=== PATIENT | female | born 1970 | race Caucasian/White ===

== ENCOUNTER 2018-10-04 10:26 | Inpatient (IN) | payer MEDICARE, OTHER ==
[2018-10-04] MEDS ORDERED: IPRATROPIUM-ALBUTEROL 3 ML NEB INHALATION STA (10:41)
[2018-10-04] MEDS ORDERED: LORazepam 2 MG/ML INJ IV STA ×2 (10:46→11:48)
[2018-10-04] MEDS ORDERED: SODIUM CHLORIDE 0.9% 500 ML 500 ML IV STA (10:46)
--- NOTE | 2018-10-04 11:26 | ED ---
SOB HPI <Joe Contreras - Last Filed: 10/04/18 12:33> - General Source: patient, RN notes reviewed Mode of arrival: wheelchair Limitations: no limitations <Timo Bray - Last Filed: 10/04/18 12:36> - General Chief Complaint: Shortness of Breath Stated Complaint: john Time Seen by Provider: 10/04/18 10:36 - History of Present Illness Initial Comments: 48-year-old female presents emergency Department chief complaint of shortness of breath. Patient has known COPD. She's had increased cough, congestion shortness with the last 3 days. She is out of her updraft medications. Patient denies any known fever or chills. She denies any chest pain. She states she just cannot get a full breath in. Patient denies any nausea vomiting diarrhea constipation. Patient has no nasal congestion. (Timo Bray) - Related Data Home Medications Medication Instructions Recorded Confirmed Albuterol Sulfate [Proair Hfa] 2 puff INHALATION RT-Q4H PRN 14 10/04/18 Albuterol Nebulized [Ventolin 2.5 mg INHALATION RT-BID PRN 10/04/18 10/04/18 Nebulized] Budesonide/Formoterol Fumarate 2 puff INHALATION RT-BID PRN 10/04/18 10/04/18 [Symbicort 160-4.5 Mcg Inhaler] Allergies Allergy/AdvReac Type Severity Reaction Status Date / Time Penicillins Allergy Unknown Verified 10/04/18 11:57 Childhood Review of Systems ROS Other: All systems not noted in ROS Statement are negative. <Joe Contreras - Last Filed: 10/04/18 12:33> ROS Other: All systems not noted in ROS Statement are negative. <Timo Bray - Last Filed: 10/04/18 12:36> ROS Statement: Those systems with pertinent positive or pertinent negative responses have been documented in the HPI. Past Medical History Past Medical History: Asthma, COPD, Deep Vein Thrombosis (DVT), Osteoarthritis ( OA) Additional Past Medical History / Comment(s): KIDNEY STONES History of Any Multi-Drug Resistant Organisms: None Reported Past Surgical History: Orthopedic Surgery Additional Past Surgical History / Comment(s): right knee arthroscopic , RIGHT OVARY REMOVED, Past Anesthesia/Blood Transfusion Reactions: No Reported Reaction Past Psychological History: Anxiety, Depression Smoking Status: Former smoker - Past Family History Mother Family Medical History: No Reported History Additional Family Medical History / Comment(s): Diverticulitis Father Family Medical History: Cancer, Congestive Heart Failure (CHF), Diabetes Mellitus, Eye Disorder, Hypertension, Skin Disorder Additional Family Medical History / Comment(s): Cancer from Agent [place], Glaucoma <Timo Bray - Last Filed: 10/04/18 12:36> General Exam Limitations: no limitations General appearance: alert, in no apparent distress Head exam: Present: atraumatic, normocephalic, normal inspection Eye exam: Present: normal appearance, PERRL, EOMI. Absent: scleral icterus, conjunctival injection, periorbital swelling ENT exam: Present: normal oropharynx, mucous membranes moist, TM's normal bilaterally, normal external ear exam Neck exam: Present: normal inspection, full ROM. Absent: tenderness, meningismus, lymphadenopathy Respiratory exam: Present: respiratory distress (Moderate), wheezes. Absent: normal lung sounds bilaterally, rales, rhonchi, stridor Cardiovascular Exam: Present: normal rhythm, tachycardia, normal heart sounds. Absent: systolic murmur, diastolic murmur, rubs, gallop, clicks GI/Abdominal exam: Present: soft, normal bowel sounds. Absent: distended, tenderness, guarding, rebound, rigid <Timo Bray - Last Filed: 10/04/18 12:36> Course <Joe Contreras - Last Filed: 10/04/18 12:33> <Timo Bray - Last Filed: 10/04/18 12:36> Vital Signs 10/04/18 10/04/18 10/04/18 10:29 10:54 11:00 Temperature 98.6 F Pulse Rate 125 H 120 H 118 H Respiratory 25 H Rate Blood Pressure 168/104 O2 Sat by Pulse 95 Oximetry 10/04/18 10/04/18 10/04/18 11:09 12:24 12:34 Temperature Pulse Rate 120 H 112 H 116 H Respiratory Rate Blood Pressure O2 Sat by Pulse Oximetry - Reevaluation(s) Reevaluation #1: 10/04/18 12:33 PA supervision: I proceeded [id number] evaluation the patient she presents with complaints of shortness of breath for last several days she does have a history of COPD she did apparently run out of her medication she also does still smoke cigarettes. She is receiving a total of 3 nebulizer treatments thus far with very minimal improvement. She is dyspneic just with conversation and minimal movements. She will be admitted for inpatient treatment of COPD exacerbation. 10/04/18 12:34 Patient does demonstrate concern is for wheezing with markedly diminished breath sounds bilaterally. She does demonstrate some respiratory distress. She also stated she had some discomfort to her midline of her lower abdomen above her umbilicus after coughing she does have some evidence of rectus strain a hernia that ruled out. (Joe Contreras) Medical Decision Making - Lab Data Result diagrams: 10/04/18 11:10 10/04/18 11:10 <Joe Contreras - Last Filed: 10/04/18 12:33> - Lab Data Result diagrams: 10/04/18 11:10 10/04/18 11:10 <Timo Bray - Last Filed: 10/04/18 12:36> - Medical Decision Making 48-year-old female presented for dyspnea. Patient's found to have COPD exacerbation. Patient had lab work, EKG, chest x-ray. Patient had mild improvement after 2 DuoNeb treatments. Patient given additional albuterol treatment. Patient was given steroids was started on 60 every 6. Patient was counseled in detail greater than 3 minutes for smoking cessation. (Timo Bray ) - Lab Data Lab Results 10/04/18 10/04/18 10/04/18 Range/Units 11:10 11:10 11:10 WBC 8.9 (3.8-10.6) k/uL RBC 5.06 (3.80-5.40) m/uL Hgb 13.1 (11.4-16.0) gm/dL Hct 41.4 (34.0-46.0) % MCV 81.9 (80.0-100.0) fL MCH 25.8 (25.0-35.0) pg MCHC 31.5 (31.0-37.0) g/dL RDW 18.0 H (11.5-15.5) % Plt Count 325 (150-450) k/uL Neutrophils % 74 % Lymphocytes % 18 % Monocytes % 5 % Eosinophils % 1 % Basophils % 0 % Neutrophils # 6.6 (1.3-7.7) k/uL Lymphocytes # 1.6 (1.0-4.8) k/uL Monocytes # 0.4 (0-1.0) k/uL Eosinophils # 0.1 (0-0.7) k/uL Basophils # 0.0 (0-0.2) k/uL Hypochromasia Slight Anisocytosis Slight Microcytosis Slight PT (9.0-12.0) sec INR (<1.2) APTT (22.0-30.0) sec Sodium 140 (137-145) mmol/L Potassium 4.4 (3.5-5.1) mmol/L Chloride 106 (98-107) mmol/L Carbon Dioxide 25 (22-30) mmol/L Anion Gap 9 mmol/L BUN 11 (7-17) mg/dL Creatinine 0.77 (0.52-1.04) mg/dL Est GFR (CKD-EPI)AfAm >90 (>60 ml/min/1.73 sqM) Est GFR (CKD-EPI)NonAf >90 (>60 ml/min/1.73 sqM) Glucose 104 H (74-99) mg/dL Calcium 9.4 (8.4-10.2) mg/dL Magnesium 2.1 (1.6-2.3) mg/dL Total Bilirubin 0.4 (0.2-1.3) mg/dL AST 19 (14-36) U/L ALT 25 (9-52) U/L Alkaline Phosphatase 101 (38-126) U/L Total Creatine Kinase 49 (30-135) U/L CK-MB (CK-2) 0.2 (0.0-2.4) ng/mL CK-MB (CK-2) Rel Index 0.4 Troponin I <0.012 (0.000-0.034) ng/mL NT-Pro-B Natriuret Pep pg/mL Total Protein 7.7 (6.3-8.2) g/dL Albumin 4.5 (3.5-5.0) g/dL 10/04/18 10/04/18 Range/Units 11:10 11:10 WBC (3.8-10.6) k/uL RBC (3.80-5.40) m/uL Hgb (11.4-16.0) gm/dL Hct (34.0-46.0) % MCV (80.0-100.0) fL MCH (25.0-35.0) pg MCHC (31.0-37.0) g/dL RDW (11.5-15.5) % Plt Count (150-450) k/uL Neutrophils % % Lymphocytes % % Monocytes % % Eosinophils % % Basophils % % Neutrophils # (1.3-7.7) k/uL Lymphocytes # (1.0-4.8) k/uL Monocytes # (0-1.0) k/uL Eosinophils # (0-0.7) k/uL Basophils # (0-0.2) k/uL Hypochromasia Anisocytosis Microcytosis PT 10.0 (9.0-12.0) sec INR 0.9 (<1.2) APTT 23.2 (22.0-30.0) sec Sodium (137-145) mmol/L Potassium (3.5-5.1) mmol/L Chloride (98-107) mmol/L Carbon Dioxide (22-30) mmol/L Anion Gap mmol/L BUN (7-17) mg/dL Creatinine (0.52-1.04) mg/dL Est GFR (CKD-EPI)AfAm (>60 ml/min/1.73 sqM) Est GFR (CKD-EPI)NonAf (>60 ml/min/1.73 sqM) Glucose (74-99) mg/dL Calcium (8.4-10.2) mg/dL Magnesium (1.6-2.3) mg/dL Total Bilirubin (0.2-1.3) mg/dL AST (14-36) U/L ALT (9-52) U/L Alkaline Phosphatase (38-126) U/L Total Creatine Kinase (30-135) U/L CK-MB (CK-2) (0.0-2.4) ng/mL CK-MB (CK-2) Rel Index Troponin I (0.000-0.034) ng/mL NT-Pro-B Natriuret Pep 38 pg/mL Total Protein (6.3-8.2) g/dL Albumin (3.5-5.0) g/dL Disposition <Joe Contreras - Last Filed: 10/04/18 12:33> <Timo Bray - Last Filed: 10/04/18 12:36> Clinical Impression: Acute exacerbation of chronic obstructive pulmonary disease (COPD) Disposition: ADMITTED IP TO THIS HOSP Condition: Fair Referrals: Jerman Darnell MD [Primary Care Provider] - 1-2 days
[2018-10-04 11:28] LABS: Anisocytosis Slight; Basophils % (A) 0 %; Eosinophils # (A) 0.1 k/uL (0-0.7); Eosinophils % (A) 1 %; HCT 41.4 % (34.0-46.0); HGB 13.1 gm/dL (11.4-16.0); Hypochromasia Slight; Lymphocytes # (A) 1.6 k/uL (1.0-4.8); Lymphocytes % (A) 18 %; MCH 25.8 pg (25.0-35.0); MCHC 31.5 g/dL (31.0-37.0); MCV 81.9 fL (80.0-100.0); Mean Platelet Volume 6.6; Microcytosis Slight; Monocytes # (A) 0.4 k/uL (0-1.0); Monocytes % (A) 5 %; Neutrophils # (A) 6.6 k/uL (1.3-7.7); Neutrophils % (A) 74 %; Platelet Count 325 k/uL (150-450); RBC 5.06 m/uL (3.80-5.40); WBC 8.9 k/uL (3.8-10.6)
[2018-10-04 11:43] LABS: ALT 25 U/L (9-52); AST 19 U/L (14-36); Albumin 4.5 g/dL (3.5-5.0); Alkaline Phosphatase 101 U/L (38-126); Anion Gap 9 mmol/L; Blood Urea Nitrogen 11 mg/dL (7-17); Calcium 9.4 mg/dL (8.4-10.2); Carbon Dioxide 25 mmol/L (22-30); Chloride 106 mmol/L (98-107); Glucose 104 mg/dL (74-99); Magnesium 2.1 mg/dL (1.6-2.3); Potassium 4.4 mmol/L (3.5-5.1); Sodium 140 mmol/L (137-145); Total Bilirubin 0.4 mg/dL (0.2-1.3); Total Protein 7.7 g/dL (6.3-8.2)
--- NOTE | 2018-10-04 11:47 | XR ---
EXAMINATION TYPE: XR chest 2V DATE OF EXAM: 10/04/2018 COMPARISON: 03/27/2014 HISTORY: Difficulty breathing TECHNIQUE: Frontal and lateral views of the chest are obtained. FINDINGS: There is no focal air space opacity, pleural effusion, or pneumothorax seen. The cardiac silhouette size is within normal limits. The osseous structures are intact. IMPRESSION: No acute cardiopulmonary process.
[2018-10-04 11:52] LABS: Creatine Kinase 49 U/L (30-135)
[2018-10-04 12:05] LABS: Creatine Kinase MB 0.2 ng/mL (0.0-2.4); Troponin I <0.012 ng/mL (0.000-0.034)
[2018-10-04 12:06] LABS: INR 0.9 (<1.2); Partial Thromboplastin Time 23.2 sec (22.0-30.0)
[2018-10-04] MEDS ORDERED: methylPREDNISolone SOD SUCCI 125 MG/2 ML VIAL IV STA (12:15)
[2018-10-04] MEDS ORDERED: ALBUTEROL NEBULIZED 2.5 MG/3 ML INHALATION STA (12:15)
[2018-10-04] MEDS ORDERED: KETOROLAC 30 MG/ML 1 ML VIAL IVP STA (12:32)
[2018-10-04] MEDS ORDERED: ALBUTEROL NEBULIZED 2.5 MG/3 ML INHALATION PRN ×2 (12:33→19:31)
[2018-10-04] MEDS: BUTALB/APAP/CAFF 50-325-40MG TAB PO PRN (14:07)
[2018-10-04] MEDS: IPRATROPIUM-ALBUTEROL 3 ML NEB INHALATION SCH ×2 (15:54→19:22)
[2018-10-04] MEDS: methylPREDNISolone SOD SUCCI 125 MG/2 ML VIAL IV SCH ×2 (17:23→23:44)
[2018-10-04] MEDS: SYMBICORT 160-4.5 MCG INHALER INHALATION PRN (19:22)
[2018-10-04] MEDS ORDERED: ALBUTEROL INHALER 60 PUFF/8 GM INHALER INHALATION PRN (19:31)
--- NOTE | 2018-10-04 19:54 | P.HPIM ---
History of Present Illness H&P Date: 10/04/18 Chief Complaint: Acute respiratory failure, COPD exacerbation, severe bronchitis , tachycardi 48-year-old female one of Dr. capone's patient with past medical history of COPD, asthma, DVT thrombosis osteoarthritis and chronic depression is on to have history of kidney stone and chronic smoking who developed to have worsening dyspnea and shortness of breath for the last 3 days become much worse lately and up having inspiratory expiratory wheezes with worsening symptoms in the last 24 hours ended up coming to the emergency department at [facility] where was seen and evaluated was very hypoxic the tip neck tachycardic chest x-ray did not reveal any consultation at the time she was diagnosed with severe bronchitis tachycardia and COPD excessive patient started on Solu-Medrol IV azithromycin along with updraft treatment consult pulmonary and admit patient to the hospital for the above problem. Review of Systems CONSTITUTIONAL: Well-developed no acute respiratory distress. EYES: No icterus sclerae, no conjunctivitis. EARS, NOSE, MOUTH, THROAT, and FACE: No sore throat, lymphadenopathy, carotid bruits or deformity. RESPIRATORY: Severe dyspnea and shortness of breath and wheezes CARDIOVASCULAR: Palpitation and shortness of breath. GASTROINTESTINAL: No Abd pain, Nausea or vomiting, no Diarrhea or constipation, No GI Bleed, no distention or masses. GENITOURINARY: Negative for Hematuria or UTI, no kidney stones. INTEGUMENT/BREAST: Negative for any muscular injury with mild osteoarthritis.. HEMATOLOGIC/LYMPHATIC: Negative for bleed or purpura. MUSCULOSKELTAL: Negative for Myalgia or arthralgia. NEURLOGICAL: No LOC, Sz or syncope, blurred vision dizziness or abnormality.. BEHAVIORAL/PSYCH: Negative. ENDOCRINE: Negative. Past Medical History Past Medical History: Asthma, COPD, Deep Vein Thrombosis (DVT), Osteoarthritis ( OA) Additional Past Medical History / Comment(s): Bronchitis, chronic pain-back and cervical, migraines, DJD, DVT L leg in 2013, kidney stones. History of Any Multi-Drug Resistant Organisms: None Reported Past Surgical History: Orthopedic Surgery Additional Past Surgical History / Comment(s): right knee arthroscopic, R oophorectomy d/t cyst, bilateral cervical facet blocks. Past Anesthesia/Blood Transfusion Reactions: No Reported Reaction Smoking Status: Current every day smoker - Past Family History Mother Family Medical History: No Reported History Additional Family Medical History / Comment(s): Diverticulitis Father Family Medical History: Cancer, Congestive Heart Failure (CHF), Diabetes Mellitus, Eye Disorder, Hypertension Additional Family Medical History / Comment(s): Father was exposed to agent orange. He at the age of 46 from diabetic complications. Medications and Allergies Home Medications Medication Instructions Recorded Confirmed Type Albuterol Sulfate [Proair Hfa] 2 puff INHALATION RT-Q4H PRN 03/11/10/04/18 History Albuterol Nebulized [Ventolin 2.5 mg INHALATION RT-BID PRN 10/04/18 10/04/18 History Nebulized] Budesonide/Formoterol Fumarate 2 puff INHALATION RT-BID PRN 10/04/18 10/04/18 History [Symbicort 160-4.5 Mcg Inhaler] Allergies Allergy/AdvReac Type Severity Reaction Status Date / Time Penicillins Allergy Unknown Verified 10/04/18 11:57 Childhood Physical Exam Vitals: Vital Signs Temp Pulse Pulse Resp BP BP Pulse Ox 10/04/18 19:34 98 10/04/18 19:23 98 10/04/18 16:02 100 10/04/18 15:55 100 10/04/18 13:57 97.5 F L 116 H 16 149/80 95 10/04/18 13:10 18 142/90 95 10/04/18 12:34 116 H 10/04/18 12:24 112 H 10/04/18 11:09 120 H 10/04/18 11:00 118 H 10/04/18 10:54 120 H 10/04/18 10:29 98.6 F 125 H 25 H 168/104 95 Intake and Output 10/04/18 10/04/18 10/04/18 06:59 14:59 22:59 Intake Total 240 480 Balance 240 480 Intake: Oral 240 480 Other: # Voids 1 Weight 81.647 kg General Appearance: Alert, cooperative, in mild respiratory distress, appears stated age. Neck HEENT: Supple, no lymphadenopathy, no thyroid enlargement, no carotid bruits. Lungs: Decreased breath sound bilaterally with fine rhonchi positive mild lower lobe crackles and inspiratory expiratory wheezes. Chest Wall: Decrease expansion with deep inspiration no tenderness and no deformity was found on exam, no costochondral pain or discomfort. Heart: Regular rate and rhythm, S1, S2 normal, no murmur, rub or gallop positive tachycardia. Back: Symmetric, no curvature, ROM normal, no CVA tenderness. Abdomen: Soft, non-tender, bowel sounds active all four quadrants, no masses, no organomegaly. Extremities: Extremities normal, atraumatic, no cyanosis or edema. Pulses: 2+ and symmetric. Skin: Skin color, texture, tugor normal, no rashes or lesions. Neurologic: Alert oriented x3 cranial nerves II through XII intact, no motor deficit, no abnormal balance or gait. Results CBC & Chem 7: 10/04/18 11:10 10/04/18 11:10 Labs: Abnormal Lab Results - Last 24 Hours (Table) 10/04/18 10/04/18 Range/Units 11:10 11:10 RDW 18.0 H (11.5-15.5) % Glucose 104 H (74-99) mg/dL Thrombosis Risk Factor Assmnt - DVT/VTE Prophylaxis DVT/VTE Prophylaxis: Pharmacologic Prophylaxis ordered, Mechanical Prophylaxis ordered - Choose All That Apply Any of the Below Risk Factors Present?: Yes Each Factor Represents 1 point: Abnormal pulmonary function (COPD), Age 41-60 years, Obesity (BMI >25) Other Risk Factors: No Other congenital or acquired thrombophilia - If yes, enter type in comment: No Thrombosis Risk Factor Assessment Total Risk Factor Score: 3 Thrombosis Risk Factor Assessment Level: Moderate Risk Assessment and Plan Assessment: 1 acute respiratory failure: Secondary to COPD excessive patient along with severe bronchitis, will continue patient on O2, updraft treatment, Pulmicort and Solu-Medrol will consult pulmonary continue to watch patient hemodynamic status carefully. 2 COPD excessive patient: Consult pulmonary continue patient on Solu-Medrol Pulmicort and mixup with graft. 3 severe bronchitis: No sign of consolidation might be early pneumonitis in the right lower lobe will continue patient on Zithromax patient is ALLERGIC to Rocephin if needed can use Vanco her doxycycline in addition to it. 4 chronic history of smoking: Patient be on nicotine patch 14 mg daily. 5 tachycardia: Mostly secondary to but agonist with her updraft treatment continue to watch patient on heart monitor if continued to be symptomatic might use smaller dose of calcium channel jo ann. 6 GI prophylaxis: Patient will be on Pepcid 20 mg daily. 7 DVT prophylaxis: Patient will be on heparin 5000 units subcutaneous twice a day. CODE STATUS: Full code. Admit patient to inpatient status for more than 2 nights.[id number]
[2018-10-04 20:19] LABS: Glucose,Whole Blood 233 mg/dL (75-99)
[2018-10-04] MEDS ORDERED: DILTIAZEM ORAL 60 MG TAB PO STA (22:56)
[2018-10-05 04:57] LABS: Hemoglobin A1C 5.5 % (4.0-6.0)
[2018-10-05] MEDS: methylPREDNISolone SOD SUCCI 125 MG/2 ML VIAL IV SCH (06:20)
[2018-10-05 07:14] LABS: Glucose,Whole Blood 135 mg/dL (75-99)
[2018-10-05] MEDS: INSULIN ASPART 100 UNIT/ML 1 ML 10 ML VIAL SQ SCH ×4 (07:48→22:10)
[2018-10-05] MEDS: NICOTINE 14MG/24HR PATCH TRANSDERM SCH (07:48)
[2018-10-05] MEDS: IPRATROPIUM-ALBUTEROL 3 ML NEB INHALATION SCH ×4 (07:48→20:02)
[2018-10-05] MEDS: SYMBICORT 160-4.5 MCG INHALER INHALATION PRN ×2 (07:48→20:05)
[2018-10-05] MEDS ORDERED: DILTIAZEM ORAL 30 MG TAB PO SCH ×2 (09:00→13:45)
[2018-10-05] MEDS: AZITHROMYCIN 500 MG TAB PO SCH (09:13)
[2018-10-05] MEDS: BUTALB/APAP/CAFF 50-325-40MG TAB PO PRN ×2 (09:20→22:15)
[2018-10-05 11:24] LABS: Glucose,Whole Blood 191 mg/dL (75-99)
[2018-10-05] MEDS: ALPRAZolam 0.25 MG TAB PO PRN ×2 (12:36→22:17)
[2018-10-05] MEDS: DILTIAZEM ORAL 60 MG TAB PO SCH ×3 (13:53→22:10)
--- NOTE | 2018-10-05 15:47 | P.PN ---
Subjective Progress Note Date: 10/05/18 48-year-old female one of Dr. capone's patient with past medical history of COPD, asthma, DVT thrombosis osteoarthritis and chronic depression is on to have history of kidney stone and chronic smoking who developed to have worsening dyspnea and shortness of breath for the last 3 days become much worse lately and up having inspiratory expiratory wheezes with worsening symptoms in the last 24 hours ended up coming to the emergency department at [facility] where was seen and evaluated was very hypoxic the tip neck tachycardic chest x-ray did not reveal any consultation at the time she was diagnosed with severe bronchitis tachycardia and COPD excessive patient started on Solu-Medrol IV azithromycin along with updraft treatment consult pulmonary and admit patient to the hospital for the above problem. 10/05; patient continues to have shortness of breath. She states she is having some problems with anxiety and increased stress. 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 The water has been turned off to force her son out of the apartment. Social work consult has been requested. Patient is also noticed to be tachycardic and was started on Cardizem last evening. She is on a nicotine patch. Plan to increase Cardizem. Solu-Medrol will be decreased to 40 mg every 8 hours. Patient is followed by Dr. Wetzel. Review of Systems CONSTITUTIONAL: Well-developed no acute respiratory distress. EYES: No icterus sclerae, no conjunctivitis. EARS, NOSE, MOUTH, THROAT, and FACE: No sore throat, lymphadenopathy, carotid bruits or deformity. RESPIRATORY: Severe dyspnea and shortness of breath and wheezes CARDIOVASCULAR: Palpitation and shortness of breath. GASTROINTESTINAL: No Abd pain, Nausea or vomiting, no Diarrhea or constipation, No GI Bleed, no distention or masses. GENITOURINARY: Negative for Hematuria or UTI, no kidney stones. INTEGUMENT/BREAST: Negative for any muscular injury with mild osteoarthritis.. HEMATOLOGIC/LYMPHATIC: Negative for bleed or purpura. MUSCULOSKELTAL: Negative for Myalgia or arthralgia. NEURLOGICAL: No LOC, Sz or syncope, blurred vision dizziness or abnormality.. BEHAVIORAL/PSYCH: complains of anxiety. ENDOCRINE: Negative. Objective - Vital Signs Vital signs: Vital Signs Temp 96.5 F L 10/05/18 05:00 Pulse 100 10/05/18 08:01 Resp 16 10/05/18 05:00 BP 175/80 10/05/18 05:00 Pulse Ox 94 L 10/05/18 05:00 Intake & Output 10/04/18 10/05/18 10/05/18 18:59 06:59 18:59 Intake Total 720 1080 Balance 720 1080 Weight 81.647 kg Intake: IV 10 0.9 10 Oral 720 1070 Other: Voiding Method Toilet Toilet # Voids 1 2 - Exam General Appearance: Alert, cooperative, in no respiratory distress, appears stated age. Neck HEENT: Supple, no lymphadenopathy, no thyroid enlargement, no carotid bruits. Lungs: Decreased breath sound bilaterally with fine rhonchi positive mild lower lobe crackles and inspiratory expiratory wheezes. Chest Wall: Decrease expansion with deep inspiration no tenderness and no deformity was found on exam, no costochondral pain or discomfort. Heart: Regular rate and rhythm, S1, S2 normal, no murmur, rub or gallop positive tachycardia. Back: Symmetric, no curvature, ROM normal, no CVA tenderness. Abdomen: Soft, non-tender, bowel sounds active all four quadrants, no masses, no organomegaly. Extremities: Extremities normal, atraumatic, no cyanosis or edema. Pulses: 2+ and symmetric. Skin: Skin color, texture, tugor normal, no rashes or lesions. Neurologic: Alert oriented x3 cranial nerves II through XII intact, no motor deficit, no abnormal balance or gait. - Labs CBC & Chem 7: 10/04/18 11:10 10/04/18 11:10 Labs: Abnormal Lab Results - Last 24 Hours (Table) 10/04/18 10/04/18 10/04/18 Range/Units 11:10 11:10 20:17 RDW 18.0 H (11.5-15.5) % Glucose 104 H (74-99) mg/dL POC Glucose (mg/dL) 233 H (75-99) mg/dL 10/05/18 Range/Units 07:13 RDW (11.5-15.5) % Glucose (74-99) mg/dL POC Glucose (mg/dL) 135 H (75-99) mg/dL Assessment and Plan Plan: 1 acute respiratory failure: Secondary to COPD excessive patient along with severe bronchitis, will continue patient on O2, updraft treatment, Pulmicort and Solu-Medrol decreased to 40 mg every [address] Damari smith. 2 COPD excessive patient: Consult pulmonary continue patient on Solu-Medrol Pulmicort and mixup with graft. 3 severe bronchitis: No sign of consolidation might be early pneumonitis in the right lower lobe will continue patient on Zithromax patient is ALLERGIC to Rocephin if needed can use Vanco her doxycycline in addition to it. 4 chronic history of smoking: Patient be on nicotine patch 14 mg daily. 5 tachycardia: Mostly secondary to but agonist with her updraft treatment continue to watch patient on heart monitor if continued to be symptomatic might use smaller dose of calcium channel jo ann. 6 GI prophylaxis: Patient will be on Pepcid 20 mg daily. 7 DVT prophylaxis: Patient will be on heparin 5000 units subcutaneous twice a day. CODE STATUS: Full code. discharge plan: Return home. Consult with social work regarding home situation. Impression and plan of care have been directed as dictated by the signing physician. Kathryn Guevara nurse practitioner acting as scribe for signing physician.
--- NOTE | 2018-10-05 16:33 | P.CNPUL ---
History of Present Illness Consult date: 10/05/18 Reason for consult: dyspnea, COPD History of present illness: A pleasant 48-year-old female patient with known history of COPD coming in for increased dyspnea cough chest that is so wheezing. The patient has long history of smoking and she was smoking up to 2 pack of sedative sitting current she is down to 1 pack of cigarettes a day. She is not taking or using any form of weight and suspected medications regarding her COPD which is mainly relying on albuterol nebulizer on an as-needed basis. She has been smoking and she's been exposed to cold weather and she thinks these were the main triggers for acute COPD exacerbation and the patient came in for increased dyspnea cough and wheeze. Chest x-ray shows no acute abnormalities. The patient was slightly tachycardic and she was in sinus tachycardia that was attributed to the above- mentioned exacerbation. No fever. No chills. No hemoptysis. No pleurisy. No swelling in lower extremities. She has had a previous DVT in the left lower extremity and this was many years back that was treated and currently she is off anticoagulation. No exposure to sick contacts. No chills history. No aspiration. No history of coronary artery disease or congestion heart failure. She is currently on a combination of DuoNeb nebulized she was on the clock and IV Solu Medrol and she states that she is already feeling better. She has oxygen at home that she is on the when necessary basis. She has seen Dr. Harmon many years back, and her last hospital physician for COPD exacerbation was in 2012. Review of Systems Constitutional: Denies chills, Denies fever Eyes: denies as per HPI, denies blurred vision, denies bulging eye, denies decreased vision, denies diplopia, denies discharge, denies dry eye, denies irritation, denies itching, denies pain, denies photophobia, denies loss of peripheral vision, denies loss of vision, denies tunnel vision/blind spots Ears: deny: decreased hearing, ear discharge, earache, tinnitus Ears, nose, mouth and throat: Denies headache, Denies sore throat Breasts: absent: as per HPI, change in shape, gynecomastia, masses, nipple discharge, pain, skin changes, swelling Cardiovascular: Reports decreased exercise tolerance, Reports dyspnea on exertion Respiratory: Reports cough, Reports cough with sputum, Reports dyspnea, Reports wheezing Gastrointestinal: Denies abdominal pain, Denies diarrhea, Denies nausea, Denies vomiting Genitourinary: Denies dysuria, Denies hematuria Musculoskeletal: Reports as per HPI Musculoskeletal: absent: ankle pain, ankle stiffness, ankle swelling, as per HPI , elbow pain, elbow stiffness, elbow swelling, foot pain, foot stiffness, foot swelling, hand pain, hand stiffness, hand swelling, hip pain, hip stiffness, hip swelling, knee pain, knee stiffness, knee swelling, shoulder pain, shoulder stiffness, shoulder swelling, wrist pain, wrist stiffness, wrist swelling Integumentary: Denies pruritus, Denies rash Neurological: Reports as per HPI Psychiatric: Reports as per HPI Endocrine: Reports as per HPI Hematologic/Lymphatic: Reports as per HPI Allergic/Immunologic: Reports as per HPI Past Medical History Past Medical History: Asthma, COPD, Deep Vein Thrombosis (DVT), Osteoarthritis ( OA) Additional Past Medical History / Comment(s): Bronchitis, chronic pain-back and cervical, migraines, DJD, DVT L leg in 2012, kidney stones. History of Any Multi-Drug Resistant Organisms: None Reported Past Surgical History: Orthopedic Surgery Additional Past Surgical History / Comment(s): right knee arthroscopic, R oophorectomy d/t cyst, bilateral cervical facet blocks. Past Anesthesia/Blood Transfusion Reactions: No Reported Reaction Smoking Status: Current every day smoker - Past Family History Mother Family Medical History: No Reported History Additional Family Medical History / Comment(s): Diverticulitis Father Family Medical History: Cancer, Congestive Heart Failure (CHF), Diabetes Mellitus, Eye Disorder, Hypertension Additional Family Medical History / Comment(s): Father was exposed to agent orange. He at the age of 46 from diabetic complications. Medications and Allergies Home Medications Medication Instructions Recorded Confirmed Type Albuterol Sulfate [Proair Hfa] 2 puff INHALATION RT-Q4H PRN 03/11/10/04/18 History Albuterol Nebulized [Ventolin 2.5 mg INHALATION RT-BID PRN 10/04/18 10/04/18 History Nebulized] Budesonide/Formoterol Fumarate 2 puff INHALATION RT-BID PRN 10/04/18 10/04/18 History [Symbicort 160-4.5 Mcg Inhaler] Allergies Allergy/AdvReac Type Severity Reaction Status Date / Time Penicillins Allergy Unknown Verified 12/06/18 11:57 Childhood Physical Exam Vitals: Vital Signs Temp Pulse Pulse Resp BP Pulse Ox 10/05/18 16:22 90 10/05/18 16:07 92 96 10/05/18 12:29 97.9 F 117 H 16 125/64 96 10/05/18 12:05 96 10/05/18 11:55 96 10/05/18 08:01 100 10/05/18 07:48 104 H 10/05/18 05:00 96.5 F L 100 16 175/80 94 L 10/05/18 00:00 111 H 20 10/04/18 21:20 98.7 F 127 H 20 151/67 94 L 10/04/18 19:34 98 10/04/18 19:23 98 Intake and Output 10/05/18 10/05/18 10/05/18 06:59 14:59 22:59 Intake Total 590 Balance 590 Intake: Oral 590 Other: Voiding Method Toilet Toilet # Voids 2 # Bowel Movements 0 Gen. appearance, comfortable likely distress. Head exam was generally normal. There was no scleral icterus or corneal arcus. Mucous membranes were moist. Neck was supple and without jugular venous distension, thyromegaly, or carotid bruits. Carotids were easily palpable bilaterally. There was no adenopathy. Lungs sounds are diminished bilaterally along with prolongation of expiratory phase of breathing and scattered external wheezes without the lung belcher bilaterally. Cardiac exam revealed the PMI to be normally situated and sized. The rhythm was regular and no extrasystoles were noted during several minutes of auscultation. The first and second heart sounds were normal and physiologic splitting of the second heart sound was noted. There were no murmurs, rubs, clicks, or gallops. Abdominal exam revealed normal bowel sounds. The abdomen was soft, non-tender, and without masses, organomegaly, or appreciable enlargement of the abdominal aorta. Examination of the extremities revealed easily palpable radial, femoral and pedal pulses. There was no cyanosis, clubbing or edema. Examination of the skin revealed no evidence of significant rashes, suspicious appearing nevi or other concerning lesions. Neurologically awake and alert and there is no focal neurological deficits. Results - Laboratory Findings CBC and BMP: 10/04/18 11:10 10/04/18 11:10 PT/INR, D-dimer PT 10.0 sec (9.0-12.0) 10/04/18 11:10 INR 0.9 (<1.2) 10/04/18 11:10 Abnormal lab findings: Abnormal Labs 10/04/18 10/04/18 10/04/18 11:10 11:10 20:17 RDW 18.0 H Glucose 104 H POC Glucose (mg/dL) 233 H 10/05/18 10/05/18 07:13 11:23 RDW Glucose POC Glucose (mg/dL) 135 H 191 H - Diagnostic Findings Chest x-ray: image reviewed Assessment and Plan Assessment: assessment 1 acute COPD exacerbation, chest x-ray free of any acute pulmonary infiltrates. Exacerbating factor could've been cold exposure/second exposures 2 chronic hypoxic respiratory failure related to COPD and the patient is O2 dependent on outpatient basis 3 chronic nicotine addiction 4 remote history of a DVT of the left lower extremity back in 2012 5 sinus tachycardia 6chronic osteoarthritis 7 chronic pain involving the back and the neck along with history of degenerative arthritis 8 history of kidney stones Plan smoking cessation counseling was done. Continue DuoNeb nebulized treatments around the clock. Continue obesity Medrol. Ideally would like to put this patient on a maintenance inhaler, a combination of long-acting cholinergic and beta agonists. She tells that she does not have any medication coverage for the step of COPD medications and the cost of the medications quite high.would like to investigate this further and see if there is any affordable maintenance inhaler that she continues on outpatient basis. Outpatient PFT. Meanwhile during her inpatient stay, continue current treatment and emphasized and smoking cessation keep her on oxygen at 2 L per minute nasal cannula which she can also use on outpatient basis. Offer nicotine patch. Chest x-ray was reviewed.monitor the cardiac rhythm. Continue with oral Cardizem. We'll continue to follow.
[2018-10-05 16:35] LABS: Glucose,Whole Blood 159 mg/dL (75-99)
[2018-10-05] MEDS: methylPREDNISolone SOD SUCCI 40 MG/ML 1 ML VIAL IV SCH (17:27)
[2018-10-05 20:48] LABS: Glucose,Whole Blood 211 mg/dL (75-99)
[2018-10-06] MEDS: methylPREDNISolone SOD SUCCI 40 MG/ML 1 ML VIAL IV SCH ×2 (01:12→09:31)
[2018-10-06 07:16] LABS: Glucose,Whole Blood 123 mg/dL (75-99)
[2018-10-06] MEDS: INSULIN ASPART 100 UNIT/ML 1 ML 10 ML VIAL SQ SCH ×2 (07:55→12:52)
[2018-10-06] MEDS: SYMBICORT 160-4.5 MCG INHALER INHALATION PRN (08:46)
[2018-10-06] MEDS: IPRATROPIUM-ALBUTEROL 3 ML NEB INHALATION SCH ×2 (08:46→12:07)
[2018-10-06] MEDS: ALPRAZolam 0.25 MG TAB PO PRN (09:31)
[2018-10-06] MEDS: NICOTINE 14MG/24HR PATCH TRANSDERM SCH (09:31)
[2018-10-06] MEDS: DILTIAZEM ORAL 60 MG TAB PO SCH (09:32)
[2018-10-06] MEDS: AZITHROMYCIN 500 MG TAB PO SCH (09:32)
--- NOTE | 2018-10-06 10:33 | ECHOF ---
Referral Reason:lvfunction MEASUREMENTS -------- HEIGHT: 162.6 cm WEIGHT: 81.6 kg BP: RVIDd: 2.2 cm (< 3.3) IVSd: 1.3 cm (0.6 - 1.1) LVIDd: 3.9 cm (3.9 - 5.3) LVPWd: 1.2 cm (0.6 - 1.1) IVSs: 1.4 cm LVIDs: 2.8 cm LVPWs: 0.9 cm Ao Diam: 2.9 cm (2.0 - 3.7) AV Cusp: 1.8 cm (1.5 - 2.6) LA Diam: 3.2 cm (2.7 - 3.8) MV EXCURSION: 19.783 mm (> 18.000) MV EF SLOPE: 86 mm/s (70 - 150) EPSS: 0.7 cm MV E Nathan: 0.55 m/s MV DecT: 183 ms MV A Nathan: 1.01 m/s MV E/A Ratio: 0.54 RAP: 5.00 mmHg RVSP: 15.01 mmHg FINDINGS -------- Sinus rhythm. This was a technically adequate study. The left ventricular size is normal. There is mild concentric left ventricular hypertrophy. Overa ll left ventricular systolic function is normal with, an EF between 55 - 60 %. The right ventricle is normal in size. The left atrial size is normal. The right atrial size is normal. The aortic valve is trileaflet, and appears structurally normal. No aortic stenosis or regurgitation. Mild mitral annular calcification present. Mild mitral regurgitation is present. Mild tricuspid regurgitation present. There is no evidence of pulmonary hypertension. The right v entricular systolic pressure, as measured by Doppler, is 15.01mmHg. The aortic root size is normal. There is no pericardial effusion. CONCLUSIONS -------- 1. The left ventricular size is normal. 2. There is mild concentric left ventricular hypertrophy. 3. Overall left ventricular systolic function is normal with, an EF between 55 - 60 %. 4. The right ventricle is normal in size. 5. The left atrial size is normal. 6. The right atrial size is normal. 7. The aortic valve is trileaflet, and appears structurally normal. No aortic stenosis or regurgitati on. 8. Mild mitral annular calcification present. 9. Mild mitral regurgitation is present. 10. Mild tricuspid regurgitation present. 11. There is no evidence of pulmonary hypertension. 12. The right ventricular systolic pressure, as measured by Doppler, is 15.01mmHg. 13. The aortic root size is normal. 14. There is no pericardial effusion. [employer] HOME MANAGER: Sania Mcconnell RDCS
[2018-10-06 11:19] LABS: Glucose,Whole Blood 139 mg/dL (75-99)
--- NOTE | 2018-10-06 12:15 | P.PN ---
Subjective Progress Note Date: 10/06/18 48-year-old female one of Dr. capone's patient with past medical history of COPD, asthma, DVT thrombosis osteoarthritis and chronic depression is on to have history of kidney stone and chronic smoking who developed to have worsening dyspnea and shortness of breath for the last 3 days become much worse lately and up having inspiratory expiratory wheezes with worsening symptoms in the last 24 hours ended up coming to the emergency department at [facility] where was seen and evaluated was very hypoxic the tip neck tachycardic chest x-ray did not reveal any consultation at the time she was diagnosed with severe bronchitis tachycardia and COPD excessive patient started on Solu-Medrol IV azithromycin along with updraft treatment consult pulmonary and admit patient to the hospital for the above problem. 10/05; patient continues to have shortness of breath. She states she is having some problems with anxiety and increased stress. 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 The water has been turned off to force her son out of the apartment. Social work consult has been requested. Patient is also noticed to be tachycardic and was started on Cardizem last evening. She is on a nicotine patch. Plan to increase Cardizem. Solu-Medrol will be decreased to 40 mg every 8 hours. Patient is followed by Dr. Wetzel. 10/06: Patient is doing a lot better today and she wants to be discharged home today in follow-up with pulmonary as an outpatient. Less short of breath she has no coughing or hemoptysis, she has no abdominal pain, nausea, vomiting or diarrhea she is Valium for few days. Review of Systems CONSTITUTIONAL: Well-developed no acute respiratory distress. EYES: No icterus sclerae, no conjunctivitis. EARS, NOSE, MOUTH, THROAT, and FACE: No sore throat, lymphadenopathy, carotid bruits or deformity. RESPIRATORY: Severe dyspnea and shortness of breath and wheezes CARDIOVASCULAR: Palpitation and shortness of breath. GASTROINTESTINAL: No Abd pain, Nausea or vomiting, no Diarrhea or constipation, No GI Bleed, no distention or masses. GENITOURINARY: Negative for Hematuria or UTI, no kidney stones. INTEGUMENT/BREAST: Negative for any muscular injury with mild osteoarthritis.. HEMATOLOGIC/LYMPHATIC: Negative for bleed or purpura. MUSCULOSKELTAL: Negative for Myalgia or arthralgia. NEURLOGICAL: No LOC, Sz or syncope, blurred vision dizziness or abnormality.. BEHAVIORAL/PSYCH: complains of anxiety. ENDOCRINE: Negative. Objective - Vital Signs Vital signs: Vital Signs Temp 97.7 F 10/06/18 05:00 Pulse 107 H 10/06/18 05:00 Resp 18 10/06/18 05:00 BP 122/56 10/06/18 05:00 Pulse Ox 95 10/06/18 05:00 Intake & Output 10/05/18 10/06/18 10/06/18 18:59 06:59 18:59 Weight 81.647 kg Other: Voiding Method Toilet Toilet # Voids 1 # Bowel Movements 0 0 - Exam - Exam General Appearance: Alert, cooperative, in no respiratory distress, appears stated age. Neck HEENT: Supple, no lymphadenopathy, no thyroid enlargement, no carotid bruits. Lungs: Decreased breath sound bilaterally with fine rhonchi positive mild lower lobe crackles and inspiratory expiratory wheezes. Chest Wall: Decrease expansion with deep inspiration no tenderness and no deformity was found on exam, no costochondral pain or discomfort. Heart: Regular rate and rhythm, S1, S2 normal, no murmur, rub or gallop positive tachycardia. Back: Symmetric, no curvature, ROM normal, no CVA tenderness. Abdomen: Soft, non-tender, bowel sounds active all four quadrants, no masses, no organomegaly. Extremities: Extremities normal, atraumatic, no cyanosis or edema. Pulses: 2+ and symmetric. Skin: Skin color, texture, tugor normal, no rashes or lesions. Neurologic: Alert oriented x3 cranial nerves II through XII intact, no motor deficit, no abnormal balance or gait. - Labs CBC & Chem 7: 10/04/18 11:10 10/04/18 11:10 Labs: Abnormal Lab Results - Last 24 Hours (Table) 10/05/18 10/05/18 10/05/18 Range/Units 11:23 16:34 20:45 POC Glucose (mg/dL) 191 H 159 H 211 H (75-99) mg/dL 10/06/18 Range/Units 07:15 POC Glucose (mg/dL) 123 H (75-99) mg/dL Microbiology - Last 24 Hours (Table) 10/04/18 11:10 Blood Culture - Preliminary Blood No Growth after 24 hours Assessment and Plan Assessment: Assessment and Plan Plan: 1 acute respiratory failure: Secondary to COPD exacerbation along with severe bronchitis, will continue patient on O2, updraft treatment, Pulmicort and Solu- Medrol decreased to 40 mg every [address] Damari smith. 2 COPD exacerbation Consult pulmonary continue patient on Solu-Medrol Pulmicort and mixup with graft. 3 severe bronchitis: No sign of consolidation might be early pneumonitis in the right lower lobe will continue patient on Zithromax patient is ALLERGIC to Rocephin if needed can use Vanco her doxycycline in addition to it. 4 chronic history of smoking: Patient be on nicotine patch 14 mg daily. 5 tachycardia: Mostly secondary to but agonist with her updraft treatment continue to watch patient on heart monitor if continued to be symptomatic might use smaller dose of calcium channel jo ann. 6 GI prophylaxis: Patient will be on Pepcid 20 mg daily. 7 DVT prophylaxis: Patient will be on heparin 5000 units subcutaneous twice a day. 8. She is stable to be discharged home today.
--- NOTE | 2018-10-06 12:17 | P.DS ---
Providers Date of admission: 10/04/18 12:33 Attending physician: Pili Ramos Consults: 10/04/18 19:39 Consult Physician Routine Consulting Provider: Francisco Wetzel Consult Reason/Comments: COPD Excarbation Do you want consulting provider notified?: Yes [facility]: 48-year-old female one of Dr. capone's patient with past medical history of COPD, asthma, DVT thrombosis osteoarthritis and chronic depression is on to have history of kidney stone and chronic smoking who developed to have worsening dyspnea and shortness of breath for the last 3 days become much worse lately and up having inspiratory expiratory wheezes with worsening symptoms in the last 24 hours ended up coming to the emergency department at [facility] where was seen and evaluated was very hypoxic the tip neck tachycardic chest x-ray did not reveal any consultation at the time she was diagnosed with severe bronchitis tachycardia and COPD excessive patient started on Solu-Medrol IV azithromycin along with updraft treatment consult pulmonary and admit patient to the hospital for the above problem. 10/05; patient continues to have shortness of breath. She states she is having some problems with anxiety and increased stress. 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 The water has been turned off to force her son out of the apartment. Social work consult has been requested. Patient is also noticed to be tachycardic and was started on Cardizem last evening. She is on a nicotine patch. Plan to increase Cardizem. Solu-Medrol will be decreased to 40 mg every 8 hours. Patient is followed by Dr. Wetzel. 10/06: Patient is doing a lot better today and she wants to be discharged home today in follow-up with pulmonary as an outpatient. Less short of breath she has no coughing or hemoptysis, she has no abdominal pain, nausea, vomiting or diarrhea she is Valium for few days. Discharge diagnoses: 1.acute respiratory failure: Secondary to COPD exacerbation along with severe bronchitis. 2 COPD exacerbation. 3 severe bronchitis. 4 chronic history of smoking. 5 sinus tachycardia secondary to COPD exacerbation. Patient Condition at Discharge: Fair Plan - Discharge Summary Discharge Rx Participant: No New Discharge Prescriptions: No Action Albuterol Sulfate [Proair Hfa] 2 puff INHALATION RT-Q4H PRN PRN Reason: Dyspnea Budesonide/Formoterol Fumarate [Symbicort 160-4.5 Mcg Inhaler] 2 puff INHALATION RT-BID PRN PRN Reason: Shortness Of Breath Albuterol Nebulized [Ventolin Nebulized] 2.5 mg INHALATION RT-BID PRN PRN Reason: Shortness Of Breath Discharge Medication List Albuterol Sulfate [Proair Hfa] 2 puff INHALATION RT-Q4H PRN 03/11/14 [History] Albuterol Nebulized [Ventolin Nebulized] 2.5 mg INHALATION RT-BID PRN 10/04/18 [ History] Budesonide/Formoterol Fumarate [Symbicort 160-4.5 Mcg Inhaler] 2 puff INHALATION RT-BID PRN 10/04/18 [History] Follow up Appointment(s)/Referral(s): Jerman Darnell MD [Primary Care Provider] - 1-2 days
[2018-10-06 12:19] VITALS: BP 121/67; RESP 20; TEMP 97.1
[2018-10-06 12:22] VITALS: PULSE 98
--- NOTE | 2018-10-06 13:33 | P.PN ---
Subjective Progress Note Date: 10/06/18 Principal diagnosis: Exacerbation of chronic obstructive pulmonary disease A pleasant 48-year-old female patient with known history of COPD coming in for increased dyspnea cough chest that is so wheezing. The patient has long history of smoking and she was smoking up to 2 pack of sedative sitting current she is down to 1 pack of cigarettes a day. She is not taking or using any form of weight and suspected medications regarding her COPD which is mainly relying on albuterol nebulizer on an as-needed basis. She has been smoking and she's been exposed to cold weather and she thinks these were the main triggers for acute COPD exacerbation and the patient came in for increased dyspnea cough and wheeze. Chest x-ray shows no acute abnormalities. The patient was slightly tachycardic and she was in sinus tachycardia that was attributed to the above- mentioned exacerbation. No fever. No chills. No hemoptysis. No pleurisy. No swelling in lower extremities. She has had a previous DVT in the left lower extremity and this was many years back that was treated and currently she is off anticoagulation. No exposure to sick contacts. No chills history. No aspiration. No history of coronary artery disease or congestion heart failure. She is currently on a combination of DuoNeb nebulized she was on the clock and IV Solu Medrol and she states that she is already feeling better. She has oxygen at home that she is on the when necessary basis. She has seen Dr. Harmon many years back, and her last hospital physician for COPD exacerbation was in 2012. The patient is seen today 10/06/2018 in follow-up on the regular medical floor. She is awake and alert in no acute distress. She is sitting up in bed. She is breathing better today as compared to yesterday. No worsening shortness of breath, cough or congestion. She is maintaining good O2 saturations in the 90s on 2 L/m per nasal cannula. She's afebrile. Hemodynamically stable. Blood culture reveals no growth. Because 139. Objective - Vital Signs Vital signs: Vital Signs Temp 97.1 F L 10/06/18 12:18 Pulse 98 10/06/18 12:21 Resp 20 10/06/18 12:18 BP 121/67 10/06/18 12:18 Pulse Ox 94 L 10/06/18 12:18 Intake & Output 1210/06/18 10/06/18 18:59 06:59 18:59 Weight 81.647 kg Other: Voiding Method Toilet Toilet # Voids 1 # Bowel Movements 0 0 - Exam GENERAL EXAM: Alert, active, comfortable in no apparent distress. HEAD: Normocephalic. EYES: Normal reaction of pupils, equal size. NOSE: Clear with pink turbinates. THROAT: No erythema or exudates. NECK: No masses, no JVD. CHEST: No chest wall deformity. LUNGS: Equal air entry with no crackles, wheeze, rhonchi or dullness. Diminished. CVS: S1 and S2 normal with no audible murmur, regular rhythm. ABDOMEN: No hepatosplenomegaly, normal bowel sounds, no guarding or rigidity. SPINE: No scoliosis or deformity SKIN: No rashes CENTRAL NERVOUS SYSTEM: No focal deficits, tone is normal in all 4 extremities. EXTREMITIES: There is no peripheral edema. No clubbing, no cyanosis. Peripheral pulses are intact. - Labs CBC & Chem 7: 10/04/18 11:10 10/04/18 11:10 Labs: Abnormal Lab Results - Last 24 Hours (Table) 10/05/18 10/05/18 10/06/18 Range/Units 16:34 20:45 07:15 POC Glucose (mg/dL) 159 H 211 H 123 H (75-99) mg/dL 10/06/18 Range/Units 11:07 POC Glucose (mg/dL) 139 H (75-99) mg/dL Microbiology - Last 24 Hours (Table) 10/04/18 11:10 Blood Culture - Preliminary Blood No Growth after 48 hours Assessment and Plan Assessment: Impression: 1 acute COPD exacerbation, chest x-ray free of any acute pulmonary infiltrates. Exacerbating factor could've been cold exposure/second exposures 2 chronic hypoxic respiratory failure related to COPD and the patient is O2 dependent on outpatient basis 3 chronic nicotine addiction 4 remote history of a DVT of the left lower extremity back in 2012 5 sinus tachycardia 6chronic osteoarthritis 7 chronic pain involving the back and the neck along with history of degenerative arthritis 8 history of kidney stones Plan 1 The patient was seen and evaluated by Dr. Wetzel. She is stable from the pulmonary standpoint. She could be discharged home on prednisone burst and taper, maintenance inhaler and rescue inhaler. She will follow up with Dr. Harmon in our office and undergo repeat pulmonary function testing to evaluate the severity of his COPD. She is encouraged to call sooner with any recurrence of symptoms or other questions or concerns. She is again educated regarding the importance of complete smoking cessation. NicoDerm patch is in place. I, the cosigning physician, performed a history & physical examination of the patient. Lungs sounds are clear but diminished. Maintaining good O2 saturations in the 90s on 2 L/m per nasal cannula. I discussed the assessment and plan of care with my nurse practitioner, Ольга Barron. I attest to the above note as dictated by her.
[2018-10-07] MEDS ORDERED: predniSONE 20 MG TAB PO SCH (09:00)
--- NOTE | 2018-10-09 09:06 | CDI ---
Documentation Clarification Form Date: 10/09/18 From: Kiersten Escobar Phone: If you have a question regarding this query, please contact Jennifre Garay at [phone] between 8am and 5pm. Admit Date: 10/04/2018 12:33:00 PM Patient Name: Annabella Abel Visit Number: [id number] Discharge Date: 10/06/2018 2:40:00 PM ATTENTION: The Clinical Documentation Specialists (CDI) and [facility] Coding Staff appreciate your assistance in clarifying documentation. Please respond to the clarification below the line at the bottom and electronically sign. The CDI & [facility] Coding staff will review the response and follow-up if needed. Please note: Queries are made part of the Legal Health Record. If you have any questions, please contact the author of this message via ITS. Dr. Marge Ramirez M.D. Severe bronchitis is documented in the H&P, 10/05 progress note and in the discharge summary. History/Risk Factors: Patient was admitted with COPD exacerbation and acute on chronic hypoxic respiratory failure. Patient is also a cigarette smoker. Clinical Indicators: Short of breath and cough. Radiology findings: No acute cardiopulmonary process. Vital Signs: T. 98.6, P. 125, R. 25, BP 168/104 Treatment: PO Zithromax Breathing Treatment: Ventolin, Duoneb inhalation, Symbicort inhaler O2: 3 lpm on admit then down to 2 lpm per nasal cannula. O2 dependent at home. In your professional opinion, can you please clarify the acuity of the severe bronchitis? Acute Chronic Acute on chronic Other, please specify Unable to determine Acute on chronic bronchitis. MTDD
== END 2018-10-06 14:40 | disposition home or self-care (01) | DRG 190 ==
LOC: EC 10:26 → 3NMEDONC 12:33
PROVIDERS: ADMIT Family Medicine; ATTEND Family Medicine
DX: J44.1 Chronic obstructive pulmonary disease with (acute) exacerbation (principal); J96.21 Acute and chronic respiratory failure with hypoxia; F17.210 Nicotine dependence, cigarettes, uncomplicated; F41.9 Anxiety disorder, unspecified; G89.29 Other chronic pain; F32.9 Major depressive disorder, single episode, unspecified; G43.909 Migraine, unspecified, not intractable, without status migrainosus; M47.9 Spondylosis, unspecified; R00.0 Tachycardia, unspecified; Z79.51 Long term (current) use of inhaled steroids; Z88.0 Allergy status to penicillin; Z99.81 Dependence on supplemental oxygen; Z90.721 Acquired absence of ovaries, unilateral; Z87.442 Personal history of urinary calculi; Z86.718 Personal history of other venous thrombosis and embolism; Z71.6 Tobacco abuse counseling; Z82.49 Family history of ischemic heart disease and other diseases of the circulatory system; Z83.3 Family history of diabetes mellitus; J20.9 Acute bronchitis, unspecified; J44.0 Chronic obstructive pulmonary disease with (acute) lower respiratory infection; Z80.9 Family history of malignant neoplasm, unspecified; Z83.511 Family history of glaucoma; Z83.79 Family history of other diseases of the digestive system
CPT/HCPCS: 36415; 71046; 80053; 82550; 82553; 83036; 83735; 83880; 84443; 84484; 85025; 85610; 85730; 87040; 93005; 93306; 94640; 96361; 96374; 96375; 96376; 99285; 99406

== ENCOUNTER 2018-10-07 02:56 | Inpatient (IN) | payer MEDICARE, OTHER ==
[2018-10-07] MEDS ORDERED: SODIUM CHLORIDE 0.9% 500 ML 500 ML IV STA (03:29)
[2018-10-07] MEDS ORDERED: methylPREDNISolone SOD SUCCI 125 MG/2 ML VIAL IV STA (03:29)
[2018-10-07] MEDS ORDERED: ALBUTEROL NEBULIZED 2.5 MG/3 ML INHALATION STA ×2 (03:29→04:48)
[2018-10-07] MEDS ORDERED: IPRATROPIUM 0.5 MG/2.5 ML NEBU INHALATION STA (03:29)
[2018-10-07 03:41] LABS: Anisocytosis Slight; Basophils % (A) 0 %; Eosinophils % (A) 0 %; HCT 37.4 % (34.0-46.0); HGB 11.9 gm/dL (11.4-16.0); Hypochromasia Slight; Lymphocytes # (A) 1.7 k/uL (1.0-4.8); Lymphocytes % (A) 11 %; MCH 26.2 pg (25.0-35.0); MCHC 31.8 g/dL (31.0-37.0); MCV 82.4 fL (80.0-100.0); Mean Platelet Volume 6.5; Microcytosis Slight; Monocytes # (A) 0.9 k/uL (0-1.0); Monocytes % (A) 5 %; Neutrophils # (A) 13.4 k/uL (1.3-7.7); Neutrophils % (A) 83 %; Platelet Count 364 k/uL (150-450); RBC 4.54 m/uL (3.80-5.40); RDW 18.3 % (11.5-15.5); WBC 16.2 k/uL (3.8-10.6)
[2018-10-07 03:50] LABS: ALT 23 U/L (9-52); AST 17 U/L (14-36); Albumin 3.8 g/dL (3.5-5.0); Alkaline Phosphatase 73 U/L (38-126); Anion Gap 8 mmol/L; Blood Urea Nitrogen 16 mg/dL (7-17); Calcium 9.6 mg/dL (8.4-10.2); Carbon Dioxide 28 mmol/L (22-30); Chloride 107 mmol/L (98-107); Glucose 111 mg/dL (74-99); Magnesium 2.2 mg/dL (1.6-2.3); Potassium 4.3 mmol/L (3.5-5.1); Sodium 143 mmol/L (137-145); Total Bilirubin 0.2 mg/dL (0.2-1.3); Total Protein 6.8 g/dL (6.3-8.2)
[2018-10-07 03:53] LABS: Creatine Kinase 67 U/L (30-135)
[2018-10-07 03:55] LABS: INR 0.9 (<1.2); Prothrombin Time 10.1 sec (9.0-12.0)
[2018-10-07 04:06] LABS: Creatine Kinase MB 1.2 ng/mL (0.0-2.4); Troponin I <0.012 ng/mL (0.000-0.034)
--- NOTE | 2018-10-07 04:12 | XR ---
EXAMINATION TYPE: XR chest 2V DATE OF EXAM: 10/07/2018 COMPARISON: 10/04/2018 HISTORY: COPD TECHNIQUE: Frontal and lateral views of the chest are obtained. FINDINGS: Heart and mediastinum are normal. Lungs are clear. Diaphragm is normal. Bony thorax appear s normal. IMPRESSION: Normal chest.
--- NOTE | 2018-10-07 04:30 | ED ---
General Adult HPI - General Chief complaint: Shortness of Breath Stated complaint: SOB Time Seen by Provider: 10/07/18 03:28 Source: patient, RN notes reviewed, old records reviewed Mode of arrival: wheelchair Limitations: no limitations - History of Present Illness Initial comments: 48-year-old female with history of COPD on home oxygen presents with cough and dyspnea. Patient was admitted to the hospital COPD exacerbation over the past 3 days. She was discharged today. Patient states her symptoms have not improved. Cough is productive of white yellow sputum. No central radiating chest pain. She does have some mild pain with cough. No abdominal pain nausea vomiting. No fever. No lower extremity pain or swelling. Patient states she has not smoked in the past 4 days. - Related Data Previous Rx's Medication Instructions Recorded ALPRAZolam [Xanax] 0.25 mg PO TID PRN #9 tab 10/06/18 Albuterol Sulfate [Proair Hfa] 2 puff INHALATION RT-Q4H PRN #1 10/06/18 hfa.aer.ad Azithromycin [Zithromax] 500 mg PO DAILY #7 tab 10/06/18 Budesonide/Formoterol Fumarate 2 puff INHALATION RT-BID PRN #1 10/06/18 [Symbicort 160-4.5 Mcg Inhaler] hfa.aer.ad Diltiazem Oral [Cardizem*] 60 mg PO TID #90 tab 10/06/18 Ipratropium-Albuterol Nebulize 3 ml INHALATION RT-QID #120 10/06/18 [Duoneb 0.5 mg-3 mg/3 ml Soln] ampul.neb Nicotine 14Mg/24Hr Patch [Habitrol] 1 patch TRANSDERM DAILY #30 patch 10/06/18 predniSONE 40 mg PO DAILY #14 tab 10/06/18 Allergies Allergy/AdvReac Type Severity Reaction Status Date / Time Penicillins Allergy Unknown Verified 10/07/18 03:02 Childhood Review of Systems ROS Statement: Those systems with pertinent positive or pertinent negative responses have been documented in the HPI. ROS Other: All systems not noted in ROS Statement are negative. Past Medical History Past Medical History: Asthma, COPD, Deep Vein Thrombosis (DVT), Osteoarthritis ( OA) Additional Past Medical History / Comment(s): Bronchitis, chronic pain-back and cervical, migraines, DJD, DVT L leg in 2013, kidney stones. History of Any Multi-Drug Resistant Organisms: None Reported Past Surgical History: Orthopedic Surgery Additional Past Surgical History / Comment(s): right knee arthroscopic, R oophorectomy d/t cyst, bilateral cervical facet blocks. Past Anesthesia/Blood Transfusion Reactions: No Reported Reaction Past Psychological History: Anxiety, Depression Smoking Status: Current every day smoker - Past Family History Mother Family Medical History: No Reported History Additional Family Medical History / Comment(s): Diverticulitis Father Family Medical History: Cancer, Congestive Heart Failure (CHF), Diabetes Mellitus, Eye Disorder, Hypertension Additional Family Medical History / Comment(s): Father was exposed to agent orange. He at the age of 46 from diabetic complications. General Exam Limitations: no limitations General appearance: alert, in no apparent distress Head exam: Present: atraumatic, normocephalic Eye exam: Present: normal appearance, PERRL ENT exam: Present: normal exam Neck exam: Present: normal inspection. Absent: tenderness, meningismus Respiratory exam: Present: respiratory distress (mild), wheezes, decreased breath sounds Cardiovascular Exam: Present: regular rate, normal rhythm GI/Abdominal exam: Present: soft. Absent: distended, tenderness Extremities exam: Present: normal inspection, normal capillary refill. Absent: pedal edema Back exam: Present: normal inspection, full ROM. Absent: tenderness Neurological exam: Present: alert, oriented X3, CN II-XII intact. Absent: motor sensory deficit Psychiatric exam: Present: normal affect, normal mood Skin exam: Present: warm, dry, intact. Absent: cyanosis, diaphoretic Course Vital Signs 10/07/18 10/07/18 10/07/18 02:58 03:27 03:32 Temperature 98.2 F Pulse Rate 117 H 95 Respiratory 24 18 Rate Blood Pressure 176/98 O2 Sat by Pulse 91 L Oximetry 10/07/18 10/07/18 10/07/18 03:50 04:24 05:00 Temperature Pulse Rate 104 H 95 100 Respiratory 16 Rate Blood Pressure 144/77 O2 Sat by Pulse 93 L Oximetry 10/07/18 05:18 Temperature Pulse Rate 108 H Respiratory Rate Blood Pressure O2 Sat by Pulse Oximetry Medical Decision Making - Medical Decision Making 48-year-old female with COPD presenting with cough and dyspnea. Patient's in no respiratory distress with decreased air entry and wheezing on pulmonary auscultation. Patient is given a total 10 of albuterol and one of Atrovent and Solu-Medrol in the emergency department with only minimal improvement. She will be admitted for continued treatment for COPD exacerbation. - Lab Data Result diagrams: 10/07/18 03:15 10/07/18 03:15 Lab Results 10/07/18 10/07/18 10/07/18 Range/Units 03:15 03:15 03:15 WBC 16.2 H (3.8-10.6) k/uL RBC 4.54 (3.80-5.40) m/uL Hgb 11.9 (11.4-16.0) gm/dL Hct 37.4 (34.0-46.0) % MCV 82.4 (80.0-100.0) fL MCH 26.2 (25.0-35.0) pg MCHC 31.8 (31.0-37.0) g/dL RDW 18.3 H (11.5-15.5) % Plt Count 364 (150-450) k/uL Neutrophils % 83 % Lymphocytes % 11 % Monocytes % 5 % Eosinophils % 0 % Basophils % 0 % Neutrophils # 13.4 H (1.3-7.7) k/uL Lymphocytes # 1.7 (1.0-4.8) k/uL Monocytes # 0.9 (0-1.0) k/uL Eosinophils # 0.0 (0-0.7) k/uL Basophils # 0.0 (0-0.2) k/uL Hypochromasia Slight Anisocytosis Slight Microcytosis Slight PT (9.0-12.0) sec INR (<1.2) APTT (22.0-30.0) sec Sodium 143 (137-145) mmol/L Potassium 4.3 (3.5-5.1) mmol/L Chloride 107 (98-107) mmol/L Carbon Dioxide 28 (22-30) mmol/L Anion Gap 8 mmol/L BUN 16 (7-17) mg/dL Creatinine 0.79 (0.52-1.04) mg/dL Est GFR (CKD-EPI)AfAm >90 (>60 ml/min/1.73 sqM) Est GFR (CKD-EPI)NonAf 88 (>60 ml/min/1.73 sqM) Glucose 111 H (74-99) mg/dL Calcium 9.6 (8.4-10.2) mg/dL Magnesium 2.2 (1.6-2.3) mg/dL Total Bilirubin 0.2 (0.2-1.3) mg/dL AST 17 (14-36) U/L ALT 23 (9-52) U/L Alkaline Phosphatase 73 (38-126) U/L Total Creatine Kinase 67 (30-135) U/L CK-MB (CK-2) 1.2 (0.0-2.4) ng/mL CK-MB (CK-2) Rel Index 1.8 Troponin I <0.012 (0.000-0.034) ng/mL Total Protein 6.8 (6.3-8.2) g/dL Albumin 3.8 (3.5-5.0) g/dL 10/07/18 Range/Units 03:15 WBC (3.8-10.6) k/uL RBC (3.80-5.40) m/uL Hgb (11.4-16.0) gm/dL Hct (34.0-46.0) % MCV (80.0-100.0) fL MCH (25.0-35.0) pg MCHC (31.0-37.0) g/dL RDW (11.5-15.5) % Plt Count (150-450) k/uL Neutrophils % % Lymphocytes % % Monocytes % % Eosinophils % % Basophils % % Neutrophils # (1.3-7.7) k/uL Lymphocytes # (1.0-4.8) k/uL Monocytes # (0-1.0) k/uL Eosinophils # (0-0.7) k/uL Basophils # (0-0.2) k/uL Hypochromasia Anisocytosis Microcytosis PT 10.1 (9.0-12.0) sec INR 0.9 (<1.2) APTT 21.0 L (22.0-30.0) sec Sodium (137-145) mmol/L Potassium (3.5-5.1) mmol/L Chloride (98-107) mmol/L Carbon Dioxide (22-30) mmol/L Anion Gap mmol/L BUN (7-17) mg/dL Creatinine (0.52-1.04) mg/dL Est GFR (CKD-EPI)AfAm (>60 ml/min/1.73 sqM) Est GFR (CKD-EPI)NonAf (>60 ml/min/1.73 sqM) Glucose (74-99) mg/dL Calcium (8.4-10.2) mg/dL Magnesium (1.6-2.3) mg/dL Total Bilirubin (0.2-1.3) mg/dL AST (14-36) U/L ALT (9-52) U/L Alkaline Phosphatase (38-126) U/L Total Creatine Kinase (30-135) U/L CK-MB (CK-2) (0.0-2.4) ng/mL CK-MB (CK-2) Rel Index Troponin I (0.000-0.034) ng/mL Total Protein (6.3-8.2) g/dL Albumin (3.5-5.0) g/dL Critical Care Time Critical Care Time: Yes Total Critical Care Time: 35 Disposition Clinical Impression: Acute exacerbation of chronic obstructive pulmonary disease (COPD) Disposition: ADMITTED IP TO THIS [facility] Condition: Stable Is patient prescribed a controlled substance at d/c from ED?: No Referrals: Jerman Darnell MD [Primary Care Provider] - 1-2 days Decision to Admit Reason: Admit from EC Decision Date: 10/07/18 Decision Time: 05:39
[2018-10-07] MEDS ORDERED: IPRATROPIUM-ALBUTEROL 3 ML NEB INHALATION PRN (05:35)
[2018-10-07] MEDS ORDERED: ALBUTEROL NEBULIZED 2.5 MG/3 ML INHALATION PRN (05:35)
[2018-10-07] MEDS: MAGNESIUM SULFATE-D5W PMX 1 GM in DEXTROSE/WATER 1 100ML.BAG IVPB SCH ×2 (06:03→07:24)
[2018-10-07 06:25] VITALS: BMI 32.9
[2018-10-07 07:20] LABS: Glucose,Whole Blood 139 mg/dL (75-99)
[2018-10-07] MEDS: AZITHROMYCIN 500 MG TAB PO SCH (07:24)
[2018-10-07] MEDS: NICOTINE 14MG/24HR PATCH TRANSDERM SCH (10:30)
[2018-10-07] MEDS: ALPRAZolam 0.25 MG TAB PO PRN ×2 (10:30→20:07)
[2018-10-07] MEDS: PANTOPRAZOLE 40 MG TABLET PO SCH (10:30)
[2018-10-07] MEDS: HEPARIN SODIUM,PORCINE 5,000 UNIT/ML 1 ML VIAL SQ SCH ×2 (10:31→14:59)
[2018-10-07 11:17] LABS: Glucose,Whole Blood 125 mg/dL (75-99)
[2018-10-07] MEDS: IPRATROPIUM-ALBUTEROL 3 ML NEB INHALATION SCH ×4 (11:56→20:40)
[2018-10-07] MEDS: BUDESONIDE 1 MG/2 ML NEBU INHALATION SCH ×2 (11:56→20:40)
[2018-10-07] MEDS: methylPREDNISolone SOD SUCCI 125 MG/2 ML VIAL IV SCH ×2 (13:21→16:53)
[2018-10-07 16:30] LABS: Glucose,Whole Blood 182 mg/dL (75-99)
[2018-10-07] MEDS: ACETAMINOPHEN TAB 325 MG TAB PO PRN (16:50)
[2018-10-07 20:26] LABS: Glucose,Whole Blood 252 mg/dL (75-99)
[2018-10-07] MEDS: traMADol 50 MG TAB PO PRN (21:18)
--- NOTE | 2018-10-07 23:12 | P.HPIM ---
History of Present Illness H&P Date: 10/07/18 Chief Complaint: COPD exacerbation. 48-year-old female one of Dr. capone's patient with past medical history of COPD, asthma, DVT thrombosis osteoarthritis and chronic depression is on to have history of kidney stone and chronic smoking who developed to have worsening dyspnea and shortness of breath and was admitted to the hospital on for acute exacerbation of COPD with acute bronchitis she was seen in consultation by pulmonary medicine, I came to see the patient yesterday and she was feeling better she stated that she wanted to be discharged home and follow- up as an outpatient with her manager knowledge, patient was on Solu-Medrol 40 mg IV push every 8 hours, she was getting nebulized treatment [id number], I sent a prescription to her pharmacy and the patient ended up going home in the afternoon however she ended up coming back to the ER in the morning with significant shortness breath associated with increased coughing with expiratory wheezes, she did not respond to [id number] nipple last treatment so she was admitted to the hospital with recurrent COPD exacerbation and the pulmonary consultation was obtained from Dr. Wetzel. Review of Systems Constitutional: Denies anorexia, Denies chronic headaches, Denies lethargy, Denies weight gain Eyes: denies blurred vision, denies bulging eye, denies decreased vision Ears: deny: decreased hearing Ears, nose, mouth and throat: Denies dysphagia, Denies neck lump, Denies sore throat Cardiovascular: Reports decreased exercise tolerance, Reports dyspnea on exertion, Reports rapid heart beat, Reports shortness of breath, Denies chest pain, Denies syncope Respiratory: Reports congestion, Reports cough, Reports cough with sputum, Reports home oxygen, Reports wheezing, Denies snoring Gastrointestinal: Denies abdominal pain, Denies bloating, Denies BRBPR, Denies heartburn, Denies loss of appetite, Denies melena, Denies nausea, Denies vomiting Genitourinary: Denies dysuria Musculoskeletal: Denies myalgias Musculoskeletal: absent: ankle pain, ankle stiffness, ankle swelling, elbow pain , elbow stiffness, elbow swelling, foot pain, foot stiffness, foot swelling, hand pain, hand stiffness, hand swelling, hip pain, hip stiffness, hip swelling , knee pain, knee stiffness, knee swelling, shoulder pain, shoulder stiffness, shoulder swelling, wrist pain, wrist stiffness, wrist swelling Integumentary: Denies pruritus, Denies rash Neurological: Denies numbness, Denies weakness Psychiatric: Reports anxiety, Reports depression, Denies suicidal ideation Endocrine: Denies fatigue, Denies weight change Past Medical History Past Medical History: Asthma, COPD, Deep Vein Thrombosis (DVT), Osteoarthritis ( OA) Additional Past Medical History / Comment(s): Bronchitis, chronic pain-back and cervical, migraines, DJD, DVT L leg in 2013, kidney stones. History of Any Multi-Drug Resistant Organisms: None Reported Past Surgical History: Orthopedic Surgery Additional Past Surgical History / Comment(s): right knee arthroscopic, R oophorectomy d/t cyst, bilateral cervical facet blocks. Past Anesthesia/Blood Transfusion Reactions: No Reported Reaction Past Psychological History: Anxiety, Depression Additional Psychological History / Comment(s): Pt resides alone. She has a nebulizer and oxygen that she uses prn. She does not own a car. She gets to [facility] by her mother or sister driving her. Smoking Status: Current every day smoker Past Alcohol Use History: Rare Additional Past Alcohol Use History / Comment(s): STARTED SMOKING AT AGE 15- SMOKES 1/2PPD Past Drug Use History: None Reported - Past Family History Mother Family Medical History: No Reported History Additional Family Medical History / Comment(s): Diverticulitis Father Family Medical History: Cancer, Congestive Heart Failure (CHF), Diabetes Mellitus, Eye Disorder, Hypertension Additional Family Medical History / Comment(s): Father was exposed to agent orange. He at the age of 46 from diabetic complications. Medications and Allergies Home Medications Medication Instructions Recorded Confirmed Type ALPRAZolam [Xanax] 0.25 mg PO TID PRN #9 tab 10/06/18 Rx Albuterol Sulfate [Proair Hfa] 2 puff INHALATION RT-Q4H PRN #1 10/06/18 Rx hfa.aer.ad Azithromycin [Zithromax] 500 mg PO DAILY #7 tab 10/06/18 Rx Budesonide/Formoterol Fumarate 2 puff INHALATION RT-BID PRN #1 10/06/18 Rx [Symbicort 160-4.5 Mcg Inhaler] hfa.aer.ad Diltiazem Oral [Cardizem*] 60 mg PO TID #90 tab 10/06/18 Rx Ipratropium-Albuterol Nebulize 3 ml INHALATION RT-QID #120 10/06/18 Rx [Duoneb 0.5 mg-3 mg/3 ml Soln] ampul.neb Nicotine 14Mg/24Hr Patch [Habitrol] 1 patch TRANSDERM DAILY #30 patch 10/06/18 Rx predniSONE 40 mg PO DAILY #14 tab 10/06/18 Rx Allergies Allergy/AdvReac Type Severity Reaction Status Date / Time Penicillins Allergy Unknown Verified 10/07/18 03:02 Childhood Physical Exam Vitals: Vital Signs Temp Pulse Pulse Resp BP BP Pulse Ox 10/07/18 06:33 97.7 F 91 22 162/95 94 L 10/07/18 05:52 98.2 F 110 H 16 153/98 94 L 10/07/18 05:18 108 H 10/07/18 05:00 100 10/07/18 04:24 95 16 144/77 93 L 10/07/18 03:50 104 H 10/07/18 03:32 95 10/07/18 03:27 18 10/07/18 02:58 98.2 F 117 H 24 176/98 91 L Intake and Output 10/06/18 10/07/18 10/07/18 22:59 06:59 14:59 Other: Weight 81.647 kg - Constitutional General appearance: average body habitus, mild distress - EENT Eyes: anicteric sclerae, EOMI, PERRLA, no ptosis ENT: hearing grossly normal, NA/AT, normal oropharynx, no thrush Ears: bilateral: normal - Neck Neck: no lymphadenopathy, normal ROM, no rigidity, no stridor, no thyromegaly Carotids: bilateral: upstroke normal - Respiratory Respiratory: bilateral: diminished, rhonchi, wheezing, prolonged expiration, negative: dullness, rales - Cardiovascular Rhythm: regular Heart sounds: normal: S1, S2 Abnormal Heart Sounds: systolic murmur - Gastrointestinal General gastrointestinal: normal bowel sounds, soft, no splenomegaly, no tenderness, no umbilical hernia, no ventral hernia - Integumentary Integumentary: normal, normal turgor - Neurologic Neurologic: CNII-XII intact - Musculoskeletal Musculoskeletal: strength equal bilaterally - Psychiatric Psychiatric: A&O x's 3, appropriate affect, intact judgment & insight Results CBC & Chem 7: 10/07/18 03:15 10/07/18 03:15 Labs: Abnormal Lab Results - Last 24 Hours (Table) 10/07/18 10/07/18 10/07/18 Range/Units 03:15 03:15 03:15 WBC 16.2 H (3.8-10.6) k/uL RDW 18.3 H (11.5-15.5) % Neutrophils # 13.4 H (1.3-7.7) k/uL APTT 21.0 L (22.0-30.0) sec Glucose 111 H (74-99) mg/dL POC Glucose (mg/dL) (75-99) mg/dL 10/07/18 Range/Units 07:18 WBC (3.8-10.6) k/uL RDW (11.5-15.5) % Neutrophils # (1.3-7.7) k/uL APTT (22.0-30.0) sec Glucose (74-99) mg/dL POC Glucose (mg/dL) 139 H (75-99) mg/dL Thrombosis Risk Factor Assmnt - DVT/VTE Prophylaxis DVT/VTE Prophylaxis: Pharmacologic Prophylaxis ordered, Mechanical Prophylaxis ordered - Choose All That Apply Any of the Below Risk Factors Present?: Yes Each Factor Represents 1 point: Abnormal pulmonary function (COPD), Age 41-60 years, Obesity (BMI >25) Other Risk Factors: No Other congenital or acquired thrombophilia - If yes, enter type in comment: No Thrombosis Risk Factor Assessment Total Risk Factor Score: 3 Thrombosis Risk Factor Assessment Level: Moderate Risk Assessment and Plan Assessment: Assessment and plan: 1. Acute respiratory failure secondary to acute exacerbation of COPD with acute bronchitis. Continue patient on Solu-Medrol 60 mg IV push every 6 hours around the clock, continue nebulized treatment in the form of DuoNeb 3 mg position 4 times every day, Pulmicort 1 mg position twice every day, continue Zithromax 500 mg orally once every day, pulmonary consultation, oxygen at 2 L nasal cannula. 2. Sinus tachycardia. Likely related to acute exacerbation of COPD. Continue Cardizem 60 mg orally 3 times every day. 3. Chronic tobacco use and dependence. Patient will be placed on nicotine patch 14 mg once every day. Smoking cessation and counseling an increased risk of CAD, CVA, and malignancy. 4. History of DVT. Continue with DVT prophylaxis. 5. Anxiety disorder. Continue Xanax as needed. 6. DVT prophylaxis. Continue patient on heparin 5000 units subcutaneously every 8 hours. 7. GI prophylaxis. Continue Protonix 40 mg orally once every day. 8. Admit to inpatient. Estimate a length of stay 2 midnights but 9. Patient is full code.
[2018-10-08] MEDS: methylPREDNISolone SOD SUCCI 125 MG/2 ML VIAL IV SCH ×5 (00:02→23:23)
[2018-10-08] MEDS: ACETAMINOPHEN TAB 325 MG TAB PO PRN ×2 (00:03→20:56)
[2018-10-08] MEDS: ALPRAZolam 0.25 MG TAB PO PRN ×2 (05:43→20:56)
[2018-10-08] MEDS: BUDESONIDE 1 MG/2 ML NEBU INHALATION SCH ×2 (07:25→20:54)
[2018-10-08] MEDS: IPRATROPIUM-ALBUTEROL 3 ML NEB INHALATION SCH ×4 (07:26→20:54)
[2018-10-08 07:41] LABS: Anisocytosis Slight; Basophils % (A) 0 %; Eosinophils % (A) 0 %; HCT 35.3 % (34.0-46.0); HGB 10.8 gm/dL (11.4-16.0); Hypochromasia Moderate; Lymphocytes % (A) 11 %; MCH 25.5 pg (25.0-35.0); MCHC 30.5 g/dL (31.0-37.0); MCV 83.8 fL (80.0-100.0); Mean Platelet Volume 6.6; Monocytes # (A) 0.3 k/uL (0-1.0); Monocytes % (A) 3 %; Neutrophils # (A) 7.5 k/uL (1.3-7.7); Neutrophils % (A) 85 %; Platelet Count 303 k/uL (150-450); RBC 4.21 m/uL (3.80-5.40); RDW 17.9 % (11.5-15.5); WBC 8.8 k/uL (3.8-10.6)
[2018-10-08 07:48] LABS: ALT 26 U/L (9-52); AST 17 U/L (14-36); Albumin 3.7 g/dL (3.5-5.0); Alkaline Phosphatase 64 U/L (38-126); Anion Gap 6 mmol/L; Blood Urea Nitrogen 15 mg/dL (7-17); Calcium 9.1 mg/dL (8.4-10.2); Carbon Dioxide 29 mmol/L (22-30); Chloride 102 mmol/L (98-107); Glucose 115 mg/dL (74-99); Magnesium 2.4 mg/dL (1.6-2.3); Potassium 5.3 mmol/L (3.5-5.1); Sodium 137 mmol/L (137-145); Total Bilirubin 0.2 mg/dL (0.2-1.3); Total Protein 6.2 g/dL (6.3-8.2)
[2018-10-08] MEDS: NICOTINE 14MG/24HR PATCH TRANSDERM SCH (08:27)
[2018-10-08] MEDS: PANTOPRAZOLE 40 MG TABLET PO SCH (08:27)
[2018-10-08] MEDS: HEPARIN SODIUM,PORCINE 5,000 UNIT/ML 1 ML VIAL SQ SCH ×4 (08:27→23:23)
[2018-10-08] MEDS: AZITHROMYCIN 500 MG TAB PO SCH (08:27)
[2018-10-08] MEDS ORDERED: guaiFENesin 600 MG TABLET.ER PO SCH (09:00)
[2018-10-08] MEDS: traMADol 50 MG TAB PO PRN (12:56)
--- NOTE | 2018-10-08 13:40 | P.PN ---
Subjective Progress Note Date: 10/08/18 48-year-old female one of Dr. capone's patient with past medical history of COPD, asthma, DVT thrombosis osteoarthritis and chronic depression is on to have history of kidney stone and chronic smoking who developed to have worsening dyspnea and shortness of breath and was admitted to the hospital on for acute exacerbation of COPD with acute bronchitis she was seen in consultation by pulmonary medicine, I came to see the patient yesterday and she was feeling better she stated that she wanted to be discharged home and follow- up as an outpatient with her petrophysical engineer, patient was on Solu-Medrol 40 mg IV push every 8 hours, she was getting nebulized treatment [id number], I sent a prescription to her pharmacy and the patient ended up going home in the afternoon however she ended up coming back to the ER in the morning with significant shortness breath associated with increased coughing with expiratory wheezes, she did not respond to [id number] nipple last treatment so she was admitted to the hospital with recurrent COPD exacerbation and the pulmonary consultation was obtained from Dr. Wetzel. 10/08: Patient continues to have wheezing and tightness is only slightly improved from yesterday. We will continue Solu-Medrol at 60 mg every 6 hours without change. She is on Pulmicort 1 mg twice daily and DuoNeb treatments. Antibiotics are Zithromax. She remains afebrile, pulse ox is 92% on 2 L. Pulmonary medicine is following. Review of Systems Constitutional: Denies anorexia, Denies chronic headaches, Denies weight gain Eyes: denies blurred vision, denies bulging eye, denies decreased vision Ears: deny: decreased hearing Ears, nose, mouth and throat: Denies dysphagia, Denies neck lump, Denies sore throat Cardiovascular: Reports decreased exercise tolerance, Reports dyspnea on exertion, Reports rapid heart beat, Reports shortness of breath, Denies chest pain, Denies syncope Respiratory: Reports congestion, Reports cough, Reports cough with sputum, Reports home oxygen, Reports wheezing, Denies snoring Gastrointestinal: Denies abdominal pain, Denies bloating, Denies BRBPR, Denies heartburn, Denies loss of appetite, Denies melena, Denies nausea, Denies vomiting Genitourinary: Denies dysuria Musculoskeletal: Denies myalgias Musculoskeletal: absent: ankle pain, ankle stiffness, ankle swelling, elbow pain , elbow stiffness, elbow swelling, foot pain, foot stiffness, foot swelling, hand pain, hand stiffness, hand swelling, hip pain, hip stiffness, hip swelling , knee pain, knee stiffness, knee swelling, shoulder pain, shoulder stiffness, shoulder swelling, wrist pain, wrist stiffness, wrist swelling Integumentary: Denies pruritus, Denies rash Neurological: Denies numbness, Denies weakness Psychiatric: Reports anxiety, Reports depression, Denies suicidal ideation Endocrine: Denies fatigue, Denies weight change Objective - Vital Signs Vital signs: Vital Signs Temp 97.6 F 10/08/18 05:00 Pulse 92 10/08/18 11:17 Resp 19 10/08/18 05:00 BP 147/71 10/08/18 05:00 Pulse Ox 95 10/08/18 05:00 Intake & Output 10/07/18 10/08/18 10/08/18 18:59 06:59 18:59 Intake Total 500 1860 Balance 500 1860 Weight 81.647 kg Intake: Intake, IV Titration 100 80 Amount Magnesium Sulfate-D5w Pmx 100 1 gm In Dextrose/Water 1 100ml.bag @ 100 mls/hr IVPB Q1H JOSE Rx#: [id number] Sodium Chloride 0.9% 500 80 ml 500 ml @ 999 mls/hr IV .Q31M STA Rx#:[id number] Oral 400 1780 Other: # Voids 2 2 - Exam General appearance: average body habitus, no distress while at rest - EENT Eyes: anicteric sclerae, EOMI, PERRLA, no ptosis ENT: hearing grossly normal, NA/AT, normal oropharynx, no thrush Ears: bilateral: normal - Neck Neck: no lymphadenopathy, normal ROM, no rigidity, no stridor, no thyromegaly Carotids: bilateral: upstroke normal - Respiratory Respiratory: bilateral: diminished, rhonchi, wheezing, prolonged expiration, negative: dullness, rales - Cardiovascular Rhythm: regular Heart sounds: normal: S1, S2 Abnormal Heart Sounds: systolic murmur - Gastrointestinal General gastrointestinal: normal bowel sounds, soft, no splenomegaly, no tenderness, no umbilical hernia, no ventral hernia - Integumentary Integumentary: normal, normal turgor - Neurologic Neurologic: CNII-XII intact - Musculoskeletal Musculoskeletal: strength equal bilaterally - Psychiatric Psychiatric: A&O x's 3, appropriate affect, intact judgment & insight - Labs CBC & Chem 7: 10/08/18 07:12 10/08/18 07:12 Labs: Abnormal Lab Results - Last 24 Hours (Table) 10/07/18 10/07/18 10/08/18 Range/Units 16:28 20:18 07:12 Hgb 10.8 L (11.4-16.0) gm/dL MCHC 30.5 L (31.0-37.0) g/dL RDW 17.9 H (11.5-15.5) % Potassium (3.5-5.1) mmol/L Glucose (74-99) mg/dL POC Glucose (mg/dL) 182 H 252 H (75-99) mg/dL Magnesium (1.6-2.3) mg/dL Total Protein (6.3-8.2) g/dL 10/08/18 Range/Units 07:12 Hgb (11.4-16.0) gm/dL MCHC (31.0-37.0) g/dL RDW (11.5-15.5) % Potassium 5.3 H (3.5-5.1) mmol/L Glucose 115 H (74-99) mg/dL POC Glucose (mg/dL) (75-99) mg/dL Magnesium 2.4 H (1.6-2.3) mg/dL Total Protein 6.2 L (6.3-8.2) g/dL Microbiology - Last 24 Hours (Table) 10/07/18 04:25 Blood Culture - Preliminary Blood No Growth after 24 hours Assessment and Plan Plan: 1. Acute hypoxic respiratory failure secondary to acute exacerbation of COPD with acute bronchitis. Continue patient on Solu-Medrol 60 mg IV push every 6 hours around the clock, continue nebulized treatment in the form of DuoNeb 3 mg position 4 times every day, Pulmicort 1 mg position twice every day, continue Zithromax 500 mg orally once every day, pulmonary consultation, oxygen at 2 L nasal cannula. Consult with Dr. Chew. 2. Sinus tachycardia. Likely related to acute exacerbation of COPD. Continue Cardizem 60 mg orally 3 times every day. 3. Chronic tobacco use and dependence. Patient will be placed on nicotine patch 14 mg once every day. Smoking cessation and counseling an increased risk of CAD, CVA, and malignancy. 4. History of DVT. Continue with DVT prophylaxis. 5. Anxiety disorder. Continue Xanax as needed. 6. DVT prophylaxis. Continue patient on heparin 5000 units subcutaneously every 8 hours. 7. GI prophylaxis. Continue Protonix 40 mg orally once every day. 8. Patient is full code. Discharge plan: Return home Impression and plan of care have been directed as dictated by the signing physician. Kathryn Guevara nurse practitioner acting as scribe for signing physician.
--- NOTE | 2018-10-08 14:15 | P.CNPUL ---
History of Present Illness Consult date: 10/08/18 Reason for consult: dyspnea, cough, COPD Chief complaint: Acute exacerbation of COPD History of present illness: This is a 48-year-old female patient of Dr. Conti, who was discharged home on 10/06/2018 after being hospitalized for acute exacerbation of COPD. Patient states she had recently moved and her nebulizer machine along with her medications were lost in the move, and she was unable to make it to pharmacy before the closed for her medications. In the evening she became increasingly more short of breath, she is a current smoker, and patient resumed smoking when she returned home. Patient states she was going outside to smoke and she thinks that the cold weather along with smoking may have exacerbated her symptoms. Chest x-ray did not show any acute cardiopulmonary disease. Patient denied any fever or chills, initial lab work showed WBC of 16.2, hemoglobin of 11.9, electrolytes and renal profile were unremarkable. LFTs were normal, troponin was negative. Follow blood work today showed WBC within normal limits at 8.8, hemoglobin is 10.8, potassium is 5.3, the rest of the BMP was normal. Patient was started on IV steroids, nebulized bronchodilators, Zithromax, and on today's exam she is breathing easier, although still mildly bronchospastic. Review of Systems All systems: negative Constitutional: Denies chills, Denies fever Eyes: denies blurred vision, denies pain Ears, nose, mouth and throat: Denies headache, Denies sore throat Cardiovascular: Denies chest pain, Denies shortness of breath Respiratory: Reports dyspnea, Reports home oxygen, Denies cough Gastrointestinal: Denies abdominal pain, Denies diarrhea, Denies nausea, Denies vomiting Genitourinary: Denies dysuria, Denies hematuria Musculoskeletal: Denies myalgias Integumentary: Denies pruritus, Denies rash Neurological: Denies numbness, Denies weakness Psychiatric: Denies anxiety, Denies depression Endocrine: Denies fatigue, Denies weight change Past Medical History Past Medical History: Asthma, COPD, Deep Vein Thrombosis (DVT), Osteoarthritis ( OA) Additional Past Medical History / Comment(s): Bronchitis, chronic pain-back and cervical, migraines, DJD, DVT L leg in 2012, kidney stones. History of Any Multi-Drug Resistant Organisms: None Reported Past Surgical History: Orthopedic Surgery Additional Past Surgical History / Comment(s): right knee arthroscopic, R oophorectomy d/t cyst, bilateral cervical facet blocks. Past Anesthesia/Blood Transfusion Reactions: No Reported Reaction Past Psychological History: Anxiety, Depression Additional Psychological History / Comment(s): Pt resides alone. She has a nebulizer and oxygen that she uses prn. She does not own a car. She gets to [facility] by her mother or sister driving her. Smoking Status: Current every day smoker Past Alcohol Use History: Rare Additional Past Alcohol Use History / Comment(s): STARTED SMOKING AT AGE 15- SMOKES 1/2PPD Past Drug Use History: None Reported - Past Family History Mother Family Medical History: No Reported History Additional Family Medical History / Comment(s): Diverticulitis Father Family Medical History: Cancer, Congestive Heart Failure (CHF), Diabetes Mellitus, Eye Disorder, Hypertension Additional Family Medical History / Comment(s): Father was exposed to agent orange. He at the age of 46 from diabetic complications. Medications and Allergies Home Medications Medication Instructions Recorded Confirmed Type ALPRAZolam [Xanax] 0.25 mg PO TID PRN #9 tab 10/06/18 10/07/18 Rx Albuterol Sulfate [Proair Hfa] 2 puff INHALATION RT-Q4H PRN #1 10/06/18 Rx [email or web address].[email or web address] Azithromycin [Zithromax] 500 mg PO DAILY #7 tab 10/06/18 10/07/18 Rx Budesonide/Formoterol Fumarate 2 puff INHALATION RT-BID PRN #1 10/06/18 Rx [Symbicort 160-4.5 Mcg Inhaler] hfa.aer.ad Diltiazem Oral [Cardizem*] 60 mg PO TID #90 tab 10/06/18 10/07/18 Rx Ipratropium-Albuterol Nebulize 3 ml INHALATION RT-QID #120 10/06/18 10/07/18 Rx [Duoneb 0.5 mg-3 mg/3 ml Soln] ampul.neb predniSONE See Taper PO DAILY 10/07/18 10/07/18 History Allergies Allergy/AdvReac Type Severity Reaction Status Date / Time Penicillins Allergy Unknown Verified 10/07/18 08:55 Childhood Physical Exam Vitals: Vital Signs Temp Pulse Pulse Resp BP BP Pulse Ox 10/08/18 12:26 98 F 94 18 166/97 92 L 10/08/18 11:17 92 10/08/18 11:07 88 10/08/18 07:41 100 10/08/18 07:26 100 10/08/18 05:00 97.6 F 88 19 147/71 95 10/08/18 00:00 93 10/07/18 21:16 98 F 116 H 19 181/92 92 L 10/07/18 20:55 108 H 10/07/18 20:41 103 H 10/07/18 16:29 104 H 10/07/18 16:20 103 H Intake and Output 10/07/18 10/08/18 10/08/18 22:59 06:59 14:59 Intake Total 1080 780 Balance 1080 780 Intake: Intake, IV Titration 80 Amount Sodium Chloride 0.9% 500 80 ml 500 ml @ 999 mls/hr IV .Q31M STA Rx#:[id number] Oral 1000 780 Other: # Voids 2 2 3 Weight 81.647 kg - Constitutional General appearance: no acute distress - EENT Eyes: EOMI Ears: bilateral: normal - Neck Neck: no lymphadenopathy Thyroid: bilateral: normal size - Respiratory Respiratory: bilateral: diminished, wheezing, prolonged expiration - Cardiovascular Rhythm: regular Heart sounds: normal: S1, S2 - Gastrointestinal General gastrointestinal: no organomegaly, soft, no tenderness - Neurologic Neurologic: CNII-XII intact - Musculoskeletal Musculoskeletal: gait normal, strength equal bilaterally - Psychiatric Psychiatric: A&O x's 3, appropriate affect, intact judgment & insight Results - Laboratory Findings CBC and BMP: 10/08/18 07:12 10/08/18 07:12 PT/INR, D-dimer PT 10.1 sec (9.0-12.0) 10/07/18 03:15 INR 0.9 (<1.2) 10/07/18 03:15 Abnormal lab findings: Abnormal Labs 10/07/18 10/07/18 10/07/18 03:15 03:15 03:15 WBC 16.2 H Hgb MCHC RDW 18.3 H Neutrophils # 13.4 H APTT 21.0 L Potassium Glucose 111 H POC Glucose (mg/dL) Magnesium Total Protein 10/07/18 10/07/18 10/07/18 07:18 11:16 16:28 WBC Hgb MCHC RDW Neutrophils # APTT Potassium Glucose POC Glucose (mg/dL) 139 H 125 H 182 H Magnesium Total Protein 10/07/18 10/08/18 10/08/18 20:18 07:12 07:12 WBC Hgb 10.8 L MCHC 30.5 L RDW 17.9 H Neutrophils # APTT Potassium 5.3 H Glucose 115 H POC Glucose (mg/dL) 252 H Magnesium 2.4 H Total Protein 6.2 L - Diagnostic Findings Chest x-ray: report reviewed, image reviewed Additional studies: EKG reviewed Assessment and Plan Plan: Assessment: 1 acute COPD exacerbation, chest x-ray was negative for any acute cardiopulmonary disease. 2 recent hospitalization for acute COPD exacerbation, patient was home for 1 day , resumed smoking and was exposed to cold air while going outside. 3 chronic hypoxic respiratory failure related to COPD and the patient is O2 dependent on outpatient basis 4 chronic nicotine addiction 5 remote history of a DVT of the left lower extremity back in 2012 6 sinus tachycardia 7chronic osteoarthritis 8 chronic pain involving the back and the neck along with history of degenerative arthritis 9 history of kidney stones 10 anxiety Plan: Continue current medical treatment, IV steroids, Zithromax, nebulized bronchodilators. Smoking cessation counseling was done. This x-ray was reviewed by Dr. Ceron, did not show any evidence of pneumonia. We'll continue to follow. I performed a history & physical examination of the patient and discussed their management with my nurse practitioner, Mi Stout. I reviewed the nurse practitioner's note and agree with the documented findings and plan of care. Lung sounds are positive for diminished breath sounds with wheezing on forced exhale maneuver. The findings and the impression was discussed with the patient. I attest to the documentation by the nurse practitioner. Time with Patient: Greater than 30
[2018-10-08] MEDS: guaiFENesin 600 MG TABLET.ER PO SCH (20:56)
[2018-10-09] MEDS: diphenhydrAMINE 25 MG CAP PO PRN ×2 (03:56→21:53)
[2018-10-09] MEDS: methylPREDNISolone SOD SUCCI 125 MG/2 ML VIAL IV SCH (05:57)
[2018-10-09 07:42] LABS: Anisocytosis Slight; Basophils % (A) 0 %; Eosinophils % (A) 0 %; HGB 11.2 gm/dL (11.4-16.0); Hypochromasia Moderate; Lymphocytes # (A) 1.8 k/uL (1.0-4.8); Lymphocytes % (A) 16 %; MCH 25.1 pg (25.0-35.0); MCHC 30.4 g/dL (31.0-37.0); MCV 82.8 fL (80.0-100.0); Mean Platelet Volume 6.5; Monocytes # (A) 0.7 k/uL (0-1.0); Monocytes % (A) 6 %; Neutrophils # (A) 8.7 k/uL (1.3-7.7); Neutrophils % (A) 76 %; Platelet Count 346 k/uL (150-450); RBC 4.47 m/uL (3.80-5.40); RDW 17.2 % (11.5-15.5); WBC 11.4 k/uL (3.8-10.6)
[2018-10-09] MEDS: PANTOPRAZOLE 40 MG TABLET PO SCH (07:53)
[2018-10-09] MEDS: NICOTINE 14MG/24HR PATCH TRANSDERM SCH (07:53)
[2018-10-09] MEDS: AZITHROMYCIN 500 MG TAB PO SCH (07:54)
[2018-10-09] MEDS: HEPARIN SODIUM,PORCINE 5,000 UNIT/ML 1 ML VIAL SQ SCH ×2 (07:54→16:01)
[2018-10-09] MEDS: guaiFENesin 600 MG TABLET.ER PO SCH ×2 (07:54→21:53)
[2018-10-09 07:55] LABS: Anion Gap 6 mmol/L; Blood Urea Nitrogen 21 mg/dL (7-17); Calcium 8.7 mg/dL (8.4-10.2); Carbon Dioxide 30 mmol/L (22-30); Chloride 102 mmol/L (98-107); Glucose 92 mg/dL (74-99); Potassium 4.7 mmol/L (3.5-5.1); Sodium 138 mmol/L (137-145)
[2018-10-09] MEDS: IPRATROPIUM-ALBUTEROL 3 ML NEB INHALATION SCH ×4 (07:55→20:04)
[2018-10-09] MEDS: BUDESONIDE 1 MG/2 ML NEBU INHALATION SCH ×2 (07:56→20:04)
--- NOTE | 2018-10-09 12:03 | P.PN ---
Subjective Progress Note Date: 10/09/18 Principal diagnosis: Acute exacerbation of chronic obstructive pulmonary disease This is a 48-year-old female patient of Dr. Conti, who was discharged home on 10/06/2018 after being hospitalized for acute exacerbation of COPD. Patient states she had recently moved and her nebulizer machine along with her medications were lost in the move, and she was unable to make it to pharmacy before the closed for her medications. In the evening she became increasingly more short of breath, she is a current smoker, and patient resumed smoking when she returned home. Patient states she was going outside to smoke and she thinks that the cold weather along with smoking may have exacerbated her symptoms. Chest x-ray did not show any acute cardiopulmonary disease. Patient denied any fever or chills, initial lab work showed WBC of 16.2, hemoglobin of 11.9, electrolytes and renal profile were unremarkable. LFTs were normal, troponin was negative. Follow blood work today showed WBC within normal limits at 8.8, hemoglobin is 10.8, potassium is 5.3, the rest of the BMP was normal. Patient was started on IV steroids, nebulized bronchodilators, Zithromax, and on today's exam she is breathing easier, although still mildly bronchospastic. Patient seen again today 10/09/2018 in follow-up on the regular medical floor. She is awake and alert in no acute distress. She is breathing better today as compared to yesterday. No worsening shortness of breath, cough or congestion. Still not quite back to her baseline. She is maintaining good O2 saturations in the 90s on 2 L/m per nasal cannula. She been afebrile. Hemodynamically stable. Blood culture reveals no growth. White count 11.4. Hemoglobin 11.2. Creatinine 0.72. She remains on DuoNeb inhalations, Pulmicort inhalations, IV Solu-Medrol. Empiric antibiotics in the form of azithromycin. Objective - Vital Signs Vital signs: Vital Signs Temp 97.8 F 10/09/18 04:51 Pulse 89 10/09/18 11:38 Resp 16 10/09/18 04:51 BP 138/79 10/09/18 04:51 Pulse Ox 93 L 10/08/18 21:24 Intake & Output 10/08/18 10/09/18 10/09/18 18:59 06:59 18:59 Intake Total 1910 Balance 1910 Weight 81.647 kg Intake: Oral 1909 Other: # Voids 3 3 - Exam GENERAL EXAM: Alert, active, comfortable in no apparent distress. On 2 L/NC HEAD: Normocephalic. EYES: Normal reaction of pupils, equal size. NOSE: Clear with pink turbinates. THROAT: No erythema or exudates. NECK: No masses, no JVD. CHEST: No chest wall deformity. LUNGS: Equal air entry with faint end expiratory wheeze, diminished. CVS: S1 and S2 normal with no audible murmur, regular rhythm. ABDOMEN: No hepatosplenomegaly, normal bowel sounds, no guarding or rigidity. SPINE: No scoliosis or deformity SKIN: No rashes CENTRAL NERVOUS SYSTEM: No focal deficits, tone is normal in all 4 extremities. EXTREMITIES: There is no peripheral edema. No clubbing, no cyanosis. Peripheral pulses are intact. - Labs CBC & Chem 7: 10/09/18 06:38 10/09/18 06:38 Labs: Abnormal Lab Results - Last 24 Hours (Table) 10/09/18 10/09/18 Range/Units 06:38 06:38 WBC 11.4 H (3.8-10.6) k/uL Hgb 11.2 L (11.4-16.0) gm/dL MCHC 30.4 L (31.0-37.0) g/dL RDW 17.2 H (11.5-15.5) % Neutrophils # 8.7 H (1.3-7.7) k/uL BUN 21 H (7-17) mg/dL Microbiology - Last 24 Hours (Table) 10/07/18 04:25 Blood Culture - Preliminary Blood No Growth after 48 hours Assessment and Plan Assessment: Assessment: 1 acute COPD exacerbation, chest x-ray was negative for any acute cardiopulmonary disease. 2 recent hospitalization for acute COPD exacerbation, patient was home for 1 day , resumed smoking and was exposed to cold air while going outside. 3 chronic hypoxic respiratory failure related to COPD and the patient is O2 dependent on outpatient basis 4 chronic nicotine addiction 5 remote history of a DVT of the left lower extremity back in 2012 6 sinus tachycardia 7 chronic osteoarthritis 8 chronic pain involving the back and the neck along with history of degenerative arthritis 9 history of kidney stones 10 anxiety Plan: The patient was seen and evaluated by Dr. Naina. We'll continue with her current treatment plan including DuoNeb inhalations, Pulmicort and Perforomist inhalations, IV Solu-Medrol, empiric antibiotics in the form of azithromycin. She is again educated regarding the importance of complete smoking cessation. 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 We will continue to follow. I, the cosigning physician, performed a history & physical examination of the patient. Lungs sounds with faint end expiratory wheeze, diminished. Maintaining good O2 saturations in the 90s on 2 L/m per nasal cannula. I discussed the assessment and plan of care with my nurse practitioner, Ольга Barron. I attest to the above note as dictated by her.
--- NOTE | 2018-10-09 14:17 | P.PN ---
Subjective Progress Note Date: 10/09/18 48-year-old female one of Dr. 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 Wetzel. 10/08: Patient continues to have wheezing and tightness is only slightly improved from yesterday. We will continue Solu-Medrol at 60 mg every 6 hours without change. She is on Pulmicort 1 mg twice daily and DuoNeb treatments. Antibiotics are Zithromax. She remains afebrile, pulse ox is 92% on 2 L. Pulmonary medicine is following. 10/09: Patient has been seen by Dr. Chew with plan to continue the same treatment. No evidence of pneumonia. Patient has been afebrile, vital signs are stable, pulse ox is 93% on 2 L nasal cannula. Blood cultures no growth after 48 hours. Solu-Medrol is at 60 mg IV every 6 hours and will be decreased to 40 mg every 8 hours. Patient states her shortness of breath is improving. During the night she did have itching all over which is resolved now. Review of Systems Constitutional: Denies anorexia, Denies chronic headaches, Denies weight gain Eyes: denies blurred vision, denies bulging eye, denies decreased vision Ears: deny: decreased hearing Ears, nose, mouth and throat: Denies dysphagia, Denies neck lump, Denies sore throat Cardiovascular: Reports decreased exercise tolerance, Reports dyspnea on exertion, Reports rapid heart beat, Reports shortness of breath, Denies chest pain, Denies syncope Respiratory: Reports congestion, Reports cough, Reports cough with sputum, Reports home oxygen, Reports wheezing, Denies snoring Gastrointestinal: Denies abdominal pain, Denies bloating, Denies BRBPR, Denies heartburn, Denies loss of appetite, Denies melena, Denies nausea, Denies vomiting Genitourinary: Denies dysuria Musculoskeletal: Denies myalgias Musculoskeletal: absent: ankle pain, ankle stiffness, ankle swelling, elbow pain , elbow stiffness, elbow swelling, foot pain, foot stiffness, foot swelling, hand pain, hand stiffness, hand swelling, hip pain, hip stiffness, hip swelling , knee pain, knee stiffness, knee swelling, shoulder pain, shoulder stiffness, shoulder swelling, wrist pain, wrist stiffness, wrist swelling Integumentary: Complains of pruritus, Denies rash Neurological: Denies numbness, Denies weakness Psychiatric: Reports anxiety, Reports depression, Denies suicidal ideation Endocrine: Denies fatigue, Denies weight change Objective - Vital Signs Vital signs: Vital Signs Temp 97.8 F 10/09/18 04:51 Pulse 94 10/09/18 08:13 Resp 16 10/09/18 04:51 BP 138/79 10/09/18 04:51 Pulse Ox 93 L 10/08/18 21:24 Intake & Output 10/08/18 10/09/18 10/09/18 18:59 06:59 18:59 Intake Total 1909 Balance 1909 Weight 81.647 kg Intake: Oral 1909 Other: # Voids 3 3 - Exam General appearance: average body habitus, no distress - EENT Eyes: anicteric sclerae, EOMI, PERRLA, no ptosis ENT: hearing grossly normal, NA/AT, normal oropharynx, no thrush Ears: bilateral: normal - Neck Neck: no lymphadenopathy, normal ROM, no rigidity, no stridor, no thyromegaly Carotids: bilateral: upstroke normal - Respiratory Respiratory: bilateral: diminished, rhonchi, wheezing, prolonged expiration, negative: dullness, rales - Cardiovascular Rhythm: regular Heart sounds: normal: S1, S2 Abnormal Heart Sounds: systolic murmur - Gastrointestinal General gastrointestinal: normal bowel sounds, soft, no splenomegaly, no tenderness, no umbilical hernia, no ventral hernia - Integumentary Integumentary: normal, normal turgor - Neurologic Neurologic: CNII-XII intact - Musculoskeletal Musculoskeletal: strength equal bilaterally - Psychiatric Psychiatric: A&O x's 3, appropriate affect, intact judgment & insight - Labs CBC & Chem 7: 10/09/18 06:38 10/09/18 06:38 Labs: Abnormal Lab Results - Last 24 Hours (Table) 10/09/18 10/09/18 Range/Units 06:38 06:38 WBC 11.4 H (3.8-10.6) k/uL Hgb 11.2 L (11.4-16.0) gm/dL MCHC 30.4 L (31.0-37.0) g/dL RDW 17.2 H (11.5-15.5) % Neutrophils # 8.7 H (1.3-7.7) k/uL BUN 21 H (7-17) mg/dL Microbiology - Last 24 Hours (Table) 10/07/18 04:25 Blood Culture - Preliminary Blood No Growth after 48 hours Assessment and Plan Plan: 1. Acute hypoxic respiratory failure secondary to acute exacerbation of COPD with acute bronchitis. Continue patient on Solu-Medrol 60 mg IV push every 6 hours around the clock, continue nebulized treatment in the form of DuoNeb 3 mg position 4 times every day, Pulmicort 1 mg twice every day, continue Zithromax 500 mg orally once every day, pulmonary consultation appreciated, oxygen at 2 L nasal cannula. Consult with Dr. Chew. 2. Sinus tachycardia. Likely related to acute exacerbation of COPD. Continue Cardizem 60 mg orally 3 times every day. 3. Chronic tobacco use and dependence. Patient will be placed on nicotine patch 14 mg once every day. Smoking cessation and counseling an increased risk of CAD, CVA, and malignancy. 4. History of DVT. Continue with DVT prophylaxis. 5. Anxiety disorder. Continue Xanax as needed. 6. DVT prophylaxis. Continue patient on heparin 5000 units subcutaneously every 8 hours. 7. GI prophylaxis. Continue Protonix 40 mg orally once every day. 8. Patient is full code. Discharge plan: Return home Impression and plan of care have been directed as dictated by the signing physician. Kathryn Guevara nurse practitioner acting as scribe for signing physician.
[2018-10-09] MEDS: methylPREDNISolone SOD SUCCI 40 MG/ML 1 ML VIAL IV SCH (16:04)
[2018-10-09] MEDS: traMADol 50 MG TAB PO PRN (16:08)
[2018-10-09] MEDS: ALPRAZolam 0.25 MG TAB PO PRN (21:52)
[2018-10-10] MEDS: methylPREDNISolone SOD SUCCI 40 MG/ML 1 ML VIAL IV SCH ×2 (01:03→08:54)
[2018-10-10] MEDS: HEPARIN SODIUM,PORCINE 5,000 UNIT/ML 1 ML VIAL SQ SCH ×3 (01:06→12:36)
[2018-10-10] MEDS: IPRATROPIUM-ALBUTEROL 3 ML NEB INHALATION SCH ×3 (08:06→20:08)
[2018-10-10] MEDS: BUDESONIDE 1 MG/2 ML NEBU INHALATION SCH ×2 (08:06→20:08)
[2018-10-10] MEDS: traMADol 50 MG TAB PO PRN ×2 (08:51→17:52)
[2018-10-10] MEDS: AZITHROMYCIN 500 MG TAB PO SCH (08:51)
[2018-10-10] MEDS: PANTOPRAZOLE 40 MG TABLET PO SCH (08:54)
[2018-10-10] MEDS: NICOTINE 14MG/24HR PATCH TRANSDERM SCH (08:54)
[2018-10-10] MEDS: guaiFENesin 600 MG TABLET.ER PO SCH ×2 (08:54→20:46)
--- NOTE | 2018-10-10 11:09 | P.PN ---
Subjective Progress Note Date: 10/10/18 Principal diagnosis: Acute exacerbation of chronic obstructive pulmonary disease This is a 48-year-old female patient of Dr. Conti, who was discharged home on 10/06/2018 after being hospitalized for acute exacerbation of COPD. Patient states she had recently moved and her nebulizer machine along with her medications were lost in the move, and she was unable to make it to pharmacy before the closed for her medications. In the evening she became increasingly more short of breath, she is a current smoker, and patient resumed smoking when she returned home. Patient states she was going outside to smoke and she thinks that the cold weather along with smoking may have exacerbated her symptoms. Chest x-ray did not show any acute cardiopulmonary disease. Patient denied any fever or chills, initial lab work showed WBC of 16.2, hemoglobin of 11.9, electrolytes and renal profile were unremarkable. LFTs were normal, troponin was negative. Follow blood work today showed WBC within normal limits at 8.8, hemoglobin is 10.8, potassium is 5.3, the rest of the BMP was normal. Patient was started on IV steroids, nebulized bronchodilators, Zithromax, and on today's exam she is breathing easier, although still mildly bronchospastic. Patient seen again today 10/09/2018 in follow-up on the regular medical floor. She is awake and alert in no acute distress. She is breathing better today as compared to yesterday. No worsening shortness of breath, cough or congestion. Still not quite back to her baseline. She is maintaining good O2 saturations in the 90s on 2 L/m per nasal cannula. She been afebrile. Hemodynamically stable. Blood culture reveals no growth. White count 11.4. Hemoglobin 11.2. Creatinine 0.72. She remains on DuoNeb inhalations, Pulmicort inhalations, IV Solu-Medrol. Empiric antibiotics in the form of azithromycin. The patient is seen again today 10/10/2018 in follow-up on the regular medical floor. She is currently sitting up in bed. She is awake and alert in no acute distress. She states she didn't bring up some thick yellow sputum last night and is breathing easier today. She is maintaining good O2 saturations in the 90s on room air. She's been afebrile. Hemodynamically stable. She is still somewhat bronchospastic and wheezy. Still somewhat dyspneic on exertion. Blood culture reveals no growth. Objective - Vital Signs Vital signs: Vital Signs Temp 98.2 F 10/10/18 05:00 Pulse 104 H 10/10/18 08:24 Resp 16 10/10/18 05:00 BP 109/68 10/10/18 05:00 Pulse Ox 94 L 10/10/18 05:00 Intake & Output 10/09/18 10/10/18 10/10/18 18:59 06:59 18:59 Other: # Voids 3 2 - Exam GENERAL EXAM: Alert, active, comfortable in no apparent distress. On room air today. HEAD: Normocephalic. EYES: Normal reaction of pupils, equal size. NOSE: Clear with pink turbinates. THROAT: No erythema or exudates. NECK: No masses, no JVD. CHEST: No chest wall deformity. LUNGS: Equal air entry with faint end expiratory wheeze, diminished. CVS: S1 and S2 normal with no audible murmur, regular rhythm. ABDOMEN: No hepatosplenomegaly, normal bowel sounds, no guarding or rigidity. SPINE: No scoliosis or deformity SKIN: No rashes CENTRAL NERVOUS SYSTEM: No focal deficits, tone is normal in all 4 extremities. EXTREMITIES: There is no peripheral edema. No clubbing, no cyanosis. Peripheral pulses are intact. - Labs CBC & Chem 7: 10/09/18 06:38 10/09/18 06:38 Labs: Microbiology - Last 24 Hours (Table) 10/07/18 04:25 Blood Culture - Preliminary Blood No Growth after 72 hours Assessment and Plan Assessment: Assessment: 1 acute COPD exacerbation, chest x-ray was negative for any acute cardiopulmonary disease. 2 recent hospitalization for acute COPD exacerbation, patient was home for 1 day , resumed smoking and was exposed to cold air while going outside. 3 chronic hypoxic respiratory failure related to COPD and the patient is O2 dependent on outpatient basis 4 chronic nicotine addiction 5 remote history of a DVT of the left lower extremity back in 2012 6 sinus tachycardia 7 chronic osteoarthritis 8 chronic pain involving the back and the neck along with history of degenerative arthritis 9 history of kidney stones 10 anxiety Plan: The patient was seen and evaluated by Dr. Chew. She has been slow to progress. We'll continue with her current treatment plan. She is again educated regarding the importance of complete smoking cessation. 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 Probably home in the a.m. We will continue to follow. I, the cosigning physician, performed a history & physical examination of the patient. Lungs sounds with faint end expiratory wheeze, diminished. Maintaining good O2 saturations in the 90s on room air. I discussed the assessment and plan of care with my nurse practitioner, Ольга Barron. I attest to the above note as dictated by her.
--- NOTE | 2018-10-10 12:43 | P.PN ---
Subjective Progress Note Date: 10/10/18 48-year-old female one of Dr. 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 Wetzel. 10/08: Patient continues to have wheezing and tightness is only slightly improved from yesterday. We will continue Solu-Medrol at 60 mg every 6 hours without change. She is on Pulmicort 1 mg twice daily and DuoNeb treatments. Antibiotics are Zithromax. She remains afebrile, pulse ox is 92% on 2 L. Pulmonary medicine is following. 10/09: Patient has been seen by Dr. Chew with plan to continue the same treatment. No evidence of pneumonia. Patient has been afebrile, vital signs are stable, pulse ox is 93% on 2 L nasal cannula. Blood cultures no growth after 48 hours. Solu-Medrol is at 60 mg IV every 6 hours and will be decreased to 40 mg every 8 hours. Patient states her shortness of breath is improving. During the night she did have itching all over which is resolved now. 10/10: Patient states that her cough became much better after Mucinex was added yesterday. Her breathing is improved today. Solu-Medrol will be decreased to 40 mg every 12 hours and plan to start prednisone tomorrow. Anticipate discharge home tomorrow. Review of Systems Constitutional: Denies anorexia, Denies chronic headaches, Denies weight gain Eyes: denies blurred vision, denies bulging eye, denies decreased vision Ears: deny: decreased hearing Ears, nose, mouth and throat: Denies dysphagia, Denies neck lump, Denies sore throat Cardiovascular: Reports decreased exercise tolerance, Reports dyspnea on exertion, denies rapid heart beat, Reports shortness of breath, Denies chest pain, Denies syncope Respiratory: Reports congestion, Reports cough, Reports cough with sputum, Reports home oxygen, Reports wheezing, Denies snoring Gastrointestinal: Denies abdominal pain, Denies bloating, Denies BRBPR, Denies heartburn, Denies loss of appetite, Denies melena, Denies nausea, Denies vomiting Genitourinary: Denies dysuria Musculoskeletal: Denies myalgias Musculoskeletal: absent: ankle pain, ankle stiffness, ankle swelling, elbow pain , elbow stiffness, elbow swelling, foot pain, foot stiffness, foot swelling, hand pain, hand stiffness, hand swelling, hip pain, hip stiffness, hip swelling , knee pain, knee stiffness, knee swelling, shoulder pain, shoulder stiffness, shoulder swelling, wrist pain, wrist stiffness, wrist swelling Integumentary: Complains of pruritus, Denies rash Neurological: Denies numbness, Denies weakness Psychiatric: Reports anxiety, Reports depression, Denies suicidal ideation Endocrine: Denies fatigue, Denies weight change Objective - Vital Signs Vital signs: Vital Signs Temp 98.2 F 10/10/18 05:00 Pulse 104 H 10/10/18 08:24 Resp 16 10/10/18 05:00 BP 109/68 10/10/18 05:00 Pulse Ox 94 L 10/10/18 05:00 Intake & Output 10/09/18 10/10/18 10/10/18 18:59 06:59 18:59 Other: # Voids 3 2 - Exam General appearance: average body habitus, no distress - EENT Eyes: anicteric sclerae, EOMI, PERRLA, no ptosis ENT: hearing grossly normal, NA/AT, normal oropharynx, no thrush Ears: bilateral: normal - Neck Neck: no lymphadenopathy, normal ROM, no rigidity, no stridor, no thyromegaly Carotids: bilateral: upstroke normal - Respiratory Respiratory: bilateral: rhonchi, wheezing, prolonged expiration, negative: dullness, rales - Cardiovascular Rhythm: regular Heart sounds: normal: S1, S2 Abnormal Heart Sounds: systolic murmur - Gastrointestinal General gastrointestinal: normal bowel sounds, soft, no splenomegaly, no tenderness, no umbilical hernia, no ventral hernia - Integumentary Integumentary: normal, normal turgor - Neurologic Neurologic: CNII-XII intact - Musculoskeletal Musculoskeletal: strength equal bilaterally - Psychiatric Psychiatric: A&O x's 3, appropriate affect, intact judgment & insight - Labs CBC & Chem 7: 10/09/18 06:38 10/09/18 06:38 Labs: Microbiology - Last 24 Hours (Table) 10/07/18 04:25 Blood Culture - Preliminary Blood No Growth after 72 hours Assessment and Plan Plan: 1. Acute hypoxic respiratory failure secondary to acute exacerbation of COPD with acute bronchitis. Continue patient on Solu-Medrol decreased to 40 mg every 12 hours and start prednisone in the morning, continue nebulized treatment in the form of DuoNeb 3 mg position 4 times every day, Pulmicort 1 mg twice every day, continue Zithromax 500 mg orally once every day, pulmonary consultation appreciated, oxygen at 2 L nasal cannula. Consult with Dr. Chew. 2. Sinus tachycardia. Likely related to acute exacerbation of COPD. Continue Cardizem 60 mg orally 3 times every day. 3. Chronic tobacco use and dependence. Patient will be placed on nicotine patch 14 mg once every day. Smoking cessation and counseling an increased risk of CAD, CVA, and malignancy. 4. History of DVT. Continue with DVT prophylaxis. 5. Anxiety disorder. Continue Xanax as needed. 6. DVT prophylaxis. Continue patient on heparin 5000 units subcutaneously every 8 hours. 7. GI prophylaxis. Continue Protonix 40 mg orally once every day. 8. Patient is full code. Discharge plan: Return home tomorrow Impression and plan of care have been directed as dictated by the signing physician. Kathryn Guevara nurse practitioner acting as scribe for signing physician.
[2018-10-10] MEDS: ALPRAZolam 0.25 MG TAB PO PRN (20:47)
[2018-10-10] MEDS ORDERED: methylPREDNISolone SOD SUCCI 40 MG/ML 1 ML VIAL IV SCH (21:00)
[2018-10-11] MEDS: HEPARIN SODIUM,PORCINE 5,000 UNIT/ML 1 ML VIAL SQ SCH ×2 (00:04→07:38)
[2018-10-11 04:23] VITALS: BP 150/73; RESP 16; TEMP 97.9
[2018-10-11] MEDS: diphenhydrAMINE 25 MG CAP PO PRN (05:38)
[2018-10-11] MEDS: BUDESONIDE 1 MG/2 ML NEBU INHALATION SCH (07:21)
[2018-10-11] MEDS: IPRATROPIUM-ALBUTEROL 3 ML NEB INHALATION SCH (07:21)
[2018-10-11] MEDS: AZITHROMYCIN 500 MG TAB PO SCH (07:38)
[2018-10-11] MEDS: NICOTINE 14MG/24HR PATCH TRANSDERM SCH (07:42)
[2018-10-11] MEDS: guaiFENesin 600 MG TABLET.ER PO SCH (07:43)
[2018-10-11] MEDS: ACETAMINOPHEN TAB 325 MG TAB PO PRN (07:43)
[2018-10-11] MEDS: PANTOPRAZOLE 40 MG TABLET PO SCH (07:43)
[2018-10-11 07:49] VITALS: PULSE 86
[2018-10-11] MEDS ORDERED: predniSONE 20 MG TAB PO SCH (09:00)
--- NOTE | 2018-10-11 12:26 | P.PN ---
Subjective Progress Note Date: 10/11/18 Principal diagnosis: Acute exacerbation of chronic obstructive pulmonary disease This is a 48-year-old female patient of Dr. Conti, who was discharged home on 10/06/2018 after being hospitalized for acute exacerbation of COPD. Patient states she had recently moved and her nebulizer machine along with her medications were lost in the move, and she was unable to make it to pharmacy before the closed for her medications. In the evening she became increasingly more short of breath, she is a current smoker, and patient resumed smoking when she returned home. Patient states she was going outside to smoke and she thinks that the cold weather along with smoking may have exacerbated her symptoms. Chest x-ray did not show any acute cardiopulmonary disease. Patient denied any fever or chills, initial lab work showed WBC of 16.2, hemoglobin of 11.9, electrolytes and renal profile were unremarkable. LFTs were normal, troponin was negative. Follow blood work today showed WBC within normal limits at 8.8, hemoglobin is 10.8, potassium is 5.3, the rest of the BMP was normal. Patient was started on IV steroids, nebulized bronchodilators, Zithromax, and on today's exam she is breathing easier, although still mildly bronchospastic. Patient seen again today 10/09/2018 in follow-up on the regular medical floor. She is awake and alert in no acute distress. She is breathing better today as compared to yesterday. No worsening shortness of breath, cough or congestion. Still not quite back to her baseline. She is maintaining good O2 saturations in the 90s on 2 L/m per nasal cannula. She been afebrile. Hemodynamically stable. Blood culture reveals no growth. White count 11.4. Hemoglobin 11.2. Creatinine 0.72. She remains on DuoNeb inhalations, Pulmicort inhalations, IV Solu-Medrol. Empiric antibiotics in the form of azithromycin. The patient is seen again today 10/10/2018 in follow-up on the regular medical floor. She is currently sitting up in bed. She is awake and alert in no acute distress. She states she didn't bring up some thick yellow sputum last night and is breathing easier today. She is maintaining good O2 saturations in the 90s on room air. She's been afebrile. Hemodynamically stable. She is still somewhat bronchospastic and wheezy. Still somewhat dyspneic on exertion. Blood culture reveals no growth. The patient is seen again today 10/11/2018 in follow-up on the regular medical floor. She is awake and alert in no acute distress. She's been up ambulating in the hallway. She denies any worsening shortness of breath, cough or congestion. No chills or night sweats. Blood culture reveals no growth. She is anxious to go home. Objective - Vital Signs Vital signs: Vital Signs Temp 97.9 F 10/11/18 04:22 Pulse 86 10/11/18 07:46 Resp 16 10/11/18 07:46 BP 150/73 10/11/18 04:22 Pulse Ox 97 10/11/18 04:22 Intake & Output 10/10/18 10/11/18 10/11/18 18:59 06:59 18:59 Intake Total 200 Balance 200 Weight 81.647 kg Intake: Oral 200 Other: # Voids 2 1 - Exam GENERAL EXAM: Alert, active, comfortable in no apparent distress. On room air today. HEAD: Normocephalic. EYES: Normal reaction of pupils, equal size. NOSE: Clear with pink turbinates. THROAT: No erythema or exudates. NECK: No masses, no JVD. CHEST: No chest wall deformity. LUNGS: Equal air entry with faint end expiratory wheeze, diminished. CVS: S1 and S2 normal with no audible murmur, regular rhythm. ABDOMEN: No hepatosplenomegaly, normal bowel sounds, no guarding or rigidity. SPINE: No scoliosis or deformity SKIN: No rashes CENTRAL NERVOUS SYSTEM: No focal deficits, tone is normal in all 4 extremities. EXTREMITIES: There is no peripheral edema. No clubbing, no cyanosis. Peripheral pulses are intact. - Labs CBC & Chem 7: 10/09/18 06:38 10/09/18 06:38 Labs: Microbiology - Last 24 Hours (Table) 10/07/18 04:25 Blood Culture - Preliminary Blood No Growth after 96 hours Assessment and Plan Assessment: Assessment: 1 acute COPD exacerbation, chest x-ray was negative for any acute cardiopulmonary disease. 2 recent hospitalization for acute COPD exacerbation, patient was home for 1 day , resumed smoking and was exposed to cold air while going outside. 3 chronic hypoxic respiratory failure related to COPD and the patient is O2 dependent on outpatient basis 4 chronic nicotine addiction 5 remote history of a DVT of the left lower extremity back in 2013 6 sinus tachycardia 7 chronic osteoarthritis 8 chronic pain involving the back and the neck along with history of degenerative arthritis 9 history of kidney stones 10 anxiety Plan: The patient was seen and evaluated by Dr. Chew. She is cleared for discharge from pulmonary standpoint. Complete a prednisone taper. She is again educated regarding the importance of complete smoking cessation. NicoDerm patches in place. 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 She will follow-up in our office in 1-2 weeks' time. She is however encouraged to call sooner with any recurrence of symptoms or other questions or concerns.. I, the cosigning physician, performed a history & physical examination of the patient. Lungs sounds with faint end expiratory wheeze, diminished. Maintaining good O2 saturations in the 90s on room air. I discussed the assessment and plan of care with my nurse practitioner, Ольга Barron. I attest to the above note as dictated by her.
--- NOTE | 2018-10-11 14:57 | P.DS ---
Providers Date of admission: 10/08/18 23:36 Expected date of discharge: 10/11/18 Attending physician: Marge Ramirez Consults: 10/07/18 08:01 Consult Physician Routine Consulting Provider: Francisco Wetzel Consult Reason/Comments: COPD exacerbation Do you want consulting provider notified?: Yes Primary care physician: [facility] Course: 48-year-old female one of Dr. 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 Wetzel. 10/08: Patient continues to have wheezing and tightness is only slightly improved from yesterday. We will continue Solu-Medrol at 60 mg every 6 hours without change. She is on Pulmicort 1 mg twice daily and DuoNeb treatments. Antibiotics are Zithromax. She remains afebrile, pulse ox is 92% on 2 L. Pulmonary medicine is following. 10/09: Patient has been seen by Dr. Chew with plan to continue the same treatment. No evidence of pneumonia. Patient has been afebrile, vital signs are stable, pulse ox is 93% on 2 L nasal cannula. Blood cultures no growth after 48 hours. Solu-Medrol is at 60 mg IV every 6 hours and will be decreased to 40 mg every 8 hours. Patient states her shortness of breath is improving. During the night she did have itching all over which is resolved now. 12/12: Patient states that her cough became much better after Mucinex was added yesterday. Her breathing is improved today. Solu-Medrol will be decreased to 40 mg every 12 hours and plan to start prednisone tomorrow. Anticipate discharge home tomorrow. 10/11: Patient is breathing status is improved today. She is complaining of rash and itchiness after taking tramadol which will be discontinued. Patient has been transitioned over to oral prednisone. Patient will be discharged home today in stable condition. Prescriptions were sent to her pharmacy several days ago and the previous admission the patient is already picked these up. Discharge diagnoses: 1. Acute hypoxic respiratory failure secondary to acute exacerbation of COPD with acute bronchitis. 2. Sinus tachycardia. Likely related to acute exacerbation of COPD. 3. Chronic tobacco use and dependence. 4. History of DVT. 5. Generalized anxiety disorder. Discharge plan: Return home Impression and plan of care have been directed as dictated by the signing physician. Kathryn Guevara nurse practitioner acting as scribe for signing physician. Patient Condition at Discharge: Good Plan - Discharge Summary Discharge Rx Participant: Yes New Discharge Prescriptions: New diphenhydrAMINE [Benadryl] 25 mg PO QID PRN cap PRN Reason: Itching guaiFENesin [Mucinex] 1,200 mg PO Q12HR tablet.er Nicotine 14Mg/24Hr Patch [Habitrol] 1 patch TRANSDERM DAILY #30 patch Continue ALPRAZolam [Xanax] 0.25 mg PO TID PRN #9 tab PRN Reason: Anxiety Azithromycin [Zithromax] 500 mg PO DAILY #7 tab Diltiazem Oral [Cardizem*] 60 mg PO TID #90 tab Ipratropium-Albuterol Nebulize [Duoneb 0.5 mg-3 mg/3 ml Soln] 3 ml INHALATION RT-QID #120 ampul.neb Albuterol Sulfate [Proair Hfa] 2 puff INHALATION RT-Q4H PRN #1 hfa.aer.ad PRN Reason: Dyspnea Budesonide/Formoterol Fumarate [Symbicort 160-4.5 Mcg Inhaler] 2 puff INHALATION RT-BID PRN #1 hfa.aer.ad PRN Reason: Shortness Of Breath predniSONE See Taper PO DAILY Discharge Medication List ALPRAZolam [Xanax] 0.25 mg PO TID PRN #9 tab 10/06/18 [Rx] Albuterol Sulfate [Proair Hfa] 2 puff INHALATION RT-Q4H PRN #1 hfa.aer.ad [Rx] Azithromycin [Zithromax] 500 mg PO DAILY #7 tab 10/06/18 [Rx] Budesonide/Formoterol Fumarate [Symbicort 160-4.5 Mcg Inhaler] 2 puff INHALATION RT-BID PRN #1 hfa.aer.ad 10/06/18 [Rx] Diltiazem Oral [Cardizem*] 60 mg PO TID #90 tab 10/06/18 [Rx] Ipratropium-Albuterol Nebulize [Duoneb 0.5 mg-3 mg/3 ml Soln] 3 ml INHALATION RT -QID #120 ampul.neb 10/06/18 [Rx] predniSONE See Taper PO DAILY 10/07/18 [History] Nicotine 14Mg/24Hr Patch [Habitrol] 1 patch TRANSDERM DAILY #30 patch 10/11/18 [ Rx] diphenhydrAMINE [Benadryl] 25 mg PO QID PRN cap 10/11/18 [Rx] guaiFENesin [Mucinex] 1,200 mg PO Q12HR tablet.er 10/11/18 [Rx] Follow up Appointment(s)/Referral(s): Darwin Ford MD [REFERRING] - 10/15/18 9:45 am Jerman Darnell MD [Primary Care Provider] - As Needed ( is out of office until 2018; see Dr Ford) Patient Instructions/Handouts: How to Stop Smoking (DC), COPD (Chronic Obstructive Pulmonary Disease) (DC) Activity/Diet/Wound Care/Special Instructions: Activity as tolerated. Discharge Disposition: HOME SELF-CARE
== END 2018-10-11 11:27 | disposition home or self-care (01) | DRG 190 ==
LOC: EC 02:56 → 3NMEDONC 05:35 → OBSVTOIN 10-08 23:36
PROVIDERS: ADMIT Internal Medicine; ATTEND Internal Medicine
DX: J44.1 Chronic obstructive pulmonary disease with (acute) exacerbation (principal); J96.21 Acute and chronic respiratory failure with hypoxia; J44.0 Chronic obstructive pulmonary disease with (acute) lower respiratory infection; J20.9 Acute bronchitis, unspecified; Z71.6 Tobacco abuse counseling; F17.210 Nicotine dependence, cigarettes, uncomplicated; F32.9 Major depressive disorder, single episode, unspecified; F41.1 Generalized anxiety disorder; G89.29 Other chronic pain; M19.90 Unspecified osteoarthritis, unspecified site; Z79.51 Long term (current) use of inhaled steroids; Z82.49 Family history of ischemic heart disease and other diseases of the circulatory system; Z83.3 Family history of diabetes mellitus; Z86.718 Personal history of other venous thrombosis and embolism; Z87.442 Personal history of urinary calculi; Z90.721 Acquired absence of ovaries, unilateral; Z99.81 Dependence on supplemental oxygen; M54.2 Cervicalgia; Z88.0 Allergy status to penicillin; Z60.2 Problems related to living alone; Z79.899 Other long term (current) drug therapy
CPT/HCPCS: 36415; 71046; 80048; 80053; 82550; 82553; 83735; 84484; 85025; 85610; 85730; 87040; 93005; 94640; 94760; 96361; 96374; 99291

== ENCOUNTER 2018-11-20 16:01 | Emergency (ER) | payer MEDICARE, OTHER ==
[2018-11-20 16:07] VITALS: RESP 18
[2018-11-20] MEDS ORDERED: ONDANSETRON 4 MG/2 ML VIAL IVP STA (16:42)
[2018-11-20] MEDS ORDERED: MORPHINE SULFATE 4 MG/ML SYRINGE IV STA (16:42)
[2018-11-20] MEDS ORDERED: SODIUM CHLORIDE 0.9% 1,000 ML IV STA (16:42)
--- NOTE | 2018-11-20 16:54 | ED ---
Abdominal Pain HPI - General Chief Complaint: Abdominal Pain Stated Complaint: Abd pain, Dr sent Time Seen by Provider: 11/20/18 16:26 Source: patient, RN notes reviewed, old records reviewed Mode of arrival: ambulatory Limitations: no limitations - History of Present Illness Initial Comments: This is a 48-year-old female the ER for evaluation is patient presents today for evaluation regarding abdominal pain. Patient was essay for evaluation of abdominal pain, right flank pain epigastric bowel pain. No history of prior. Patient states she has history of hernia hiatal hernia which she is concern for. No melena modifying factors for pain at home. Patient denies drug or alcohol abuse. No significant surgical history MD Complaint: abdominal pain -: days(s) Location: periumbilical, epigastric, R flank Radiation: none, RLQ Migration to: RLQ, epigastric Severity: mild Severity scale (1-10): 3 Quality: aching Consistency: constant Improves With: nothing Worsens With: nothing Associated Symptoms: denies other symptoms - Related Data Previous Rx's Medication Instructions Recorded Ondansetron Odt [Zofran ODT] 4 mg PO Q8HR PRN #10 tab 11/20/18 Allergies Allergy/AdvReac Type Severity Reaction Status Date / Time Penicillins Allergy Unknown Verified 11/20/18 16:23 Childhood Review of Systems ROS Statement: Those systems with pertinent positive or pertinent negative responses have been documented in the HPI. ROS Other: All systems not noted in ROS Statement are negative. Past Medical History Past Medical History: Asthma, COPD, Deep Vein Thrombosis (DVT), Osteoarthritis ( OA) Additional Past Medical History / Comment(s): Bronchitis, chronic pain-back and cervical, migraines, DJD, DVT L leg in 2012, kidney stones. History of Any Multi-Drug Resistant Organisms: None Reported Past Surgical History: Orthopedic Surgery Additional Past Surgical History / Comment(s): right knee arthroscopic, R oophorectomy d/t cyst, bilateral cervical facet blocks. Past Anesthesia/Blood Transfusion Reactions: No Reported Reaction Past Psychological History: Anxiety, Depression Smoking Status: Current every day smoker Past Alcohol Use History: Rare Past Drug Use History: None Reported - Past Family History Mother Family Medical History: No Reported History Additional Family Medical History / Comment(s): Diverticulitis Father Family Medical History: Cancer, Congestive Heart Failure (CHF), Diabetes Mellitus, Eye Disorder, Hypertension Additional Family Medical History / Comment(s): Father was exposed to agent orange. He at the age of 46 from diabetic complications. General Exam Limitations: no limitations General appearance: alert, in no apparent distress Head exam: Present: atraumatic, normocephalic, normal inspection Eye exam: Present: normal appearance, PERRL, EOMI. Absent: scleral icterus, conjunctival injection, periorbital swelling ENT exam: Present: normal exam, mucous membranes moist Neck exam: Present: normal inspection. Absent: tenderness, meningismus, lymphadenopathy Respiratory exam: Present: normal lung sounds bilaterally. Absent: respiratory distress, wheezes, rales, rhonchi, stridor Cardiovascular Exam: Present: regular rate, normal rhythm, normal heart sounds. Absent: systolic murmur, diastolic murmur, rubs, gallop, clicks GI/Abdominal exam: Present: soft, tenderness (Right-sided abdomen and right flank, epigastric), normal bowel sounds. Absent: distended, guarding, rebound, rigid Extremities exam: Present: normal inspection, full ROM, normal capillary refill. Absent: tenderness, pedal edema, joint swelling, calf tenderness Back exam: Present: normal inspection Neurological exam: Present: alert, oriented X3, CN II-XII intact Psychiatric exam: Present: normal affect, normal mood Skin exam: Present: warm, dry, intact, normal color. Absent: rash Course Vital Signs 11/20/18 11/20/18 16:05 17:59 Temperature 98.4 F Pulse Rate 102 H 54 L Respiratory 18 18 Rate Blood Pressure 135/65 145/85 O2 Sat by Pulse 96 97 Oximetry - Reevaluation(s) Reevaluation #1: 11/20/18 18:42 Medical records reviewed Reevaluation #2: 11/20/18 18:42 Pain is controlled Medical Decision Making - Medical Decision Making 48 female the ER for eversion of bowel pain, mild pancreatitis, no specific finding on CAT scan labwork. Patient can be discharged home - Lab Data Result diagrams: 11/20/18 17:14 11/20/18 17:14 Lab Results 11/20/18 11/20/18 11/20/18 Range/Units 17:14 17:14 17:14 WBC 7.2 (3.8-10.6) k/uL RBC 4.96 (3.80-5.40) m/uL Hgb 12.9 (11.4-16.0) gm/dL Hct 39.9 (34.0-46.0) % MCV 80.5 (80.0-100.0) fL MCH 25.9 (25.0-35.0) pg MCHC 32.2 (31.0-37.0) g/dL RDW 16.1 H (11.5-15.5) % Plt Count 318 (150-450) k/uL Neutrophils % 50 % Lymphocytes % 37 % Monocytes % 7 % Eosinophils % 2 % Basophils % 0 % Neutrophils # 3.6 (1.3-7.7) k/uL Lymphocytes # 2.7 (1.0-4.8) k/uL Monocytes # 0.5 (0-1.0) k/uL Eosinophils # 0.1 (0-0.7) k/uL Basophils # 0.0 (0-0.2) k/uL Hypochromasia Slight Anisocytosis Slight Sodium 140 (137-145) mmol/L Potassium 4.9 (3.5-5.1) mmol/L Chloride 107 (98-107) mmol/L Carbon Dioxide 26 (22-30) mmol/L Anion Gap 7 mmol/L BUN 13 (7-17) mg/dL Creatinine 0.74 (0.52-1.04) mg/dL Est GFR (CKD-EPI)AfAm >90 (>60 ml/min/1.73 sqM) Est GFR (CKD-EPI)NonAf >90 (>60 ml/min/1.73 sqM) Glucose 91 (74-99) mg/dL Plasma Lactic Acid César 1.4 (0.7-2.0) mmol/L Calcium 9.5 (8.4-10.2) mg/dL Phosphorus 5.0 H (2.5-4.5) mg/dL Magnesium 2.2 (1.6-2.3) mg/dL Total Bilirubin 0.2 (0.2-1.3) mg/dL AST 17 (14-36) U/L ALT 16 (9-52) U/L Alkaline Phosphatase 76 (38-126) U/L Total Protein 7.1 (6.3-8.2) g/dL Albumin 4.2 (3.5-5.0) g/dL Amylase 75 (30-110) U/L Lipase 319 H (23-300) U/L Urine Color Urine Appearance (Clear) Urine pH (5.0-8.0) Ur Specific Edroy (1.001-1.035) Urine Protein (Negative) Urine Glucose (UA) (Negative) Urine Ketones (Negative) Urine Blood (Negative) Urine Nitrite (Negative) Urine Bilirubin (Negative) Urine Urobilinogen (<2.0) mg/dL Ur Leukocyte Esterase (Negative) 11/20/18 Range/Units 18:00 WBC (3.8-10.6) k/uL RBC (3.80-5.40) m/uL Hgb (11.4-16.0) gm/dL Hct (34.0-46.0) % MCV (80.0-100.0) fL MCH (25.0-35.0) pg MCHC (31.0-37.0) g/dL RDW (11.5-15.5) % Plt Count (150-450) k/uL Neutrophils % % Lymphocytes % % Monocytes % % Eosinophils % % Basophils % % Neutrophils # (1.3-7.7) k/uL Lymphocytes # (1.0-4.8) k/uL Monocytes # (0-1.0) k/uL Eosinophils # (0-0.7) k/uL Basophils # (0-0.2) k/uL Hypochromasia Anisocytosis Sodium (137-145) mmol/L Potassium (3.5-5.1) mmol/L Chloride (98-107) mmol/L Carbon Dioxide (22-30) mmol/L Anion Gap mmol/L BUN (7-17) mg/dL Creatinine (0.52-1.04) mg/dL Est GFR (CKD-EPI)AfAm (>60 ml/min/1.73 sqM) Est GFR (CKD-EPI)NonAf (>60 ml/min/1.73 sqM) Glucose (74-99) mg/dL Plasma Lactic Acid César (0.7-2.0) mmol/L Calcium (8.4-10.2) mg/dL Phosphorus (2.5-4.5) mg/dL Magnesium (1.6-2.3) mg/dL Total Bilirubin (0.2-1.3) mg/dL AST (14-36) U/L ALT (9-52) U/L Alkaline Phosphatase (38-126) U/L Total Protein (6.3-8.2) g/dL Albumin (3.5-5.0) g/dL Amylase (30-110) U/L Lipase (23-300) U/L Urine Color Light Yellow Urine Appearance Clear (Clear) Urine pH 7.0 (5.0-8.0) Ur Specific Edroy >1.050 H (1.001-1.035) Urine Protein Negative (Negative) Urine Glucose (UA) Negative (Negative) Urine Ketones Negative (Negative) Urine Blood Negative (Negative) Urine Nitrite Negative (Negative) Urine Bilirubin Negative (Negative) Urine Urobilinogen <2.0 (<2.0) mg/dL Ur Leukocyte Esterase Negative (Negative) - Radiology Data Radiology results: report reviewed (CT abdomen pelvis negative for acute disease ), image reviewed Disposition Clinical Impression: Abdominal pain, Pancreatitis Disposition: HOME SELF-CARE Condition: Good Instructions (If sedation given, give patient instructions): Pancreatitis (ED) Prescriptions: Ondansetron Odt [Zofran ODT] 4 mg PO Q8HR PRN #10 tab PRN Reason: nausea/vomiting Is patient prescribed a controlled substance at d/c from ED?: No Referrals: Jerman Darnell MD [Primary Care Provider] - 1-2 days
[2018-11-20 17:40] LABS: Anisocytosis Slight; Basophils % (A) 0 %; Eosinophils # (A) 0.1 k/uL (0-0.7); Eosinophils % (A) 2 %; HCT 39.9 % (34.0-46.0); HGB 12.9 gm/dL (11.4-16.0); Hypochromasia Slight; Lymphocytes # (A) 2.7 k/uL (1.0-4.8); Lymphocytes % (A) 37 %; MCH 25.9 pg (25.0-35.0); MCHC 32.2 g/dL (31.0-37.0); MCV 80.5 fL (80.0-100.0); Mean Platelet Volume 6.7; Monocytes # (A) 0.5 k/uL (0-1.0); Monocytes % (A) 7 %; Neutrophils # (A) 3.6 k/uL (1.3-7.7); Neutrophils % (A) 50 %; Platelet Count 318 k/uL (150-450); RBC 4.96 m/uL (3.80-5.40); RDW 16.1 % (11.5-15.5); WBC 7.2 k/uL (3.8-10.6)
[2018-11-20 17:46] LABS: Albumin 4.2 g/dL (3.5-5.0); Amylase 75 U/L (30-110); Carbon Dioxide 26 mmol/L (22-30); Chloride 107 mmol/L (98-107); Total Protein 7.1 g/dL (6.3-8.2)
[2018-11-20 17:47] LABS: ALT 16 U/L (9-52); AST 17 U/L (14-36); Alkaline Phosphatase 76 U/L (38-126); Anion Gap 7 mmol/L; Blood Urea Nitrogen 13 mg/dL (7-17); Calcium 9.5 mg/dL (8.4-10.2); Glucose 91 mg/dL (74-99); Lipase 319 U/L (23-300); Magnesium 2.2 mg/dL (1.6-2.3); Potassium 4.9 mmol/L (3.5-5.1); Sodium 140 mmol/L (137-145); Total Bilirubin 0.2 mg/dL (0.2-1.3)
--- NOTE | 2018-11-20 18:15 | CT ---
EXAMINATION TYPE: CT abdomen pelvis w con DATE OF EXAM: 11/20/2018 COMPARISON: CT 03/11/2014 HISTORY: Left sided discomfort with movement feeling per patient CT DLP: 884.1 mGycm Automated exposure control for dose reduction was used. TECHNIQUE: Helical acquisition of images was performed from the lung bases through the pelvis. CONTRAST: Performed without Oral Contrast and with IV Contrast, patient injected with 100 mL of Isovu e 370. FINDINGS: LUNG BASES: No significant abnormality is appreciated. LIVER/GB: No significant abnormality is appreciated. PANCREAS: No significant abnormality is seen. SPLEEN: No significant abnormality is seen. ADRENALS: Right adrenal is negative. 2.2 cm left adrenal nodule redemonstrated, most likely incidenta l adenoma. KIDNEYS: No significant abnormality is seen. FREE AIR: No free air is visualized. RETROPERITONEAL ADENOPATHY: None visualized REPRODUCTIVE ORGANS: No significant abnormality is seen URINARY BLADDER: No significant abnormality is seen. PELVIC ADENOPATHY: None visualized. OSSEOUS STRUCTURES: No significant abnormality is seen. BOWEL: No acute inflammatory process - but there are numerous colonic diverticula throughout the sig moid and descending colon. OTHER: Vasculature is unremarkable. IMPRESSION: NO ACUTE PROCESS.
[2018-11-20 18:25] LABS: Appearance,Urine Clear (Clear); Bilirubin,Urine Negative (Negative); Blood,Urine Negative (Negative); Color,Urine Light Yellow; Glucose,Urine (UA) Negative (Negative); Ketones,Urine Negative (Negative); Leukocyte Esterase,Urine Negative (Negative); Nitrite,Urine Negative (Negative); Protein,Urine Negative (Negative); Urobilinogen,Urine <2.0 mg/dL (<2.0)
[2018-11-20 18:31] LABS: Specific Gravity,Urine >1.050 (1.001-1.035)
[2018-11-20] MEDS ORDERED: Acetaminophen-Codeine 300-30mg TAB PO STA (18:39)
[2018-11-20] MEDS ORDERED: ACET/COD 300 MG/30 MG STARTER PACK 6 TAB BTL PO STA (18:39)
[2018-11-20 18:53] VITALS: BP 155/91; PULSE 84; TEMP 98
== END 2018-11-20 18:50 | disposition home or self-care (01) ==
LOC: EC 16:01
DX: K85.90 Acute pancreatitis without necrosis or infection, unspecified (principal); F17.200 Nicotine dependence, unspecified, uncomplicated; Z86.718 Personal history of other venous thrombosis and embolism; Z88.0 Allergy status to penicillin; Z90.721 Acquired absence of ovaries, unilateral
CPT/HCPCS: 36415; 80053; 82150; 83605; 83690; 83735; 84100; 85025; 81003; 87086; 74177; 99285; 96374; 96375; 96361; J2270; J2405; Q9967

== ENCOUNTER 2018-11-30 17:44 | Emergency (ER) | payer MEDICARE, OTHER ==
[2018-11-30 17:58] VITALS: TEMP 97.9
[2018-11-30] MEDS ORDERED: SODIUM CHLORIDE 0.9% 1,000 ML IV ONE (18:22)
[2018-11-30] MEDS ORDERED: METOCLOPRAMIDE 5 MG/ML 2 ML VIAL IVP STA (18:22)
[2018-11-30] MEDS ORDERED: diphenhydrAMINE 50 MG/ML 1 ML VIAL IVP STA (18:22)
[2018-11-30] MEDS ORDERED: KETOROLAC 30 MG/ML 1 ML VIAL IVP STA (18:22)
--- NOTE | 2018-11-30 18:35 | ED ---
Headache HPI - General Chief Complaint: Headache Stated Complaint: HEADACHE X 2 DAYS Time Seen by Provider: 11/30/18 18:04 Mode of arrival: ambulatory Limitations: no limitations - History of Present Illness Initial Comments: 48-year-old female patient with past medical history significant for pancreatitis and migraine headaches presents to the emergency department today for evaluation of headache 2 days. Patient states the headache is to the top of her head. Patient states that she is having some light sensitivity with this. States she has been nauseated but has not vomited. She denies any blurred or double vision. Denies any dizziness, numbness, tingling, or weakness to her extremities. She states this pattern is different from her usual migraines. States all medications are not working. The patient states that she did have an appointment with her primary care physician however he became ill so she is unable to be evaluated so she presented here for further evaluation. Patient denies any recent rash, fever, chills, shortness breath, chest pain, abdominal pain, diarrhea, constipation, back pain, hematuria, dysuria, urinary urgency, urinary frequency, or any other complaints. - Related Data Home Medications Medication Instructions Recorded Confirmed Aspirin/Acetaminophen/Caffeine 2 tab PO BID PRN 11/30/18 11/30/18 [Excedrin Migraine Caplet] Previous Rx's Medication Instructions Recorded Butalb/Acetaminophen/Caffeine 1 - 2 cap PO Q4HR #20 cap 11/30/18 [Fioricet 50-300-40 mg Capsule] Allergies Allergy/AdvReac Type Severity Reaction Status Date / Time Penicillins Allergy Unknown Verified 11/30/18 18:11 Childhood Review of Systems ROS Statement: Those systems with pertinent positive or pertinent negative responses have been documented in the HPI. ROS Other: All systems not noted in ROS Statement are negative. Past Medical History Past Medical History: Asthma, COPD, Deep Vein Thrombosis (DVT), Osteoarthritis ( OA) Additional Past Medical History / Comment(s): Bronchitis, chronic pain-back and cervical, migraines, DJD, DVT L leg in 2012, kidney stones. History of Any Multi-Drug Resistant Organisms: None Reported Past Surgical History: Orthopedic Surgery Additional Past Surgical History / Comment(s): right knee arthroscopic, R oophorectomy d/t cyst, bilateral cervical facet blocks. Past Anesthesia/Blood Transfusion Reactions: No Reported Reaction Past Psychological History: Anxiety, Depression Smoking Status: Current every day smoker Past Alcohol Use History: Rare Past Drug Use History: None Reported - Past Family History Mother Family Medical History: No Reported History Additional Family Medical History / Comment(s): Diverticulitis Father Family Medical History: Cancer, Congestive Heart Failure (CHF), Diabetes Mellitus, Eye Disorder, Hypertension Additional Family Medical History / Comment(s): Father was exposed to agent orange. He at the age of 46 from diabetic complications. General Exam Limitations: no limitations General appearance: alert, in no apparent distress, other (This is a well- developed, well-nourished adult female patient in no acute distress. Vital signs upon presentation are temperature 97.9F, pulse 109, respirations 20, blood pressure 125/88, pulse ox 98% on room air.) Eye exam: Present: normal appearance, PERRL, EOMI. Absent: scleral icterus, conjunctival injection, periorbital swelling ENT exam: Present: normal exam, normal oropharynx, mucous membranes moist Respiratory exam: Present: normal lung sounds bilaterally. Absent: respiratory distress, wheezes, rales, rhonchi, stridor Cardiovascular Exam: Present: regular rate, normal rhythm, normal heart sounds. Absent: systolic murmur, diastolic murmur, rubs, gallop, clicks GI/Abdominal exam: Present: soft, normal bowel sounds. Absent: distended, tenderness, guarding, rebound, rigid Neurological exam: Present: alert, oriented X3, CN II-XII intact, other ( Strength in all 4 extremities is 5/5.) Psychiatric exam: Present: normal affect, normal mood Skin exam: Present: warm, dry, intact, normal color. Absent: rash Course Vital Signs 11/30/18 11/30/18 11/30/18 17:53 20:30 21:42 Temperature 97.9 F Pulse Rate 109 H 95 84 Respiratory 20 20 18 Rate Blood Pressure 125/88 141/102 136/97 O2 Sat by Pulse 98 98 98 Oximetry Medical Decision Making - Medical Decision Making 48-year-old female patient percents to the emergency department today for evaluation of migraine headache. Physical examination was unremarkable. Patient is neurologically intact with no focal deficits. Patient was given migraine cocktail including IV fluids, Reglan, Benadryl, Toradol. Upon reevaluation patient reported no improvement in symptoms. We then administered pain medication, IV Decadron, and IV magnesium. Upon reevaluation patient reports improvement of her symptoms. This her pain is now 4 out of 10 on the pain scale. States she does feel comfortable being discharged home. She is out of her Fioricet at home and will refill this prescription. She is instructed to follow-up with her primary care physician for recheck as soon as possible. Return parameters were discussed in detail. She verbalizes understanding and agrees with this plan. Disposition Clinical Impression: Migraine headache Disposition: HOME SELF-CARE Condition: Good Instructions (If sedation given, give patient instructions): Migraine Headache (ED) Additional Instructions: Take medications as directed. Follow up with your primary care physician for recheck as soon as possible. Return to the emergency department immediately for any new, worsening, or concerning symptoms. Prescriptions: Butalb/Acetaminophen/Caffeine [Fioricet 50-300-40 mg Capsule] 1 - 2 cap PO Q4HR #20 cap Is patient prescribed a controlled substance at d/c from ED?: No Referrals: Jerman Darnell MD [Primary Care Provider] - 1-2 days Time of Disposition: 21:49
[2018-11-30] MEDS ORDERED: HYDROmorphone 0.5 MG/0.5 ML SYRINGE IVP STA (19:44)
[2018-11-30] MEDS ORDERED: MAGNESIUM SULFATE-D5W PMX 1 GM in DEXTROSE/WATER 1 100ML.BAG IVPB ONE (19:44)
[2018-11-30] MEDS ORDERED: DEXAMETHASONE SOD PHOSPHATE 10 MG/ML 1 ML VIAL IV STA (19:44)
[2018-11-30 21:43] VITALS: BP 136/97; PULSE 84; RESP 18
== END 2018-11-30 21:56 | disposition home or self-care (01) ==
LOC: EC 17:44
DX: G43.909 Migraine, unspecified, not intractable, without status migrainosus (principal); F17.200 Nicotine dependence, unspecified, uncomplicated; Z88.0 Allergy status to penicillin; Z86.718 Personal history of other venous thrombosis and embolism
CPT/HCPCS: 99283; 96365; 96375 ×5; 96361 ×2; J1200; J1100; J2765; J1885; J3475; J1170

== ENCOUNTER 2019-01-01 11:34 | Inpatient (IN) | payer MEDICARE, OTHER ==
[2019-01-01] MEDS ORDERED: IBUPROFEN 600 MG TAB PO PRN (13:27)
[2019-01-01] MEDS: SODIUM CHLORIDE 0.9% 1,000 ML IV SCH (14:42)
[2019-01-01 15:20] LABS: Anisocytosis Slight; Basophils % (A) 0 %; Eosinophils # (A) 0.1 k/uL (0-0.7); Eosinophils % (A) 1 %; HCT 42.7 % (34.0-46.0); HGB 13.3 gm/dL (11.4-16.0); Hypochromasia Moderate; Lymphocytes # (A) 2.8 k/uL (1.0-4.8); Lymphocytes % (A) 35 %; MCH 25.8 pg (25.0-35.0); MCHC 31.1 g/dL (31.0-37.0); MCV 82.9 fL (80.0-100.0); Mean Platelet Volume 6.6; Monocytes # (A) 0.4 k/uL (0-1.0); Monocytes % (A) 5 %; Neutrophils # (A) 4.4 k/uL (1.3-7.7); Neutrophils % (A) 56 %; Platelet Count 261 k/uL (150-450); RBC 5.15 m/uL (3.80-5.40); RDW 17.4 % (11.5-15.5); WBC 7.9 k/uL (3.8-10.6)
[2019-01-01 15:37] LABS: ALT 30 U/L (9-52); AST 20 U/L (14-36); Alkaline Phosphatase 93 U/L (38-126); Amylase 39 U/L (30-110); Anion Gap 8 mmol/L; Blood Urea Nitrogen 11 mg/dL (7-17); Carbon Dioxide 23 mmol/L (22-30); Chloride 107 mmol/L (98-107); Glucose 80 mg/dL (74-99); Lipase 118 U/L (23-300); Potassium 4.3 mmol/L (3.5-5.1); Sodium 138 mmol/L (137-145); Total Bilirubin 0.6 mg/dL (0.2-1.3); Total Protein 6.8 g/dL (6.3-8.2)
--- NOTE | 2019-01-01 16:12 | US ---
EXAMINATION TYPE: US abdomen complete DATE OF EXAM: 01/01/2019 COMPARISON: CT abdomen and pelvis November 20, 2018 CLINICAL HISTORY: abdominal pain. EXAM MEASUREMENTS: Liver Length: 16.1 cm Gallbladder Wall: 0.2 cm CBD: 0.3 cm CHD: 0.4 cm Spleen: 9.4 cm Right Kidney: 10.4 x 5.8 x 4.8 cm Left Kidney: 11.3 x 4.7 x 4.7 cm Pancreas: wnl Liver: wnl Gallbladder: wnl Evidence for sonographic Valente's sign: neg CBD: wnl CHD: wnl Spleen: wnl Right Kidney: wnl Left Kidney: wnl Upper IVC: wnl Abd Aorta: No AAA visualized on portions seen IVC is seen near hepatic dome. Aneurysm is visualized in its entirety and within normal limits. Visua lized portions of pancreas is unremarkable. Visualized portion of liver shows no mass or ductal dilat ation. Gallbladder is seen without shadowing gallstones. No suspicious wall thickening is evident. Ki dneys are symmetric and free of hydronephrosis. No suspicious masses are seen on images saved. Spleen is normal in size. IMPRESSION: No acute finding is evident.
[2019-01-01] MEDS: KETOROLAC 30 MG/ML 1 ML VIAL IVP PRN ×2 (16:26→21:36)
[2019-01-02] MEDS: traMADol 50 MG TAB PO PRN ×4 (00:16→20:00)
[2019-01-02] MEDS: NICOTINE 14MG/24HR PATCH TRANSDERM SCH ×2 (00:16→21:58)
[2019-01-02] MEDS: SODIUM CHLORIDE 0.9% 1,000 ML IV SCH ×2 (06:16→15:31)
[2019-01-02] MEDS: KETOROLAC 30 MG/ML 1 ML VIAL IVP PRN ×2 (08:24→17:15)
[2019-01-02 08:43] LABS: Anisocytosis Slight; Basophils % (A) 0 %; Eosinophils # (A) 0.1 k/uL (0-0.7); Eosinophils % (A) 1 %; HCT 41.8 % (34.0-46.0); HGB 12.7 gm/dL (11.4-16.0); Hypochromasia Moderate; Lymphocytes # (A) 2.1 k/uL (1.0-4.8); Lymphocytes % (A) 40 %; MCH 25.3 pg (25.0-35.0); MCHC 30.5 g/dL (31.0-37.0); MCV 82.8 fL (80.0-100.0); Mean Platelet Volume 6.2; Monocytes # (A) 0.3 k/uL (0-1.0); Monocytes % (A) 6 %; Neutrophils # (A) 2.6 k/uL (1.3-7.7); Neutrophils % (A) 50 %; Platelet Count 270 k/uL (150-450); RBC 5.04 m/uL (3.80-5.40); RDW 17.5 % (11.5-15.5); WBC 5.2 k/uL (3.8-10.6)
[2019-01-02 09:01] LABS: ALT 27 U/L (9-52); AST 17 U/L (14-36); Albumin 3.8 g/dL (3.5-5.0); Alkaline Phosphatase 77 U/L (38-126); Blood Urea Nitrogen 9 mg/dL (7-17); Calcium 8.7 mg/dL (8.4-10.2); Carbon Dioxide 25 mmol/L (22-30); Chloride 107 mmol/L (98-107); Glucose 123 mg/dL (74-99); Total Bilirubin 0.6 mg/dL (0.2-1.3); Total Protein 6.3 g/dL (6.3-8.2)
[2019-01-02 09:11] LABS: Anion Gap 5 mmol/L; Potassium 3.9 mmol/L (3.5-5.1); Sodium 137 mmol/L (137-145)
[2019-01-02] MEDS ORDERED: IV FLUID CONTINUATION 900 ML IV ONE (10:26)
--- NOTE | 2019-01-02 10:33 | P.GSCN ---
<Carolin Garcia - Last Filed: 01/02/19 10:25> History of Present Illness Consult date: 01/02/19 Reason for Consult: abdominal pain Requesting physician: Kota Fernandez History of present illness: CHIEF COMPLAINT: abdominal pain HISTORY OF PRESENT ILLNESS: 48-year-old female who was directly admitted from Dr. Fernandez's office yesterday secondary to abdominal pain. General surgery was consulted for further evaluation. The patient states she has been having abdominal pain for a couple months on and off. She reports the pain is generalized throughout her abdomen. She reports feeling "full" even after eating a small amount of food. Denies nausea or vomiting. Denies change in bowel habits. She had a bowel movement yesterday that was normal in characteristics for the patient. She denies bloody or dark stools. She reports coming to the ER in October and was diagnosed with pancreatitis at that time. PAST MEDICAL HISTORY: See list. PAST SURGICAL HISTORY: See list. MEDICATIONS: See list. ALLERGIES: See list. SOCIAL HISTORY: No illicit drug use. REVIEW OF SYSTEMS: CONSTITUTIONAL: Denies fever or chills. HEENT: Denies blurred vision, vision changes, or eye pain. Denies hemoptysis ENDOCRINE: Denies heat or cold intolerance. CARDIOVASCULAR: Denies chest pain or pressure. RESPIRATORY: No shortness of breath. GASTROINTESTINAL: reports abdominal pain. Denies nausea or vomiting. NEURO: Denies history of seizures. PSYCH: No depression or suicidal ideation HEMATOLOGIC: Denies bleeding disorders. LYMPHATIC: The patient denies any lumps and bumps around the neck. GENITOURINARY: Denies any blood in urine or increased urinary frequency. MUSCULOSKELETAL: Denies myalgias. Denies joint swelling. Denies decreased range of motion beyond patients baseline. SKIN: Denies pruitis. Denies rash. PHYSICAL EXAM: VITAL SIGNS: Currently stable. GENERAL: Well-developed in no acute distress. HEENT: No sclera icterus. Extraocular movements grossly intact. Moist buccal mucosa. Head is atraumatic, normocephalic. Hears conversational speech. No nasal drainage. NECK: Supple without lymphadenopathy. CHEST: Non-labored respirations and equal bilateral excursions. CARDIOVASCULAR: Regular rate with regular rhythm. Palpable 2+ radial pulses. ABDOMEN: Soft. Nondistended. Tenderness noted upon palpation. MUSCULOSKELETAL: No clubbing, cyanosis or edema. NEUROLOGIC: No focal or lateralizing signs. Cranial nerves II through XII grossly intact. PSYCH: Appropriate affect. Alert and oriented to person, place and time. SKIN: Well perfused. Good skin turgor. ASSESSMENT: 1. Abdominal pain x 2 months, etiology unclear 2. History of pancreatitis, October 2018 PLAN: 1. NPO 2. Patient to undergo EGD today per Dr. Laura Nurse practitioner note has been reviewed by physician. Signing provider agrees with the documented findings, assessment, and plan of care. Past Medical History Past Medical History: Asthma, COPD, Deep Vein Thrombosis (DVT), Osteoarthritis ( OA) Additional Past Medical History / Comment(s): Acute hypoxic respiratory failure secondary to COPD, bronchitis, tachycardia with RAAD, pt states she has recently been told she may have pancreatitis or a benign abdominal tumor, chronic pain- back and cervical, migraines, DJD, DVT L leg in 2012, kidney stones. History of Any Multi-Drug Resistant Organisms: None Reported Past Surgical History: Orthopedic Surgery Additional Past Surgical History / Comment(s): right knee arthroscopic, R oophorectomy d/t cyst, bilateral cervical facet blocks and back injections, colonoscopy with benign polypectomy 2-3 yrs ago. Past Anesthesia/Blood Transfusion Reactions: No Reported Reaction Smoking Status: Current every day smoker - Past Family History Mother Family Medical History: No Reported History Additional Family Medical History / Comment(s): Diverticulitis Father Family Medical History: Cancer, Congestive Heart Failure (CHF), Diabetes Mellitus, Eye Disorder, Hypertension Additional Family Medical History / Comment(s): Father was exposed to agent orange. He at the age of 46 from diabetic complications. Medications and Allergies Home Medications Medication Instructions Recorded Confirmed Type Ibuprofen [Motrin Ib] 400 - 600 mg PO Q6H PRN 01/01/19 01/01/19 History Allergies Allergy/AdvReac Type Severity Reaction Status Date / Time Penicillins Allergy Unknown Verified 01/01/19 12:55 Childhood Surgical - Exam Vital Signs Resp 18 01/01/19 14:06 Results - Labs 01/02/19 08:31 01/02/19 08:31 Abnormal Lab Results - Last 24 Hours (Table) 01/01/19 01/02/19 01/02/19 Range/Units 14:38 08:31 08:31 MCHC 30.5 L (31.0-37.0) g/dL RDW 17.4 H 17.5 H (11.5-15.5) % Glucose 123 H (74-99) mg/dL Diabetes panel 01/01/19 01/02/19 Range/Units 14:38 08:31 Sodium 138 137 (137-145) mmol/L Potassium 4.3 3.9 (3.5-5.1) mmol/L Chloride 107 107 (98-107) mmol/L Carbon Dioxide 23 25 (22-30) mmol/L BUN 11 9 (7-17) mg/dL Creatinine 0.60 0.61 (0.52-1.04) mg/dL Glucose 80 123 H (74-99) mg/dL Calcium 9.0 8.7 (8.4-10.2) mg/dL AST 20 17 (14-36) U/L ALT 30 27 (9-52) U/L Alkaline Phosphatase 93 77 (38-126) U/L Total Protein 6.8 6.3 (6.3-8.2) g/dL Albumin 4.0 3.8 (3.5-5.0) g/dL Calcium panel 01/01/19 01/02/19 Range/Units 14:38 08:31 Calcium 9.0 8.7 (8.4-10.2) mg/dL Albumin 4.0 3.8 (3.5-5.0) g/dL Pituitary panel 01/01/19 01/02/19 Range/Units 14:38 08:31 Sodium 138 137 (137-145) mmol/L Potassium 4.3 3.9 (3.5-5.1) mmol/L Chloride 107 107 (98-107) mmol/L Carbon Dioxide 23 25 (22-30) mmol/L BUN 11 9 (7-17) mg/dL Creatinine 0.60 0.61 (0.52-1.04) mg/dL Glucose 80 123 H (74-99) mg/dL Calcium 9.0 8.7 (8.4-10.2) mg/dL Adrenal panel 01/01/19 01/02/19 Range/Units 14:38 08:31 Sodium 138 137 (137-145) mmol/L Potassium 4.3 3.9 (3.5-5.1) mmol/L Chloride 107 107 (98-107) mmol/L Carbon Dioxide 23 25 (22-30) mmol/L BUN 11 9 (7-17) mg/dL Creatinine 0.60 0.61 (0.52-1.04) mg/dL Glucose 80 123 H (74-99) mg/dL Calcium 9.0 8.7 (8.4-10.2) mg/dL Total Bilirubin 0.6 0.6 (0.2-1.3) mg/dL AST 20 17 (14-36) U/L ALT 30 27 (9-52) U/L Alkaline Phosphatase 93 77 (38-126) U/L Total Protein 6.8 6.3 (6.3-8.2) g/dL Albumin 4.0 3.8 (3.5-5.0) g/dL <Oc Laura - Last Filed: 01/02/19 11:06> Surgical - Exam Vital Signs Resp 18 01/01/19 14:06 Results - Labs 01/02/19 08:31 01/02/19 08:31 Abnormal Lab Results - Last 24 Hours (Table) 01/01/19 01/02/19 01/02/19 Range/Units 14:38 08:31 08:31 MCHC 30.5 L (31.0-37.0) g/dL RDW 17.4 H 17.5 H (11.5-15.5) % Glucose 123 H (74-99) mg/dL Diabetes panel 01/01/19 01/02/19 Range/Units 14:38 08:31 Sodium 138 137 (137-145) mmol/L Potassium 4.3 3.9 (3.5-5.1) mmol/L Chloride 107 107 (98-107) mmol/L Carbon Dioxide 23 25 (22-30) mmol/L BUN 11 9 (7-17) mg/dL Creatinine 0.60 0.61 (0.52-1.04) mg/dL Glucose 80 123 H (74-99) mg/dL Calcium 9.0 8.7 (8.4-10.2) mg/dL AST 20 17 (14-36) U/L ALT 30 27 (9-52) U/L Alkaline Phosphatase 93 77 (38-126) U/L Total Protein 6.8 6.3 (6.3-8.2) g/dL Albumin 4.0 3.8 (3.5-5.0) g/dL Calcium panel 01/01/19 01/02/19 Range/Units 14:38 08:31 Calcium 9.0 8.7 (8.4-10.2) mg/dL Albumin 4.0 3.8 (3.5-5.0) g/dL Pituitary panel 01/01/19 01/02/19 Range/Units 14:38 08:31 Sodium 138 137 (137-145) mmol/L Potassium 4.3 3.9 (3.5-5.1) mmol/L Chloride 107 107 (98-107) mmol/L Carbon Dioxide 23 25 (22-30) mmol/L BUN 11 9 (7-17) mg/dL Creatinine 0.60 0.61 (0.52-1.04) mg/dL Glucose 80 123 H (74-99) mg/dL Calcium 9.0 8.7 (8.4-10.2) mg/dL Adrenal panel 01/01/19 01/02/19 Range/Units 14:38 08:31 Sodium 138 137 (137-145) mmol/L Potassium 4.3 3.9 (3.5-5.1) mmol/L Chloride 107 107 (98-107) mmol/L Carbon Dioxide 23 25 (22-30) mmol/L BUN 11 9 (7-17) mg/dL Creatinine 0.60 0.61 (0.52-1.04) mg/dL Glucose 80 123 H (74-99) mg/dL Calcium 9.0 8.7 (8.4-10.2) mg/dL Total Bilirubin 0.6 0.6 (0.2-1.3) mg/dL AST 20 17 (14-36) U/L ALT 30 27 (9-52) U/L Alkaline Phosphatase 93 77 (38-126) U/L Total Protein 6.8 6.3 (6.3-8.2) g/dL Albumin 4.0 3.8 (3.5-5.0) g/dL Assessment and Plan Plan: Patient has had complaints of right quadrant epigastric pain. This has been going on for several months. Patient will undergo EGD today. If the EGD is normal she will be scheduled for HIDA scan to evaluate for possible biliary dysfunction.
[2019-01-02] MEDS ORDERED: LIDOCAINE 1% INJ 10MG/ML (20 ML MDV) ONE (11:01)
[2019-01-02] MEDS ORDERED: PROPOFOL 10 MG/ML 20 ML VIAL IV ONE (11:01)
[2019-01-02] MEDS ORDERED: fentaNYL (PF) 50 MCG/ML 2 ML AMP ONE (11:01)
--- NOTE | 2019-01-02 11:16 | P.OP ---
Date of Procedure: 01/02/19 Preoperative Diagnosis: Epigastric pain Postoperative Diagnosis: Antral gastritis Mild duodenitis Procedure(s) Performed: EGD Anesthesia: MAC Surgeon: Oc Laura Pathology: other (Antrum, duodenum) Condition: stable Disposition: PACU Description of Procedure: The patient's placed on the endoscopy table in the lateral position she received IV sedation. The gastroscope placed oropharynx and passed into the esophagus and into the stomach. The scope was then placed through the pylorus. The first and second portion of the duodenum appeared to be. A biopsies performed. The scope was then brought back the antrum this was mildly inflamed. A biopsies performed. The scope was then retroflexed and the remainder of the stomach appeared normal. There was no evidence of a hiatal hernia. The GE junction was at 40 cm. The distal esophagus appeared normal. The proximal esophagus appeared normal. Scope was withdrawn for patient.
--- NOTE | 2019-01-02 15:06 | NM ---
EXAMINATION TYPE: NM hepatobiliary w CCK DATE OF EXAM: 01/02/2019 COMPARISON: Ultrasound abdomen 01/01/2019 HISTORY: Epigastric pain TECHNIQUE: After the intravenous administration of 4.71 mCi Tc 99m Mebrofenin hepatobiliary scintigra phy is performed. Immediate images post injection. FINDINGS: There is satisfactory initial accumulation of tracer by the liver. The gallbladder is visualized wit hin 12 minutes. The small bowel activity is noted within 20 minutes. At one hour CCK was administer ed, patient was injected with 1.6 mcg of Kinevac, and gallbladder ejection fraction is calculated at 0 %, abnormal. Therefore there is no scintigraphic evidence of cystic or common bile duct obstructio n to suggest acute cholecystitis or gallbladder dyskinesia. IMPRESSION: Abnormal low gallbladder ejection fraction
--- NOTE | 2019-01-02 16:11 | HP ---
HISTORY AND PHYSICAL CHIEF COMPLAINT: [id number] white female, admitted for acute abdominal pain after months and months of pain, worsening to the point she is unable to eat small amounts of food due to nausea, vomiting. She was admitted for acute workup for acute abdominal pain. MEDICATIONS: See old list. SURGICAL HISTORY: See old list. MEDICATIONS: See list. ALLERGIES: See list. SOCIAL HISTORY: No drugs. No alcohol. FAMILY HISTORY: Mother with diverticulitis. Father with CHF, cancer, diabetes mellitus. REVIEW OF SYSTEMS: Fourteen-point review of systems negative except for abdominal pain, nausea, vomiting, some diarrhea. PHYSICAL EXAMINATION: Vital signs stable. CARDIOVASCULAR: S1, S2. LUNGS: Clear. GI: Tender to palpation with mild guarding in the epigastric area and right upper quadrant. Normal bowel sounds. No mass or organomegaly. Negative hernias. PSYCH: Fair mood and affect. SKIN: Normal skin turgor. Labs were reviewed. ASSESSMENT: 1. Acute abdominal pain. Rule out peptic ulcer disease versus cholecystitis. 2. History of prior pancreatitis. 3. Possible irritable bowel syndrome. 4. Possible anxiety. 5. Asthma. 6. Chronic obstructive pulmonary disease. 7. Deep venous thrombosis. 8. Osteoarthritis. 9. History of cervical facet blocks. 10.Benign polypectomy in the colon 2 or 3 years ago. 11.Nicotine addiction. PLAN: Will obtain CT of the abdomen and pelvis. Possible EGD and possible HIDA scan if CT scan of the abdomen is normal. MMODL / IJN: [id number] /
[2019-01-02 20:39] LABS: Gliadin AB IgA, Unit 1.6 U/mL
[2019-01-03] MEDS: KETOROLAC 30 MG/ML 1 ML VIAL IVP PRN (06:18)
[2019-01-03] MEDS: SODIUM CHLORIDE 0.9% 1,000 ML IV SCH ×2 (08:34→17:50)
[2019-01-03] MEDS: traMADol 50 MG TAB PO PRN ×2 (09:17→19:16)
[2019-01-03] MEDS ORDERED: IV FLUID CONTINUATION 1,000 ML IV ONE (09:55)
[2019-01-03] MEDS ORDERED: ONDANSETRON 4 MG/2 ML VIAL IVP ONE (10:29)
[2019-01-03] MEDS ORDERED: DEXAMETHASONE SOD PHOSPHATE 10 MG/ML 1 ML VIAL IV ONE (10:29)
--- NOTE | 2019-01-03 10:35 | P.PN ---
Progress Note - Text Progress Note Date: 01/03/19 The patient's HIDA scan shows a 0% ejection fraction consistent with chronic cholecystitis. Patient will undergo laparoscopic cholecystectomy today.
[2019-01-03] MEDS ORDERED: NEOSTIGMINE 1 MG/ML 10 ML VIAL ONE (10:56)
[2019-01-03] MEDS ORDERED: LIDOCAINE 1% INJ 10MG/ML (20 ML MDV) ONE (10:56)
[2019-01-03] MEDS ORDERED: PROPOFOL 10 MG/ML 20 ML VIAL IV ONE (10:56)
[2019-01-03] MEDS ORDERED: HYDROmorphone (PF) 1 MG/ML ONE (10:56)
[2019-01-03] MEDS ORDERED: ROCURONIUM BROMIDE 10 MG/ML 10 ML VIAL IV ONE (10:56)
[2019-01-03] MEDS ORDERED: MIDAZOLAM 2 MG/2 ML VIAL ONE (10:56)
[2019-01-03] MEDS ORDERED: KETOROLAC 30 MG/ML 1 ML VIAL ONE (10:56)
[2019-01-03] MEDS ORDERED: GLYCOPYRROLATE 0.2 MG/ML 2 ML VIAL ONE (10:56)
[2019-01-03] MEDS ORDERED: SUCCINYLCHOLINE CHLORIDE 100 MG/5 ML SYR IV ONE (10:56)
[2019-01-03] MEDS ORDERED: fentaNYL (PF) 50 MCG/ML 2 ML AMP ONE (10:56)
[2019-01-03] MEDS ORDERED: LACTATED RINGERS 1,000 ML IV ONE (11:05)
[2019-01-03] MEDS ORDERED: BUPIVACAIN-EPI 0.25%-1:200,000 30 ML VIAL SQ ONE ×2 (11:22→11:25)
[2019-01-03] MEDS ORDERED: ceFAZolin 1,000 MG/50 ML BAG (PMX) IVPB ONE (11:24)
--- NOTE | 2019-01-03 11:47 | P.OP ---
Date of Procedure: 01/03/19 Preoperative Diagnosis: Cholecystitis Postoperative Diagnosis: Cholecystitis Procedure(s) Performed: Laparoscopic cholecystectomy Anesthesia: VERNON Surgeon: Oc Laura Estimated Blood Loss (ml): 5 Pathology: other (Gallbladder) Condition: stable Disposition: PACU Description of Procedure: The patient was placed on the operating table. The patient received a general endotracheal tube anesthesia. The patients abdomen was prepped and draped in the usual sterile fashion. Through an infraumbilical stab incision, the fascia of the anterior abdominal wall was grasped with a pair of Kochers and then the Veress needle was placed in the peritoneal cavity. Position of the Veress needle was confirmed with positive drop test. The abdomen was then insufflated. After adequate insufflation, the 10 mm trocar was placed in the peritoneal cavity. Following this the laparoscope was placed in the peritoneal cavity. The patient was placed in the head-up, right side up position and then a 5 mm trocar was placed in the right lateral and right subcostal position under direct visualization. A 8 mm trocar was placed in the epigastric position. The gallbladder was grasped in the fundus and infundibulum. Traction on the gallbladder was placed in the lateral and the cephalad positions. The triangle of Calot was visualized.. The cystic duct was bluntly dissected until the union of the cystic duct and common bile duct was seen. The cystic duct was then divided and sealed with the Harmonic scissors. A PDS Endoloop was then placed throughout the cystic duct stump. The cystic artery divided and sealed with the Harmonic scissors. The gallbladder was then removed from the liver bed using Harmonic scissors. The gallbladder was then extracted through the epigastric port site. Operative field was checked for any bleeding spots and Harmonic scissors was used to coagulate the liver bed. The abdomen was irrigated. The trocars were removed. The skin was closed using interrupted 3-0 Vicryl suture. Dermabond dressing were applied. The patient tolerated the procedure well.
[2019-01-03] MEDS: HYDROcodone/APAP 7.5-325MG 1 EACH TAB PO PRN ×2 (14:35→20:33)
[2019-01-03] MEDS: NICOTINE 14MG/24HR PATCH TRANSDERM SCH (20:34)
[2019-01-04] MEDS: KETOROLAC 30 MG/ML 1 ML VIAL IVP PRN (00:03)
[2019-01-04] MEDS: HYDROcodone/APAP 7.5-325MG 1 EACH TAB PO PRN (05:53)
[2019-01-04 08:15] VITALS: BP 150/87; PULSE 78; RESP 14; TEMP 98.2
--- NOTE | 2019-01-04 10:25 | P.PN ---
Subjective Progress Note Date: 01/04/19 CHIEF COMPLAINT: abdominal pain HISTORY OF PRESENT ILLNESS: Patient is status post laparoscopic cholecystectomy. Patient is doing well this morning. Her pain is tolerable. She denies nausea or vomiting. She is anxious to be discharged home today. PHYSICAL EXAM: VITAL SIGNS: Currently stable. GENERAL: Well-developed in no acute distress. HEENT: No sclera icterus. Extraocular movements grossly intact. Moist buccal mucosa. Head is atraumatic, normocephalic. Hears conversational speech. No nasal drainage. NECK: Supple without lymphadenopathy. CHEST: Non-labored respirations and equal bilateral excursions. CARDIOVASCULAR: Regular rate with regular rhythm. Palpable 2+ radial pulses. ABDOMEN: Soft. Nondistended. Dressings clean and dry without drainage MUSCULOSKELETAL: No clubbing, cyanosis or edema. NEUROLOGIC: No focal or lateralizing signs. Cranial nerves II through XII grossly intact. PSYCH: Appropriate affect. Alert and oriented to person, place and time. SKIN: Well perfused. Good skin turgor. ASSESSMENT: 1. Abdominal pain x 2 months 2. History of pancreatitis, October 2018 3. Status post laparoscopic cholecystectomy PLAN: Patient is stable for discharge home today from a surgical standpoint. She is to follow up with Dr. Laura within 1 week. Nurse practitioner note has been reviewed by physician. Signing provider agrees with the documented findings, assessment, and plan of care. Objective - Vital Signs Vital signs: Vital Signs Temp 98.2 F 01/04/19 07:28 Pulse 78 01/04/19 07:28 Resp 14 01/04/19 07:28 BP 150/87 01/04/19 07:28 Pulse Ox 93 L 01/04/19 07:28 Intake & Output 01/03/19 01/04/19 01/04/19 18:59 06:59 18:59 Intake Total 1200 300 Output Total 5 Balance 1195 300 Intake: IV 1200 Sodium Chloride 0.9% 1, 600 000 ml @ 75 mls/hr IV . [id number] Rx#:[id number] Oral 300 Output: Estimated Blood Loss 5 Other: Voiding Method Toilet # Voids 4 - Labs CBC & Chem 7: 01/02/19 08:31 01/02/19 08:31
[2019-01-04] MEDS: SODIUM CHLORIDE 0.9% 1,000 ML IV SCH (11:32)
== END 2019-01-04 12:01 | disposition home or self-care (01) | DRG 419 ==
LOC: 4MS4W 12:04 → OBSVTOIN 01-03 15:50 → 4SSUR 01-03 18:29
PROVIDERS: ADMIT Family Medicine; ATTEND Family Medicine
PROC: 0DB78ZX Excision of Stomach, Pylorus, Via Natural or Artificial Opening Endoscopic, Diagnostic (ICD-10-PCS; 2019-01-02)
PROC: 0FT44ZZ Resection of Gallbladder, Percutaneous Endoscopic Approach (ICD-10-PCS; principal; 2019-01-03 07:30)
DX: K81.1 Chronic cholecystitis (principal); K29.70 Gastritis, unspecified, without bleeding; K29.80 Duodenitis without bleeding; M19.90 Unspecified osteoarthritis, unspecified site; J44.9 Chronic obstructive pulmonary disease, unspecified; F17.210 Nicotine dependence, cigarettes, uncomplicated; Z86.718 Personal history of other venous thrombosis and embolism; Z87.442 Personal history of urinary calculi; Z90.721 Acquired absence of ovaries, unilateral; Z87.19 Personal history of other diseases of the digestive system; Z83.79 Family history of other diseases of the digestive system; Z83.3 Family history of diabetes mellitus; Z82.49 Family history of ischemic heart disease and other diseases of the circulatory system; Z84.89 Family history of other specified conditions
CPT/HCPCS: 43239; 76700; 78227; 80053; 81025; 82150; 83516; 83690; 85025; 88304; 88305

== ENCOUNTER 2019-05-30 | Emergency (ER) | payer MEDICARE, OTHER ==
--- NOTE | 2019-05-30 15:53 | ED ---
General Adult HPI - General Chief complaint: Skin/Abscess/Foreign Body Stated complaint: Bug bites Time Seen by Provider: 05/30/19 15:35 Source: patient, RN notes reviewed Mode of arrival: ambulatory Limitations: no limitations - History of Present Illness Initial comments: Patient is a pleasant 49-year-old female presenting to the emergency Department with complaints of bug bites. Onset of symptoms was 6 days ago from camping Patient states areas have been itchy since that time. Patient has tried anti- itch spray without relief. Patient has been itching. No fevers. No history of chronic problems similar to this. Patient has noticed some redness. - Related Data Home Medications Medication Instructions Recorded Confirmed Ibuprofen [Motrin Ib] 400 - 600 mg PO Q6H PRN 01/01/19 05/30/19 Previous Rx's Medication Instructions Recorded HYDROcodone/APAP 7.5-325MG [[place] 1 tab PO Q6HR PRN 3 Days #12 tab 01/04/19 7.5-325] Sulfamethox-Tmp 800-160Mg [Bactrim 2 each PO Q12HR #40 tab 05/30/19 DS 800-160 mg] predniSONE 40 mg PO DAILY #6 tab 05/30/19 Allergies Allergy/AdvReac Type Severity Reaction Status Date / Time Penicillins Allergy Unknown Verified 05/30/19 14:38 Childhood Review of Systems ROS Statement: Those systems with pertinent positive or pertinent negative responses have been documented in the HPI. ROS Other: All systems not noted in ROS Statement are negative. Constitutional: Denies: fever Eyes: Denies: eye pain ENT: Denies: ear pain Respiratory: Denies: cough Cardiovascular: Denies: chest pain Endocrine: Denies: fatigue Gastrointestinal: Denies: abdominal pain Genitourinary: Denies: dysuria Musculoskeletal: Denies: back pain Skin: Reports: as per HPI, rash, lesions Neurological: Denies: weakness Past Medical History Past Medical History: Asthma, COPD, Deep Vein Thrombosis (DVT), Osteoarthritis (OA) Additional Past Medical History / Comment(s): Acute hypoxic respiratory failure secondary to COPD, bronchitis, tachycardia with RAAD, pt states she has recently been told she may have pancreatitis or a benign abdominal tumor, chronic pain- back and cervical, migraines, DJD, DVT L leg in 2013, kidney stones. History of Any Multi-Drug Resistant Organisms: None Reported Past Surgical History: Orthopedic Surgery Additional Past Surgical History / Comment(s): right knee arthroscopic, R oophorectomy d/t cyst, bilateral cervical facet blocks and back injections, colonoscopy with benign polypectomy 2-3 yrs ago. Past Anesthesia/Blood Transfusion Reactions: No Reported Reaction Past Psychological History: Anxiety Smoking Status: Current every day smoker Past Alcohol Use History: None Reported Past Drug Use History: None Reported - Past Family History Mother Family Medical History: No Reported History Additional Family Medical History / Comment(s): Diverticulitis Father Family Medical History: Cancer, Congestive Heart Failure (CHF), Diabetes Mellitus, Eye Disorder, Hypertension Additional Family Medical History / Comment(s): Father was exposed to agent orange. He at the age of 46 from diabetic complications. General Exam Limitations: no limitations General appearance: alert, in no apparent distress Head exam: Present: atraumatic Eye exam: Present: normal appearance, PERRL ENT exam: Present: normal oropharynx Neck exam: Present: normal inspection Respiratory exam: Present: normal lung sounds bilaterally Cardiovascular Exam: Present: regular rate, normal rhythm Extremities exam: Present: normal inspection Neurological exam: Present: alert Psychiatric exam: Present: normal affect, normal mood Skin exam: Present: other (Patient does have multiple lesions, one on the upper back, 5 on the left thigh, 5 on the right arm and a couple of other ones ranging between a couple millimeters and 3 or 4 cm. These areas have erythematous base with central eschar.) Course Vital Signs 05/30/19 14:33 Temperature 98.1 F Pulse Rate 108 H Respiratory 16 Rate Blood Pressure 154/95 O2 Sat by Pulse 96 Oximetry Medical Decision Making - Medical Decision Making Patient does have history exam consistent with bug bites. This point there is concern for infection and several of the bites and patient will be covered with antibiotics. Patient is made aware of this and need for follow-up. Disposition Clinical Impression: Infected insect bite Disposition: HOME SELF-CARE Condition: Stable Instructions (If sedation given, give patient instructions): Abscess (ED), Insect Bite or Sting (ED) Additional Instructions: Please do follow-up with your primary care physician in the next couple of days for recheck. [id number] triple antibiotic ointment to affected areas. Return for fever, increased redness, increased size, worsening symptoms or any other concerns. Your prescription has been sent to [facility]. Prescriptions: Sulfamethox-Tmp 800-160Mg [Bactrim DS 800-160 mg] 2 each PO Q12HR #40 tab predniSONE 40 mg PO DAILY #6 tab Is patient prescribed a controlled substance at d/c from ED?: No Referrals: Kota Fernandez MD [Primary Care Provider] - 1-2 days Time of Disposition: 15:53
== END 2019-05-30 16:00 | disposition home or self-care (01) ==
CPT/HCPCS: 99282

== ENCOUNTER 2019-06-02 14:34 | Emergency (ER) | payer MEDICARE, OTHER ==
[2019-06-02 14:51] VITALS: BP 129/92; PULSE 112; RESP 18; TEMP 97.9
--- NOTE | 2019-06-02 15:32 | ED ---
General Adult HPI - General Chief complaint: Skin/Abscess/Foreign Body Stated complaint: bug bites/arm swelling-revisit Time Seen by Provider: 06/02/19 14:54 Source: patient Mode of arrival: ambulatory Limitations: no limitations - History of Present Illness Initial comments: Patient is a 49-year-old female presenting to the emergency department with a [facility] complaint of bug bites. Patient reports that she was recently in the ED for multiple lesions on her arms and legs for which she is treated with steroids and antibiotics. Patient reports recently a rash on the posterior aspect of her right forearm. Patient reports she was walking in the [place] when she noticed a possible insect or foreign body on the right hand. Patient reports using Neospo rin. Patient denies any fevers, chills or night sweats. Patient reports that the rash is itchy. - Related Data Home Medications Medication Instructions Recorded Confirmed Ibuprofen [Motrin Ib] 400 - 600 mg PO Q6H PRN 01/01/19 05/30/19 Previous Rx's Medication Instructions Recorded HYDROcodone/APAP 7.5-325MG [[place] 1 tab PO Q6HR PRN 3 Days #12 tab 01/04/19 7.5-325] Sulfamethox-Tmp 800-160Mg [Bactrim 2 each PO Q12HR #40 tab 05/30/19 DS 800-160 mg] predniSONE 40 mg PO DAILY #6 tab 05/30/19 Allergies Allergy/AdvReac Type Severity Reaction Status Date / Time Penicillins Allergy Unknown Verified 06/02/19 14:51 Childhood Review of Systems ROS Statement: Those systems with pertinent positive or pertinent negative responses have been documented in the HPI. ROS Other: All systems not noted in ROS Statement are negative. Past Medical History Past Medical History: Asthma, COPD, Deep Vein Thrombosis (DVT), Osteoarthritis (OA) Additional Past Medical History / Comment(s): Acute hypoxic respiratory failure secondary to COPD, bronchitis, tachycardia with RAAD, pt states she has recently been told she may have pancreatitis or a benign abdominal tumor, chronic pain- back and cervical, migraines, DJD, DVT L leg in 2012, kidney stones. History of Any Multi-Drug Resistant Organisms: None Reported Past Surgical History: Orthopedic Surgery Additional Past Surgical History / Comment(s): right knee arthroscopic, R oophorectomy d/t cyst, bilateral cervical facet blocks and back injections, colonoscopy with benign polypectomy 2-3 yrs ago. Past Anesthesia/Blood Transfusion Reactions: No Reported Reaction Past Psychological History: Anxiety Smoking Status: Current every day smoker Past Alcohol Use History: None Reported Past Drug Use History: None Reported - Past Family History Mother Family Medical History: No Reported History Additional Family Medical History / Comment(s): Diverticulitis Father Family Medical History: Cancer, Congestive Heart Failure (CHF), Diabetes Mellitus, Eye Disorder, Hypertension Additional Family Medical History / Comment(s): Father was exposed to agent orange. He at the age of 46 from diabetic complications. General Exam Limitations: no limitations General appearance: alert, in no apparent distress Head exam: Present: atraumatic, normocephalic, normal inspection Eye exam: Present: normal appearance, PERRL, EOMI Pupils: Present: normal accommodation ENT exam: Present: normal exam, mucous membranes moist, normal external ear exam Neck exam: Present: normal inspection Respiratory exam: Present: normal lung sounds bilaterally Cardiovascular Exam: Present: regular rate, normal rhythm, normal heart sounds Extremities exam: Present: normal inspection, full ROM, other (+2 ulnar radial pulses) Back exam: Present: normal inspection, full ROM Neurological exam: Present: alert, oriented X3 Psychiatric exam: Present: normal affect, normal mood Skin exam: Present: warm, intact, normal color, rash (Multiple erythematous lesions on bilateral upper and lower extremities. No rash noted on the poste rior aspect of the right forearm. Neosporin residue noted.) Course Vital Signs 06/02/19 14:49 Temperature 97.9 F Pulse Rate 112 H Respiratory 18 Rate Blood Pressure 129/92 O2 Sat by Pulse 96 Oximetry Medical Decision Making - Medical Decision Making Patient is a 49-year-old male presenting to the emergency department with a chief complaint of a bye-bye. Patient is already being treated with a steroid and antibiotics for the other lesions which she reports are improving. Based on physical examination I could not visualize any rashes in the forearm. Patient reports that could be generous paranoid due to her other lesions. Patient advised to follow-up with primary care for further management. Strict return parameters were thoroughly discussed the patient was understanding and agreeable. Case discussed with physician. Disposition Clinical Impression: Rash Disposition: HOME SELF-CARE Condition: Stable Instructions (If sedation given, give patient instructions): Acute Rash (ED) Additional Instructions: Case follow with primary care. Stay away from [place] areas. Please return to emergency department if symptoms worsen. Is patient prescribed a controlled substance at d/c from ED?: No Referrals: Kota Fernandez MD [Primary Care Provider] - 1-2 days Time of Disposition: 15:32
== END 2019-06-02 15:51 | disposition home or self-care (01) ==
LOC: EC 14:34
DX: R21 Rash and other nonspecific skin eruption (principal); F17.200 Nicotine dependence, unspecified, uncomplicated; Z88.0 Allergy status to penicillin
CPT/HCPCS: 99282

== ENCOUNTER 2019-06-20 18:05 | Observation (INO) | payer MEDICARE, OTHER ==
--- NOTE | 2019-06-20 18:50 | ED ---
General Adult HPI - General Chief complaint: Skin/Abscess/Foreign Body Stated complaint: Bites all over body Time Seen by Provider: 06/20/19 18:16 Source: patient Mode of arrival: ambulatory Limitations: no limitations - History of Present Illness Initial comments: Patient is a 49-year-old female presenting to emergency Department with a chief complaint of bug bites. Patient reports she developed lesions throughout her body approximately 1 month ago and she was treated with antibiotics and steroids. Patient reports going to emergency department where she was not discharged with any medication. She reports that she saw her primary care, Dr. Fernandez who suggested that she come to the emergency department and be admitted for further management. The primary care is going to personally see the patient in the hospital. Patient reports the lesions are located on bilateral lower extremities as well as the right arm. Patient also reports a lesion on the back and chest. Patient reports over the last week she has developed a new rash which are smaller in size measuring approximately 5 mm. Patient reports the new rash is itchy but the large lesions are not. Patient denies any fever or night sweats or chills. Patient reports all her vaccinations are up-to-date. - Related Data Home Medications Medication Instructions Recorded Confirmed Ibuprofen [Motrin Ib] 400 - 600 mg PO Q6H PRN 01/01/19 05/30/19 Previous Rx's Medication Instructions Recorded HYDROcodone/APAP 7.5-325MG [[place] 1 tab PO Q6HR PRN 3 Days #12 tab 01/04/19 7.5-325] Sulfamethox-Tmp 800-160Mg [Bactrim 2 each PO Q12HR #40 tab 05/30/19 DS 800-160 mg] predniSONE 40 mg PO DAILY #6 tab 05/30/19 Allergies Allergy/AdvReac Type Severity Reaction Status Date / Time Penicillins Allergy Unknown Verified 06/20/19 18:14 Childhood Review of Systems ROS Statement: Those systems with pertinent positive or pertinent negative responses have been documented in the HPI. ROS Other: All systems not noted in ROS Statement are negative. Past Medical History Past Medical History: Asthma, COPD, Deep Vein Thrombosis (DVT), Osteoarthritis (OA) Additional Past Medical History / Comment(s): Acute hypoxic respiratory failure secondary to COPD, bronchitis, tachycardia with RAAD, pt states she has recently been told she may have pancreatitis or a benign abdominal tumor, chronic pain- back and cervical, migraines, DJD, DVT L leg in 2013, kidney stones. History of Any Multi-Drug Resistant Organisms: None Reported Past Surgical History: Orthopedic Surgery Additional Past Surgical History / Comment(s): right knee arthroscopic, R oophorectomy d/t cyst, bilateral cervical facet blocks and back injections, colonoscopy with benign polypectomy 2-3 yrs ago. Past Anesthesia/Blood Transfusion Reactions: No Reported Reaction Past Psychological History: Anxiety Smoking Status: Current every day smoker Past Alcohol Use History: None Reported Past Drug Use History: None Reported - Past Family History Mother Family Medical History: No Reported History Additional Family Medical History / Comment(s): Diverticulitis Father Family Medical History: Cancer, Congestive Heart Failure (CHF), Diabetes Mellitus, Eye Disorder, Hypertension Additional Family Medical History / Comment(s): Father was exposed to agent orange. He at the age of 46 from diabetic complications. General Exam Limitations: no limitations General appearance: alert, in no apparent distress Head exam: Present: atraumatic, normocephalic, normal inspection Eye exam: Present: normal appearance, PERRL, EOMI ENT exam: Present: normal exam, mucous membranes moist, normal external ear exam Neck exam: Present: normal inspection, full ROM Respiratory exam: Present: normal lung sounds bilaterally Cardiovascular Exam: Present: regular rate, normal rhythm, normal heart sounds Extremities exam: Present: normal inspection, full ROM Back exam: Present: normal inspection, full ROM Neurological exam: Present: alert, oriented X3 Psychiatric exam: Present: normal affect, normal mood Skin exam: Present: warm, intact, normal color, rash (Multiple circular lesions throughout the body measuring approximately 5 cm in diameter with no central clearing. Multiple smaller maculopapular lesions on the abdomen chest and back. No discharge.) Course Vital Signs 06/20/19 18:11 Temperature 98.6 F Pulse Rate 115 H Respiratory 18 Rate Blood Pressure 158/93 O2 Sat by Pulse 96 Oximetry Medical Decision Making - Medical Decision Making Patient is 49-year-old male presenting to emergency Department with a chief complaint of bug bites. Patient was advised to come to the emergency department and be admitted by her primary care physician, dr. Fernandez, was personally going to see the patient. Patient will be admitted for further medical management. Case discussed with Dr. Rg. Disposition Clinical Impression: Rash and nonspecific skin eruption Disposition: ADMITTED IP TO THIS HOSP Condition: Stable Instructions (If sedation given, give patient instructions): Skin Yeast Infection (ED) Additional Instructions: Patient will be admitted. Is patient prescribed a controlled substance at d/c from ED?: No Referrals: Kota Fernandez MD [Primary Care Provider] - 1-2 days Time of Disposition: 18:59
[2019-06-20] MEDS ORDERED: SODIUM CHLORIDE 0.9% 1,000 ML IV ONE (20:37)
[2019-06-20] MEDS ORDERED: SODIUM CHLORIDE 0.9% 1,000 ML IV STA ×2 (20:38)
[2019-06-20 21:31] LABS: Anisocytosis Slight; Basophils % (A) 0 %; Eosinophils # (A) 0.2 k/uL (0-0.7); Eosinophils % (A) 2 %; HCT 42.7 % (34.0-46.0); HGB 13.1 gm/dL (11.4-16.0); Hypochromasia Slight; Lymphocytes # (A) 2.4 k/uL (1.0-4.8); Lymphocytes % (A) 32 %; MCHC 30.8 g/dL (31.0-37.0); MCV 87.6 fL (80.0-100.0); Mean Platelet Volume 6.3; Monocytes # (A) 0.4 k/uL (0-1.0); Monocytes % (A) 6 %; Neutrophils # (A) 4.4 k/uL (1.3-7.7); Neutrophils % (A) 58 %; Platelet Count 317 k/uL (150-450); RBC 4.87 m/uL (3.80-5.40); RDW 17.4 % (11.5-15.5); WBC 7.5 k/uL (3.8-10.6)
[2019-06-20 21:36] LABS: Albumin 4.4 g/dL (3.5-5.0); Calcium 9.5 mg/dL (8.4-10.2); Potassium 4.2 mmol/L (3.5-5.1); Total Bilirubin 0.2 mg/dL (0.2-1.3); Total Protein 7.5 g/dL (6.3-8.2)
[2019-06-21 00:06] VITALS: BMI 31.6
[2019-06-21] MEDS ORDERED: ACETAMINOPHEN TAB 325 MG TAB PO STA (02:37)
[2019-06-21] MEDS ORDERED: ALBUTEROL NEBULIZED 2.5 MG/3 ML INHALATION PRN (15:39)
[2019-06-21] MEDS ORDERED: BUTALB/APAP/CAFF 50-325-40MG TAB PO PRN (15:39)
--- NOTE | 2019-06-21 15:46 | P.HPIM ---
History of Present Illness H&P Date: 06/21/19 Chief Complaint: Rash This is a 49-year-old female with history of COPD, DVT, osteoarthritis, chronic pain syndrome, anxiety, nicotine dependence and multiple other medical issues. Presented to the ER with extensive lesions, rash on trunk, back, arms, thighs. Patient reports potential spider bite/bug bite. Patient had been on Bactrim and reports new rash that developed on the chest and back, itchy in nature. Denies any fever or chills night sweats. Denies any lightheadedness or dizziness or focal deficits. Denies chest pain, palpitations or shortness of breath. A febrile, normal WBC. Vital signs stable. Review of Systems ROS Statement: Those systems with pertinent positive or pertinent negative responses have been documented in the HPI. ROS Other: All systems not noted in ROS Statement are negative. Past Medical History Past Medical History: Asthma, COPD, Deep Vein Thrombosis (DVT), Osteoarthritis (OA) Additional Past Medical History / Comment(s): Acute hypoxic respiratory failure secondary to COPD, bronchitis, tachycardia with RAAD, pt states she has recently been told she may have pancreatitis or a benign abdominal tumor, chronic pain- back and cervical, migraines, DJD, DVT L leg in 2013, kidney stones. History of Any Multi-Drug Resistant Organisms: None Reported Past Surgical History: Orthopedic Surgery Additional Past Surgical History / Comment(s): right knee arthroscopic, R oophorectomy d/t cyst, bilateral cervical facet blocks and back injections, colonoscopy with benign polypectomy 2-3 yrs ago. Past Anesthesia/Blood Transfusion Reactions: No Reported Reaction Past Psychological History: Anxiety Additional Psychological History / Comment(s): Pt resides alone. She has a nebulizer and oxygen that she uses prn. She does not own a car. She gets to [facility] by her mother. Smoking Status: Current every day smoker Past Alcohol Use History: None Reported Additional Past Alcohol Use History / Comment(s): STARTED SMOKING AT AGE 15- SMOKES 1 PPD Past Drug Use History: None Reported - Past Family History Mother Family Medical History: No Reported History Additional Family Medical History / Comment(s): Diverticulitis Father Family Medical History: Cancer, Congestive Heart Failure (CHF), Diabetes Mellitus, Eye Disorder, Hypertension Additional Family Medical History / Comment(s): Father was exposed to agent orange. He at the age of 46 from diabetic complications. Medications and Allergies Home Medications Medication Instructions Recorded Confirmed Type Albuterol Inhaler [Ventolin Hfa 1 - 2 puff INHALATION RT-Q6H PRN 06/20/19 06/20/19 History Inhaler] Butalb/Acetaminophen/Caffeine 1 tab PO DAILY PRN 06/20/19 06/20/19 History [Fioricet 50-325-40] Omeprazole 20 mg PO DAILY 06/20/19 06/20/19 History QUEtiapine [SEROquel] 50 mg PO HS 06/20/19 06/20/19 History Sulfamethox-Tmp 800-160Mg [Bactrim 1 tab PO BID 06/20/19 06/20/19 History DS 800-160 mg] Topiramate [Topamax] 50 mg PO DAILY 06/20/19 06/20/19 History clonazePAM [KlonoPIN] 1 mg PO DAILY 06/20/19 06/20/19 History Allergies Allergy/AdvReac Type Severity Reaction Status Date / Time Penicillins Allergy Unknown Verified 06/20/19 19:42 Childhood Physical Exam Vitals: Vital Signs Temp Pulse Pulse Resp BP BP Pulse Ox 06/21/19 07:11 97.7 F 95 16 134/73 94 L 06/20/19 22:35 98.3 F 89 20 165/94 95 06/20/19 21:54 97.6 F 98 16 163/96 99 06/20/19 18:11 98.6 F 115 H 18 158/93 96 Intake and Output 06/20/19 06/21/19 06/21/19 22:59 06:59 14:59 Intake Total 1000 800 Balance 1000 800 Intake: Amount of Fluid Infused ( 1000 ml) Intake, IV Titration 800 Amount Sodium Chloride 0.9% 1, 800 000 ml @ 100 mls/hr IV . Q10H STA Rx#:[id number] Other: Voiding Method Toilet Weight 72.575 kg PHYSICAL EXAM: VITAL SIGNS: As above GENERAL: Being up in bed, no acute distress HEENT: Conjunctivae normal. eyes normal. Oral mucosa moist NECK: No JVD. No thyroid enlargement. No LNs CARDIOVASCULAR: S1, S2 regular. No murmur RESPIRATION: Breath sounds diminished in the bases. No rhonchi or crackles. No bronchial breathing. ABDOMEN: Soft, nontender . No guarding. no masses palpable. No ascites, No hepatosplenomegaly.Bowel sounds heard. LEGS: No edema. no swelling PSYCHIATRY: Alert and oriented X3, mood and affect normal. NERVOUS SYSTEM: Cranial N 2-12 grossly normal. Moves all 4 limbs. Diffuse weakness No focal deficits. Strength and sensation grossly intact.. Skin: Multiple tattoos,warm, intact, normal color, rash (Multiple circular lesions throughout the body measuring approximately 5 cm in diameter with no central clearing. Multiple smaller maculopapular lesions on the abdomen chest and back. No discharge. Joints: No active swelling. No inflammation. Lymphatic system. No LN neck axilla or groin. Results CBC & Chem 7: 06/20/19 21:15 06/20/19 21:15 Labs: Abnormal Lab Results - Last 24 Hours (Table) 06/20/19 Range/Units 21:15 MCHC 30.8 L (31.0-37.0) g/dL RDW 17.4 H (11.5-15.5) % Thrombosis Risk Factor Assmnt - Choose All That Apply Any of the Below Risk Factors Present?: Yes Each Factor Represents 1 point: Abnormal pulmonary function (COPD), Age 41-60 years, Obesity (BMI >25) Other Risk Factors: Yes Each Risk Factor Represents 3 Points: History of DVT/PE Other congenital or acquired thrombophilia - If yes, enter type in comment: No Thrombosis Risk Factor Assessment Total Risk Factor Score: 6 Thrombosis Risk Factor Assessment Level: High Risk Assessment and Plan Assessment: -Extensive Rash, of unclear etiology ,appears to be possibly antibiotic related rash on trunk and back,Psoriatic appearing on thighs. Infectious disease and dermatology consulted. -COPD, stable -History of DVT -Anxiety -Chronic pain syndrome -nicotine dependence Plan: Continue on current medication regime ,monitoring and symptomatic treatment.Antibiotics/steroids/Wound Care as per ID. Dermatology consulted. Home meds have been reviewed and resumed. Patient is ambulatory, GI prophylaxis in place.Further recommendations to follow. The impression and plan of care has been dictated as directed. : I performed a history and examination of this patient, discussed the same with the dictator. I agree with the dictator's note ,documented as a scribe. Any additional findings or plans will be noted. Time taken: 35 minutes
[2019-06-21 17:29] LABS: Glucose,Whole Blood 100 mg/dL (75-99)
[2019-06-21] MEDS: INSULIN ASPART (NovoLOG) 100 UNIT/ML VIAL SQ SCH ×2 (18:14→22:27)
[2019-06-21] MEDS: methylPREDNISolone SOD SUCCI 125 MG/2 ML VIAL IV SCH (18:14)
[2019-06-21] MEDS: PANTOPRAZOLE 40 MG/10 ML VIAL IVP SCH (18:14)
[2019-06-21] MEDS ORDERED: clonazePAM 1 MG TAB PO SCH (21:00)
[2019-06-21] MEDS ORDERED: QUEtiapine 50 MG TAB PO SCH (21:00)
[2019-06-21 21:23] LABS: Glucose,Whole Blood 117 mg/dL (75-99)
[2019-06-21] MEDS: DOXYCYCLINE 100 MG CAP PO SCH (22:32)
--- NOTE | 2019-06-21 22:44 | P.CONS ---
History of Present Illness - Reason for Consult Consult date: 06/21/19 Skin lesion and cellulitis Requesting physician: Kota Fernandez - Chief Complaint Rash and skin lesion 3 weeks - History of Present Illness Patient is a 49-year-old female apparently reporting and bug bite on the dorsum aspect of her right hand subsequently developing lesion on the right hand dorsum as well as the left upper thigh area but no clear history of any bug bite there patient has been circular erythematous with no purulent drainage and has been painful initially patient has been treated with multiple courses of oral Bactrim DS after starting the Bactrim DS the patient has developed a rash on her trunk and less of the body patient be complaining of itching associated with those rashes patient denies having any lesion in her mouth or difficulty swallowing and no difficulty breathing denies any high-grade fever or chills the symptom and patient presented to the ER subsequently has been admitted hospital patient has no fever or elevated white count infectious disease was consulted for further recommendation regarding antibiotic therapy and management of this skin rash Review of Systems Positive points has been mentioned in HPI rest of the systems are negative Past Medical History Past Medical History: Asthma, COPD, Deep Vein Thrombosis (DVT), Osteoarthritis (OA) Additional Past Medical History / Comment(s): Acute hypoxic respiratory failure secondary to COPD, bronchitis, tachycardia with RAAD, pt states she has recently been told she may have pancreatitis or a benign abdominal tumor, chronic pain- back and cervical, migraines, DJD, DVT L leg in 2013, kidney stones. History of Any Multi-Drug Resistant Organisms: None Reported Past Surgical History: Orthopedic Surgery Additional Past Surgical History / Comment(s): right knee arthroscopic, R oophorectomy d/t cyst, bilateral cervical facet blocks and back injections, colonoscopy with benign polypectomy 2-3 yrs ago. Past Anesthesia/Blood Transfusion Reactions: No Reported Reaction Past Psychological History: Anxiety Additional Psychological History / Comment(s): Pt resides alone. She has a nebulizer and oxygen that she uses prn. She does not own a car. She gets to [facility] by her mother. Smoking Status: Current every day smoker Past Alcohol Use History: None Reported Additional Past Alcohol Use History / Comment(s): STARTED SMOKING AT AGE 15- SMOKES 1 PPD Past Drug Use History: None Reported - Past Family History Mother Family Medical History: No Reported History Additional Family Medical History / Comment(s): Diverticulitis Father Family Medical History: Cancer, Congestive Heart Failure (CHF), Diabetes Mellitus, Eye Disorder, Hypertension Additional Family Medical History / Comment(s): Father was exposed to agent orange. He at the age of 46 from diabetic complications. Medications and Allergies Home Medications Medication Instructions Recorded Confirmed Type Albuterol Inhaler [Ventolin Hfa 1 - 2 puff INHALATION RT-Q6H PRN 06/20/19 06/20/19 History Inhaler] Butalb/Acetaminophen/Caffeine 1 tab PO DAILY PRN 06/20/19 06/20/19 History [Fioricet 50-325-40] Omeprazole 20 mg PO DAILY 06/20/19 06/20/19 History QUEtiapine [SEROquel] 50 mg PO HS 06/20/19 06/20/19 History Sulfamethox-Tmp 800-160Mg [Bactrim 1 tab PO BID 06/20/19 06/20/19 History DS 800-160 mg] Topiramate [Topamax] 50 mg PO DAILY 06/20/19 06/20/19 History clonazePAM [KlonoPIN] 1 mg PO DAILY 06/20/19 06/20/19 History Allergies Allergy/AdvReac Type Severity Reaction Status Date / Time Penicillins Allergy Unknown Verified 06/20/19 19:42 Childhood Physical Exam Vitals: Vital Signs Temp Pulse Pulse Resp BP BP Pulse Ox 06/21/19 07:11 97.7 F 95 16 134/73 94 L 06/20/19 22:35 98.3 F 89 20 165/94 95 06/20/19 21:54 97.6 F 98 16 163/96 99 06/20/19 18:11 98.6 F 115 H 18 158/93 96 Intake and Output 06/20/19 06/21/19 06/21/19 22:59 06:59 14:59 Intake Total 1000 800 Balance 1000 800 Intake: Amount of Fluid Infused ( 1000 ml) Intake, IV Titration 800 Amount Sodium Chloride 0.9% 1, 800 000 ml @ 100 mls/hr IV . Q10H STA Rx#:[id number] Other: Voiding Method Toilet Weight 72.575 kg GENERAL DESCRIPTION: Middle-aged female lying in bed, no distress. No tachypnea or accessory muscle of respiration use. HEENT: Shows Pallor , no scleral icterus. Oral mucous membrane is dry. No pharyngeal erythema or thrush NECK: Trachea central, no thyromegaly. LUNGS: Unlabored breathing. Clear to auscultation anteriorly. No wheeze or crackle. HEART: S1, S2, regular rate and rhythm. No loud murmur ABDOMEN: Soft, no tenderness , guarding or rigidity, no organomegaly EXTREMITIES: No edema of feet. SKIN: Patient did have multiple lesions which are more of a plaque form on the dorsum aspect of the right arm as well as left upper thigh area currently with no purulence or surrounding redness or any foul-smelling drainage , the patient also have generalized maculopapular rash on her trunk with no vesicle formation NEUROLOGICAL: The patient is awake, alert, oriented x3, mood and affect normal. Results CBC & Chem 7: 06/20/19 21:15 06/20/19 21:15 Labs: Abnormal Lab Results - Last 24 Hours (Table) 06/20/19 Range/Units 21:15 MCHC 30.8 L (31.0-37.0) g/dL RDW 17.4 H (11.5-15.5) % Assessment and Plan Assessment: 1 patient with multiple skin lesion especially on the dorsum of the right arm and the left thigh patient reporting those started after she did have a bug bite did not have a typical feature of cellulitis though underlying infectious etiology not entirely excluded 2-generalized maculopapular rash likely secondary to Bactrim DS Plan: 1-discontinue the Bactrim DS 2-we will give her 4 doses of Solu-Medrol for her drug rash 3-doxycycline 100 mg twice a day 4-we will check syphilis and HIV serology and also check MAI rheumatoid factor and ANCA to rule out rheumatological causes for her rash 5-also recommend dermatology evaluation we will follow on clinical condition and culture to further adjust medication if needed Thank you for this consultation will follow this patient along with you Time with Patient: Greater than 30
[2019-06-21 23:19] LABS: Rheumatoid Factor 6 IU/mL (0-15)
[2019-06-22 00:07] LABS: HIV 1 AB Non-Reactive (Non-Reactive); HIV AB P24 Non-Reactive (Non-Reactive); HIV P24 AG Non-Reactive (Non-Reactive)
[2019-06-22] MEDS: methylPREDNISolone SOD SUCCI 125 MG/2 ML VIAL IV SCH ×2 (00:26→05:41)
[2019-06-22 05:53] VITALS: BP 170/80; PULSE 100; RESP 19; TEMP 97.5
[2019-06-22] MEDS: DOXYCYCLINE 100 MG CAP PO SCH (06:59)
[2019-06-22] MEDS: PANTOPRAZOLE 40 MG/10 ML VIAL IVP SCH (06:59)
[2019-06-22 07:09] LABS: Glucose,Whole Blood 191 mg/dL (75-99)
[2019-06-22] MEDS: INSULIN ASPART (NovoLOG) 100 UNIT/ML VIAL SQ SCH (07:50)
[2019-06-22] MEDS ORDERED: TOPIRAMATE 25 MG TAB PO SCH (09:00)
[2019-06-22] MEDS ORDERED: clonazePAM 1 MG TAB PO SCH (09:00)
[2019-06-24 14:35] LABS: C-ANCA <1:20 Titer (<1:20)
== END 2019-06-22 10:41 | disposition home or self-care (01) ==
LOC: EC 18:05 → 4MS4W 18:48
PROVIDERS: ADMIT Family Medicine; ATTEND Family Medicine
DX: L27.0 Generalized skin eruption due to drugs and medicaments taken internally (principal); L98.9 Disorder of the skin and subcutaneous tissue, unspecified; F41.9 Anxiety disorder, unspecified; G89.4 Chronic pain syndrome; J44.9 Chronic obstructive pulmonary disease, unspecified; G89.29 Other chronic pain; Z86.718 Personal history of other venous thrombosis and embolism; Z87.442 Personal history of urinary calculi; M19.90 Unspecified osteoarthritis, unspecified site; Z90.721 Acquired absence of ovaries, unilateral; F17.210 Nicotine dependence, cigarettes, uncomplicated; Z82.49 Family history of ischemic heart disease and other diseases of the circulatory system; Z83.3 Family history of diabetes mellitus; Z79.899 Other long term (current) drug therapy
CPT/HCPCS: 96361 ×2; 96366; 96375; 96376; 96365; 99285; 86255; 80053; 82150; 83690; 85025; 86431; 87040; 86780; 86038; 87390; G0378 ×3; J2930 ×2; J0696 ×2; C9113 ×2

== ENCOUNTER 2019-07-20 12:52 | Emergency (ER) | payer MEDICARE, OTHER ==
[2019-07-20 12:59] VITALS: BP 160/96; PULSE 109; RESP 20; TEMP 97.8
[2019-07-20] MEDS ORDERED: ACET/COD 300 MG/30 MG STARTER PACK 6 TAB BTL PO STA (13:23)
[2019-07-20] MEDS ORDERED: SULFAMETH-TMP DS STARTER PACK 2 TAB BTL PO STA (13:23)
[2019-07-20] MEDS ORDERED: methylPREDNISolone SOD SUCCI 125 MG/2 ML VIAL IM ONE (13:23)
--- NOTE | 2019-07-20 13:33 | ED ---
Skin/Abscess/FB HPI - General Chief complaint: Skin/Abscess/Foreign Body Stated complaint: Stung on neck by something Time Seen by Provider: 07/20/19 13:02 Source: patient, RN notes reviewed, old records reviewed Mode of arrival: ambulatory Limitations: no limitations - History of Present Illness Initial comments: Patient is a 49-year-old female, she presents emergency department today for evaluation for concern for an insect bite over the back of her neck last night. Patient reports that she has had a history of some chronic skin problems, just tightness with psoriasis. Patient states that she also Dr. Sincere samuels gets IM steroid injections every other week as well for antibiotic injection every other week. Patient states that she has not any oral steroids or antibiotics as of this time. Patient states that she has 2 lesions over the back of her neck. She states that she was stung or bit by an insect yesterday on the lower portion right between her shoulder blades. Patient reports this had increased swelling over the past 24 hours. Patient denies any fevers or chills. - Related Data Home Medications Medication Instructions Recorded Confirmed Albuterol Inhaler [Ventolin Hfa 1 - 2 puff INHALATION RT-Q6H PRN 06/20/19 06/20/19 Inhaler] Butalb/Acetaminophen/Caffeine 1 tab PO DAILY PRN 06/20/19 06/20/19 [Fioricet 50-325-40] Omeprazole 20 mg PO DAILY 06/20/19 06/20/19 QUEtiapine [SEROquel] 50 mg PO HS 06/20/19 06/20/19 Sulfamethox-Tmp 800-160Mg [Bactrim 1 tab PO BID 06/20/19 06/20/19 DS 800-160 mg] Topiramate [Topamax] 50 mg PO DAILY 06/20/19 06/20/19 clonazePAM [KlonoPIN] 1 mg PO DAILY 06/20/19 06/20/19 Previous Rx's Medication Instructions Recorded Cetirizine HCl [Zyrtec] 10 mg PO DAILY #10 tab 07/20/19 Sulfamethox-Tmp 800-160Mg [Bactrim 2 tab PO BID #28 tab 07/20/19 DS 800-160 mg] predniSONE 20 mg PO BID #6 tab 07/20/19 Allergies Allergy/AdvReac Type Severity Reaction Status Date / Time Penicillins Allergy Unknown Verified 07/20/19 12:59 Childhood Review of Systems ROS Statement: Those systems with pertinent positive or pertinent negative responses have been documented in the HPI. ROS Other: All systems not noted in ROS Statement are negative. Past Medical History Past Medical History: Asthma, COPD, Deep Vein Thrombosis (DVT), Osteoarthritis (OA) Additional Past Medical History / Comment(s): Acute hypoxic respiratory failure secondary to COPD, bronchitis, tachycardia with RAAD, pt states she has recently been told she may have pancreatitis or a benign abdominal tumor, chronic pain- back and cervical, migraines, DJD, DVT L leg in 2013, kidney stones. History of Any Multi-Drug Resistant Organisms: None Reported Past Surgical History: Orthopedic Surgery Additional Past Surgical History / Comment(s): right knee arthroscopic, R oophorectomy d/t cyst, bilateral cervical facet blocks and back injections, colonoscopy with benign polypectomy 2-3 yrs ago. Past Anesthesia/Blood Transfusion Reactions: No Reported Reaction Past Psychological History: Anxiety Smoking Status: Current every day smoker Past Alcohol Use History: None Reported Past Drug Use History: None Reported - Past Family History Mother Family Medical History: No Reported History Additional Family Medical History / Comment(s): Diverticulitis Father Family Medical History: Cancer, Congestive Heart Failure (CHF), Diabetes Mellitus, Eye Disorder, Hypertension Additional Family Medical History / Comment(s): Father was exposed to agent orange. He at the age of 46 from diabetic complications. General Exam - General Exam Comments Initial Comments: Pleasant 49-year-old female. No significant distress. Limitations: no limitations Head exam: Present: atraumatic, normocephalic, normal inspection Eye exam: Present: normal appearance, PERRL, EOMI. Absent: scleral icterus, con junctival injection, periorbital swelling ENT exam: Present: normal exam, mucous membranes moist Neck exam: Present: normal inspection. Absent: tenderness, meningismus, lymphadenopathy Respiratory exam: Present: normal lung sounds bilaterally. Absent: respiratory distress, wheezes, rales, rhonchi, stridor Cardiovascular Exam: Present: regular rate, normal rhythm, normal heart sounds. Absent: systolic murmur, diastolic murmur, rubs, gallop, clicks GI/Abdominal exam: Present: soft, normal bowel sounds. Absent: distended, tenderness, guarding, rebound, rigid Extremities exam: Present: normal inspection, full ROM, normal capillary refill. Absent: tenderness, pedal edema, joint swelling, calf tenderness Neurological exam: Present: alert, oriented X3, CN II-XII intact Skin exam: Present: warm, dry, intact, normal color, other (Patient has scattered, scarlike lesions over bilateral forearms, she states is where psoriasis was. Patient has a 3 cm x 4 cm erythematous cellulitic-like lesion between the neck and the hairline of her scalp. Patient has a 6 cm x 7 cm area of erythema and swelling between the shoulder blades and lower portion of her neck. No central punctate lesions or concern for abscess at this time. The area is swollen, firm and tender to touch. No fluctuance or indication for drainage at this time.). Absent: rash Course Vital Signs 07/20/19 12:57 Temperature 97.8 F Pulse Rate 109 H Respiratory 20 Rate Blood Pressure 160/96 O2 Sat by Pulse 99 Oximetry Medical Decision Making - Medical Decision Making 49-year-old female presents emergency room today for possible insect bite on her lower portion of her neck and pain for the past 24 hours. Patient has an area measuring 6 cm x 6 cm of firm swelling between her shoulder daphnie lower portion of her neck. She also has a smaller lesion 7 m it looks like possible cellulitis from the previous abrasion or skin infection. She reports she sees Dr. Prather frequently for steroid injections with history of psoriasis. Patient states she is scheduled for another injection in approximately a week. At this time and concern for secondary infection over one lesion in the upper portion of the neck. Patient was placed on Bactrim. The second lesion between her shoulder blades is appear to be more of a localized ALLERGIC reaction. She'll be given a dose of IM steroids, and histamine medications. Discussed doing warm compresses over the area. Patient is agreeable to treatment plan will comply. Return parameters were discussed. Disposition Clinical Impression: Allergic reaction, Infection of skin of neck Disposition: HOME SELF-CARE Condition: Stable Instructions (If sedation given, give patient instructions): Cellulitis (ED) Additional Instructions: Patient advised to continue to apply the steroid cream that you have prescribed over the area. Take the steroids, antibiotics as prescribed. Return to the emergency department if any alarming signs or symptoms occur. Patient is also advised to apply warm compresses over the area. Prescriptions: Sulfamethox-Tmp 800-160Mg [Bactrim DS 800-160 mg] 2 tab PO BID #28 tab predniSONE 20 mg PO BID #6 tab Cetirizine HCl [Zyrtec] 10 mg PO DAILY #10 tab Is patient prescribed a controlled substance at d/c from ED?: No Referrals: Kota Fernandez MD [Primary Care Provider] - 1-2 days Time of Disposition: 13:28
--- NOTE | 2019-07-20 13:34 | ED ---
Disposition Clinical Impression: Allergic reaction, Infection of skin of neck Disposition: HOME SELF-CARE Condition: Stable Instructions (If sedation given, give patient instructions): Cellulitis (ED) Additional Instructions: Patient advised to continue to apply the steroid cream that you have prescribed over the area. Take the steroids, antibiotics as prescribed. Return to the emergency department if any alarming signs or symptoms occur. Patient is also advised to apply warm compresses over the area. Prescriptions: Sulfamethox-Tmp 800-160Mg [Bactrim DS 800-160 mg] 2 tab PO BID #28 tab predniSONE 20 mg PO BID #6 tab Cetirizine HCl [Zyrtec] 10 mg PO DAILY #10 tab Is patient prescribed a controlled substance at d/c from ED?: No Referrals: Kota Fernandez MD [Primary Care Provider] - 1-2 days Kota Arboleda MD [STAFF PHYSICIAN] - 1-2 days Time of Disposition: 13:34
== END 2019-07-20 13:52 | disposition home or self-care (01) ==
LOC: EC 12:52
DX: T78.40XA Allergy, unspecified, initial encounter (principal); L08.9 Local infection of the skin and subcutaneous tissue, unspecified; G89.29 Other chronic pain; J44.9 Chronic obstructive pulmonary disease, unspecified; F41.9 Anxiety disorder, unspecified; F17.200 Nicotine dependence, unspecified, uncomplicated; Z88.0 Allergy status to penicillin; Z79.899 Other long term (current) drug therapy; Z86.69 Personal history of other diseases of the nervous system and sense organs; Z87.2 Personal history of diseases of the skin and subcutaneous tissue
CPT/HCPCS: 99283; 96372; J2930

== ENCOUNTER 2019-07-29 15:50 | Inpatient (IN) | payer MEDICARE, OTHER ==
[2019-07-29] MEDS ORDERED: SODIUM CHLORIDE 0.9% 1,000 ML IV STA (16:49)
--- NOTE | 2019-07-29 17:20 | ED ---
Skin/Abscess/FB HPI - General Chief complaint: Skin/Abscess/Foreign Body Stated complaint: abscess-sent by [facility] Time Seen by Provider: 07/29/19 16:11 Source: patient, RN notes reviewed, old records reviewed Mode of arrival: ambulatory Limitations: no limitations - History of Present Illness Initial comments: This is a 49-year-old female. This patient presents today for evaluation of recurrent abscess and back abscess. Patient has significant ulceration of her back with another ulceration on her right upper extremity. The ulceration her back is draining purulent drainage. These also she believes may have been a spider bite or some sort of insect bite a few months ago. She has multiple lesions over body on her arms right upper arm and on her back. She feels weak and generally not feeling well but denying fevers. Patient's been seen by dermatology sent to ER for further evaluation and worsening of symptoms. Patient is on multiple outpatient antibiotics with no improvement MD complaint: abscess/boil (Mid scapular), other (Ulceration. Drainage) -: month(s) (2) Location: generalized (Generalized rash on upper extremity patient does not feel well), RUE Severity: moderate Severity scale (1-10): 6 Quality: stabbing, aching Consistency: constant Improves with: none Worsens with: none Context: new medication, recent illness, witnessed insect bite Associated symptoms: chills, malaise Treatments Prior to Arrival: none - Related Data Home Medications Medication Instructions Recorded Confirmed Albuterol Inhaler [Ventolin Hfa 1 - 2 puff INHALATION RT-Q6H PRN 06/20/19 07/29/19 Inhaler] Butalb/Acetaminophen/Caffeine 1 tab PO DAILY PRN 06/20/19 07/29/19 [Fioricet 50-325-40] Omeprazole 20 mg PO DAILY 06/20/19 07/29/19 QUEtiapine [SEROquel] 50 mg PO HS 06/20/19 07/29/19 Topiramate [Topamax] 50 mg PO DAILY 06/20/19 07/29/19 clonazePAM [KlonoPIN] 1 mg PO DAILY 06/20/19 07/29/19 Sulfamethox-Tmp 800-160Mg [Bactrim 1 tab PO BID 07/29/19 07/29/19 DS 800-160 mg] methylPREDNISolone Dose Pack See Taper PO DIRECTED 07/29/19 07/29/19 [Medrol Dose Pack] Previous Rx's Medication Instructions Recorded Cetirizine HCl [Zyrtec] 10 mg PO DAILY #10 tab 07/20/19 Allergies Allergy/AdvReac Type Severity Reaction Status Date / Time Penicillins Allergy Unknown Verified 07/29/19 16:44 Childhood Review of Systems ROS Statement: Those systems with pertinent positive or pertinent negative responses have been documented in the HPI. ROS Other: All systems not noted in ROS Statement are negative. Past Medical History Past Medical History: Asthma, COPD, Deep Vein Thrombosis (DVT), Osteoarthritis (OA) Additional Past Medical History / Comment(s): Acute hypoxic respiratory failure secondary to COPD, bronchitis, tachycardia with RAAD, pt states she has recently been told she may have pancreatitis or a benign abdominal tumor, chronic pain- back and cervical, migraines, DJD, DVT L leg in 2012, kidney stones. History of Any Multi-Drug Resistant Organisms: None Reported Past Surgical History: Orthopedic Surgery Additional Past Surgical History / Comment(s): right knee arthroscopic, R oophorectomy d/t cyst, bilateral cervical facet blocks and back injections, colonoscopy with benign polypectomy 2-3 yrs ago. Past Anesthesia/Blood Transfusion Reactions: No Reported Reaction Past Psychological History: Anxiety Smoking Status: Current every day smoker Past Alcohol Use History: None Reported Past Drug Use History: None Reported - Past Family History Mother Family Medical History: No Reported History Additional Family Medical History / Comment(s): Diverticulitis Father Family Medical History: Cancer, Congestive Heart Failure (CHF), Diabetes Mellitus, Eye Disorder, Hypertension Additional Family Medical History / Comment(s): Father was exposed to agent orange. He at the age of 46 from diabetic complications. General Exam - General Exam Comments Initial Comments: Patient does have right upper extremity rash with right ulceration, mid scapular ulceration with drainage, purulent and surrounding erythema Limitations: no limitations General appearance: alert, in no apparent distress Head exam: Present: atraumatic, normocephalic, normal inspection Eye exam: Present: normal appearance, EOMI. Absent: scleral icterus, conjunctival injection, periorbital swelling ENT exam: Present: normal exam, mucous membranes moist Neck exam: Present: normal inspection. Absent: tenderness, meningismus, lymphadenopathy Respiratory exam: Present: normal lung sounds bilaterally. Absent: respiratory distress, wheezes, rales, rhonchi, stridor Cardiovascular Exam: Present: normal rhythm, tachycardia, normal heart sounds. Absent: systolic murmur, diastolic murmur, rubs, gallop, clicks GI/Abdominal exam: Present: soft, normal bowel sounds. Absent: distended, tenderness, guarding, rebound, rigid Extremities exam: Present: normal inspection, full ROM, normal capillary refill. Absent: tenderness, pedal edema, joint swelling, calf tenderness Back exam: Present: normal inspection Neurological exam: Present: alert, oriented X3, CN II-XII intact Psychiatric exam: Present: normal affect, normal mood Skin exam: Present: warm, dry, intact, normal color. Absent: rash Course Vital Signs 07/29/19 15:54 Temperature 98.0 F Pulse Rate 109 H Respiratory 18 Rate Blood Pressure 169/93 O2 Sat by Pulse 96 Oximetry - Reevaluation(s) Reevaluation #1: 07/29/19 17:20 Medical records reviewed - Consultations Consultation #1: Spoke with Dr. Riley regarding admission, he is agreeable Medical Decision Making - Medical Decision Making 49 female the ER for evaluation presented today for worsening abscess, back abscess as well as some ulcerations on her right arm. Patient believes these were due to spider, patient has been on outpatient MRI for 2 months with no help - Lab Data Result diagrams: 07/29/19 17:17 07/29/19 17:17 Lab Results 07/29/19 07/29/19 07/29/19 Range/Units 17:17 17:17 17:17 WBC 12.6 H (3.8-10.6) k/uL RBC 5.08 (3.80-5.40) m/uL Hgb 13.8 (11.4-16.0) gm/dL Hct 41.7 (34.0-46.0) % MCV 82.2 D (80.0-100.0) fL MCH 27.1 (25.0-35.0) pg MCHC 33.0 (31.0-37.0) g/dL RDW 16.1 H (11.5-15.5) % Plt Count 392 (150-450) k/uL Neutrophils % 72 % Lymphocytes % 21 % Monocytes % 4 % Eosinophils % 1 % Basophils % 1 % Neutrophils # 9.1 H (1.3-7.7) k/uL Lymphocytes # 2.6 (1.0-4.8) k/uL Monocytes # 0.6 (0-1.0) k/uL Eosinophils # 0.1 (0-0.7) k/uL Basophils # 0.1 (0-0.2) k/uL Hypochromasia Slight Anisocytosis Slight PT (9.0-12.0) sec INR (<1.2) APTT (22.0-30.0) sec Sodium 139 (137-145) mmol/L Potassium 4.8 (3.5-5.1) mmol/L Chloride 107 (98-107) mmol/L Carbon Dioxide 22 (22-30) mmol/L Anion Gap 10 mmol/L BUN 19 H (7-17) mg/dL Creatinine 0.64 (0.52-1.04) mg/dL Est GFR (CKD-EPI)AfAm >90 (>60 ml/min/1.73 sqM) Est GFR (CKD-EPI)NonAf >90 (>60 ml/min/1.73 sqM) Glucose 92 (74-99) mg/dL Plasma Lactic Acid César 1.1 (0.7-2.0) mmol/L Calcium 8.9 (8.4-10.2) mg/dL Phosphorus 3.8 (2.5-4.5) mg/dL Magnesium 2.4 H (1.6-2.3) mg/dL Total Bilirubin 0.2 (0.2-1.3) mg/dL AST 20 (14-36) U/L ALT 33 (9-52) U/L Alkaline Phosphatase 92 (38-126) U/L Troponin I (0.000-0.034) ng/mL Total Protein 6.7 (6.3-8.2) g/dL Albumin 4.0 (3.5-5.0) g/dL 07/29/19 07/29/19 Range/Units 17:17 17:17 WBC (3.8-10.6) k/uL RBC (3.80-5.40) m/uL Hgb (11.4-16.0) gm/dL Hct (34.0-46.0) % MCV (80.0-100.0) fL MCH (25.0-35.0) pg MCHC (31.0-37.0) g/dL RDW (11.5-15.5) % Plt Count (150-450) k/uL Neutrophils % % Lymphocytes % % Monocytes % % Eosinophils % % Basophils % % Neutrophils # (1.3-7.7) k/uL Lymphocytes # (1.0-4.8) k/uL Monocytes # (0-1.0) k/uL Eosinophils # (0-0.7) k/uL Basophils # (0-0.2) k/uL Hypochromasia Anisocytosis PT 9.9 (9.0-12.0) sec INR 0.9 (<1.2) APTT 20.4 L (22.0-30.0) sec Sodium (137-145) mmol/L Potassium (3.5-5.1) mmol/L Chloride (98-107) mmol/L Carbon Dioxide (22-30) mmol/L Anion Gap mmol/L BUN (7-17) mg/dL Creatinine (0.52-1.04) mg/dL Est GFR (CKD-EPI)AfAm (>60 ml/min/1.73 sqM) Est GFR (CKD-EPI)NonAf (>60 ml/min/1.73 sqM) Glucose (74-99) mg/dL Plasma Lactic Acid César (0.7-2.0) mmol/L Calcium (8.4-10.2) mg/dL Phosphorus (2.5-4.5) mg/dL Magnesium (1.6-2.3) mg/dL Total Bilirubin (0.2-1.3) mg/dL AST (14-36) U/L ALT (9-52) U/L Alkaline Phosphatase (38-126) U/L Troponin I <0.012 (0.000-0.034) ng/mL Total Protein (6.3-8.2) g/dL Albumin (3.5-5.0) g/dL - EKG Data -: EKG Interpreted by Me (EKG shows sinus rhythm rate of 88, CO 1:30, QRS 72, QTc 445) - Radiology Data Radiology results: report reviewed (CT scapula, abscess , not drainable), image reviewed Disposition Clinical Impression: Back abscess, Failure of outpatient treatment, Ulcerative lesion Disposition: ADMITTED IP TO THIS [facility] Condition: Good Is patient prescribed a controlled substance at d/c from ED?: No
[2019-07-29 17:37] LABS: Anisocytosis Slight; Basophils # (A) 0.1 k/uL (0-0.2); Basophils % (A) 1 %; Eosinophils # (A) 0.1 k/uL (0-0.7); Eosinophils % (A) 1 %; HCT 41.7 % (34.0-46.0); HGB 13.8 gm/dL (11.4-16.0); Hypochromasia Slight; Lymphocytes # (A) 2.6 k/uL (1.0-4.8); Lymphocytes % (A) 21 %; MCH 27.1 pg (25.0-35.0); Mean Platelet Volume 5.5; Monocytes # (A) 0.6 k/uL (0-1.0); Monocytes % (A) 4 %; Neutrophils # (A) 9.1 k/uL (1.3-7.7); Neutrophils % (A) 72 %; Platelet Count 392 k/uL (150-450); RBC 5.08 m/uL (3.80-5.40); RDW 16.1 % (11.5-15.5); WBC 12.6 k/uL (3.8-10.6)
[2019-07-29 17:41] LABS: ALT 33 U/L (9-52); AST 20 U/L (14-36); African American GFR (CKD) >90 (>60 ml/min/1.73 sqM); Alkaline Phosphatase 92 U/L (38-126); Anion Gap 10 mmol/L; Blood Urea Nitrogen 19 mg/dL (7-17); Calcium 8.9 mg/dL (8.4-10.2); Carbon Dioxide 22 mmol/L (22-30); Chloride 107 mmol/L (98-107); Glucose 92 mg/dL (74-99); Magnesium 2.4 mg/dL (1.6-2.3); Phosphorus 3.8 mg/dL (2.5-4.5); Potassium 4.8 mmol/L (3.5-5.1); Sodium 139 mmol/L (137-145); Total Bilirubin 0.2 mg/dL (0.2-1.3); Total Protein 6.7 g/dL (6.3-8.2)
[2019-07-29 17:58] LABS: MCV 82.2 fL (80.0-100.0)
[2019-07-29 18:05] LABS: INR 0.9 (<1.2); Prothrombin Time 9.9 sec (9.0-12.0)
[2019-07-29 18:15] LABS: Partial Thromboplastin Time 20.4 sec (22.0-30.0)
[2019-07-29] MEDS ORDERED: MORPHINE SULFATE 4 MG/ML SYRINGE IVP STA (18:37)
[2019-07-29] MEDS ORDERED: VANCOMYCIN IV PER PHARMACY 1 EACH MISC MISCELLANE PRN (19:29)
[2019-07-29] MEDS ORDERED: SODIUM CHLORIDE 0.9% 1,000 ML IV ONE (19:29)
--- NOTE | 2019-07-29 19:37 | CT ---
EXAMINATION TYPE: CT soft tissue neck w con DATE OF EXAM: 07/29/2019 7:12 PM COMPARISON: None HISTORY: Abscess posterior neck. CT DLP: 226.5 mGycm Automated exposure control for dose reduction was used. CONTRAST: CT scan of the neck is performed following with IV Contrast, patient injected with 100 mL of Isovue M 300. Axial images are obtained, coronal and sagittal reformatted images are reviewed. FINDINGS: There is fairly normal aeration of the visualized paranasal sinuses. Parotid glands are symmetric. Oneill bmandibular salivary glands are symmetric. Epiglottis appears normal. There is mild hypertrophy of th e tonsils. Adenoids appear normal. Epiglottis is normal. Subglottic trachea appears normal. There are a few anterior triangle cervical lymph nodes that measure up to 1 cm. There is a 5 x 2.5 cm area of increased density in the subcutaneous tissues over the posterior lower neck in the midline and towards the left side consistent with large phlegmon. I see no discrete defin ite fluid collection. There is skin thickening. IMPRESSION: Subcutaneous mass on the posterior neck consistent with a phlegmon. No definite drainabl e fluid collection.
[2019-07-29] MEDS ORDERED: VANCOMYCIN 1,250 MG in SODIUM CHLORIDE 0.9% 250 ML IVPB STA (19:44)
[2019-07-29 22:41] VITALS: BMI 30.2
[2019-07-29] MEDS: MORPHINE SULFATE 4 MG/ML SYRINGE IVP PRN (22:51)
[2019-07-30] MEDS: MORPHINE SULFATE 4 MG/ML SYRINGE IVP PRN ×5 (02:38→21:25)
[2019-07-30] MEDS: VANCOMYCIN 1,250 MG in SODIUM CHLORIDE 0.9% 250 ML IVPB SCH ×3 (05:44→21:25)
[2019-07-30] MEDS: ENOXAPARIN 40 MG/0.4 ML SYRINGE SQ SCH (07:36)
[2019-07-30] MEDS ORDERED: BUTALB/APAP/CAFF 50-325-40MG TAB PO PRN (07:37)
--- NOTE | 2019-07-30 08:02 | HP ---
HISTORY AND PHYSICAL This is a 49-year-old white female who presents with recurrent abscess to the upper back area. Ultrasound, CAT scan showed a large phlegmon with an abscess. She has been treated with multiple spider bites and insect bites across her body over the past few months with this large abscess in the back of the neck. She came to the emergency room and she has failed multiple outpatient antibiotics. She will need incision and drainage by Surgery . HOME MEDICATIONS: 1. Ventolin. 2. Fioricet. 3. Omeprazole. 4. Seroquel. 5. Topamax. 6. Klonopin. 7. Bactrim. 8. She has been on Medrol Dosepak. ALLERGIES: PENICILLIN. REVIEW OF SYSTEMS: Fourteen-point review of systems negative except for mentioned in HPI. PAST MEDICAL HISTORY: Asthma, COPD, DVT, osteoarthritis, right knee arthroscope, right oophorectomy, and bilateral cervical blocks, colonoscopy, benign polypectomy. PAST FAMILY HISTORY: Mother with diverticulitis. Father with cancer, congestive heart failure, diabetes mellitus, eye disorder, hypertension. PHYSICAL EXAM: VITAL SIGNS: Stable. Afebrile. CARDIOVASCULAR: S1, S2. LUNGS: Clear. GI: Soft. HEMATOLOGY: Negative Homans. PSYCH: Fair mood and affect. INTEGUMENTARY: Shows upper posterior neck 5 x 5 inch mass, redness, swelling over phlegmon-type black eschar in the middle. ASSESSMENT: 1. Cellulitis/abscess of the left upper back. Surgical consult, IV antibiotics, incision and drainage, which will be needed. 2. Hypertension, acceleration. 3. Tachycardia secondary to above. 4. Leukocytosis secondary to above. Await for surgical recommendations, Infectious Disease, failed outpatient treatment. IV antibiotics are continued at this time. MMODL / IJN: [id number] /
[2019-07-30] MEDS: LORATADINE 10 MG TAB PO SCH (08:28)
[2019-07-30] MEDS: PANTOPRAZOLE 40 MG TABLET PO SCH (08:28)
[2019-07-30] MEDS: TOPIRAMATE 25 MG TAB PO SCH (08:28)
[2019-07-30] MEDS: clonazePAM 1 MG TAB PO SCH (08:31)
[2019-07-30] MEDS ORDERED: ALBUTEROL NEBULIZED 2.5 MG/3 ML INHALATION PRN (09:53)
--- NOTE | 2019-07-30 11:45 | P.GSCN ---
History of Present Illness Consult date: 07/30/19 Reason for Consult: back abscess Requesting physician: Gunnar Rg History of present illness: CHIEF COMPLAINT: abscess HISTORY OF PRESENT ILLNESS: 49 year old female who presents to the ER with a chief complaint of a back wound. She reports the wound has been present for about two weeks. She thinks she may have started from a bug bite. She reports being on antibiotics and steroids outpatient. She saw a comb fixer yesterday who performed an I&D in the office. Patient reports large amount of purulent fluid was expressed. PAST MEDICAL HISTORY: See list. PAST SURGICAL HISTORY: See list. SOCIAL HISTORY: No illicit drug use. REVIEW OF SYSTEMS: CONSTITUTIONAL: Denies fever or chills. HEENT: Denies blurred vision, vision changes, or eye pain. Denies hemoptysis CARDIOVASCULAR: Denies chest pain or pressure. RESPIRATORY: No shortness of breath. GASTROINTESTINAL: Denies abdominal pain. HEMATOLOGIC: Denies bleeding disorders. GENITOURINARY: Denies any blood in urine. SKIN: Denies pruitis. Denies rash. Reports wound to upper back. PHYSICAL EXAM: VITAL SIGNS: Reviewed. GENERAL: Well-developed in no acute distress. HEENT: No sclera icterus. Extraocular movements grossly intact. Moist buccal mucosa. Head is atraumatic, normocephalic. ABDOMEN: Soft. Nondistended. Nontender. NEUROLOGIC: Alert and oriented. Cranial nerves II through XII grossly intact. SKIN: Wound to upper mid back. Approximately 1cm round open wound with purulent drainage and surrounding erythema. LABORATORY DATA: WBC 12.6. Hemoglobin 12.8 IMAGING: CT neck: Subcutaneous mass on the posterior neck consistent with phlegmon. No definite drainable fluid collection. ASSESSMENT: 1. Abscess to mid-upper back, s/p I&D at derm office PLAN: 1. Continue IV antibiotics 2. Obtain wound cultures 3. Consult Dr. Houston for evaluation 4. Local wound care per ID recommendations 5. No surgical intervention recommended at this time as wound is open and draining. Will continue to monitor. Nurse practitioner note has been reviewed by physician. Signing provider agrees with the documented findings, assessment, and plan of care. Past Medical History Past Medical History: Asthma, COPD, Deep Vein Thrombosis (DVT), Osteoarthritis (OA) Additional Past Medical History / Comment(s): Acute hypoxic respiratory failure secondary to COPD, bronchitis, tachycardia with RAAD, pt states she has recently been told she may have pancreatitis or a benign abdominal tumor, chronic pain- back and cervical, migraines, DJD, DVT L leg in 2013, kidney stones. History of Any Multi-Drug Resistant Organisms: None Reported Past Surgical History: Orthopedic Surgery Additional Past Surgical History / Comment(s): right knee arthroscopic, R oophorectomy d/t cyst, bilateral cervical facet blocks and back injections, colonoscopy with benign polypectomy 2-3 yrs ago. Past Anesthesia/Blood Transfusion Reactions: No Reported Reaction Past Psychological History: Anxiety Additional Psychological History / Comment(s): Pt resides alone. She has a nebulizer and oxygen that she uses prn. She does not own a car. She gets to [facility] [place] by her mother. Smoking Status: Current every day smoker Past Alcohol Use History: None Reported Additional Past Alcohol Use History / Comment(s): STARTED SMOKING AT AGE 15- SMOKES 1 PPD Past Drug Use History: None Reported - Past Family History Mother Family Medical History: No Reported History Additional Family Medical History / Comment(s): Diverticulitis Father Family Medical History: Cancer, Congestive Heart Failure (CHF), Diabetes Mellitus, Eye Disorder, Hypertension Additional Family Medical History / Comment(s): Father was exposed to agent orange. He at the age of 46 from diabetic complications. Medications and Allergies Home Medications Medication Instructions Recorded Confirmed Type Albuterol Inhaler [Ventolin Hfa 1 - 2 puff INHALATION RT-Q6H PRN 06/20/19 07/29/19 History Inhaler] Butalb/Acetaminophen/Caffeine 1 tab PO DAILY PRN 06/20/19 07/29/19 History [Fioricet 50-325-40] Omeprazole 20 mg PO DAILY 06/20/19 07/29/19 History QUEtiapine [SEROquel] 50 mg PO HS 06/20/19 07/29/19 History Topiramate [Topamax] 50 mg PO DAILY 06/20/19 07/29/19 History clonazePAM [KlonoPIN] 1 mg PO DAILY 06/20/19 07/29/19 History Cetirizine HCl [Zyrtec] 10 mg PO DAILY #10 tab 07/20/19 07/29/19 Rx Sulfamethox-Tmp 800-160Mg [Bactrim 1 tab PO BID 07/29/19 07/29/19 History DS 800-160 mg] methylPREDNISolone Dose Pack See Taper PO DIRECTED 07/29/19 07/29/19 History [Medrol Dose Pack] Allergies Allergy/AdvReac Type Severity Reaction Status Date / Time Penicillins Allergy Unknown Verified 07/29/19 16:44 Childhood Surgical - Exam Vital Signs Temp Pulse Resp BP Pulse Ox 98.0 F 109 H 18 169/93 96 07/29/19 15:54 07/29/19 15:54 07/29/19 15:54 07/29/19 15:54 07/29/19 15:54 Results - Labs 07/29/19 17:17 07/29/19 17:17 Abnormal Lab Results - Last 24 Hours (Table) 07/29/19 07/29/19 07/29/19 Range/Units 17:17 17:17 17:17 WBC 12.6 H (3.8-10.6) k/uL RDW 16.1 H (11.5-15.5) % Neutrophils # 9.1 H (1.3-7.7) k/uL APTT 20.4 L (22.0-30.0) sec BUN 19 H (7-17) mg/dL Magnesium 2.4 H (1.6-2.3) mg/dL Microbiology - Last 24 Hours (Table) 07/30/19 07:45 Wound Culture - Preliminary Cyst Diabetes panel 07/29/19 Range/Units 17:17 Sodium 139 (137-145) mmol/L Potassium 4.8 (3.5-5.1) mmol/L Chloride 107 (98-107) mmol/L Carbon Dioxide 22 (22-30) mmol/L BUN 19 H (7-17) mg/dL Creatinine 0.64 (0.52-1.04) mg/dL Glucose 92 (74-99) mg/dL Calcium 8.9 (8.4-10.2) mg/dL AST 20 (14-36) U/L ALT 33 (9-52) U/L Alkaline Phosphatase 92 (38-126) U/L Total Protein 6.7 (6.3-8.2) g/dL Albumin 4.0 (3.5-5.0) g/dL Calcium panel 07/29/19 Range/Units 17:17 Calcium 8.9 (8.4-10.2) mg/dL Phosphorus 3.8 (2.5-4.5) mg/dL Albumin 4.0 (3.5-5.0) g/dL Pituitary panel 07/29/19 Range/Units 17:17 Sodium 139 (137-145) mmol/L Potassium 4.8 (3.5-5.1) mmol/L Chloride 107 (98-107) mmol/L Carbon Dioxide 22 (22-30) mmol/L BUN 19 H (7-17) mg/dL Creatinine 0.64 (0.52-1.04) mg/dL Glucose 92 (74-99) mg/dL Calcium 8.9 (8.4-10.2) mg/dL Adrenal panel 07/29/19 Range/Units 17:17 Sodium 139 (137-145) mmol/L Potassium 4.8 (3.5-5.1) mmol/L Chloride 107 (98-107) mmol/L Carbon Dioxide 22 (22-30) mmol/L BUN 19 H (7-17) mg/dL Creatinine 0.64 (0.52-1.04) mg/dL Glucose 92 (74-99) mg/dL Calcium 8.9 (8.4-10.2) mg/dL Total Bilirubin 0.2 (0.2-1.3) mg/dL AST 20 (14-36) U/L ALT 33 (9-52) U/L Alkaline Phosphatase 92 (38-126) U/L Total Protein 6.7 (6.3-8.2) g/dL Albumin 4.0 (3.5-5.0) g/dL
[2019-07-30] MEDS: QUEtiapine 50 MG TAB PO SCH (21:25)
--- NOTE | 2019-07-30 23:58 | P.CONS ---
History of Present Illness - Reason for Consult Consult date: 07/30/19 upper back abscess Requesting physician: Kota Fernandez - Chief Complaint pain and swelling upper back x few days - History of Present Illness Patient is a 49-year-old female apparently developed an abscess on the upper back area for the patient has been evaluated by dermatology in the outpatient setting apparently she did have an I&D and she was noted to have s ignificant purulent drainage subsequently patient has been sent to the ER for further evaluation of the same patient has been complaining of vision in the upper back for a week or so and she has been complaining of throbbing pain to the area with intensity 70 8 out of 10 and no radiation drainage has been mild and the patient also gives a history of previous skin ulceration and the other parts of the body patient did have chills and a fever with the symptom the patient was evaluated by the ER physician on arrival to the ER the patient has been afebrile white count was elevated 12.6 creatinine was normal patient did have blood and local wound culture was obtained she has been started on vanco mycin and Rocephin she did have a CT of the soft tissue of the neck. She was subcutaneous palpable but no drainable abscess infectious disease was consulted for further recommendation for antibiotic therapy. Review of Systems CONSTITUTIONAL: Positive for weakness.low grade Fever EYES: No complaint. ENT:No complaint. RESPIRATORY: No complaint. CARDIOVASCULAR: No complaint. GENITOURINARY: No complaint. GASTROINTESTINAL: No complaint. MUSCULOSKELETAL: No complaint. INTEGUMENTARY: as per hPI. PSYCHOLOGICAL: No complaint. ENDOCRINE: No complaint. NEUROLOGIC: No complaint. Past Medical History Past Medical History: Asthma, COPD, Deep Vein Thrombosis (DVT), Osteoarthritis (OA) Additional Past Medical History / Comment(s): Acute hypoxic respiratory failure secondary to COPD, bronchitis, tachycardia with RAAD, pt states she has recently been told she may have pancreatitis or a benign abdominal tumor, chronic pain- back and cervical, migraines, DJD, DVT L leg in 2012, kidney stones. History of Any Multi-Drug Resistant Organisms: None Reported Past Surgical History: Orthopedic Surgery Additional Past Surgical History / Comment(s): right knee arthroscopic, R oophorectomy d/t cyst, bilateral cervical facet blocks and back injections, colonoscopy with benign polypectomy 2-3 yrs ago. Past Anesthesia/Blood Transfusion Reactions: No Reported Reaction Past Psychological History: Anxiety Additional Psychological History / Comment(s): Pt resides alone. She has a nebulizer and oxygen that she uses prn. She does not own a car. She gets to [facility] by her mother. Smoking Status: Current every day smoker Past Alcohol Use History: None Reported Additional Past Alcohol Use History / Comment(s): STARTED SMOKING AT AGE 15- SMOKES 1 PPD Past Drug Use History: None Reported - Past Family History Mother Family Medical History: No Reported History Additional Family Medical History / Comment(s): Diverticulitis Father Family Medical History: Cancer, Congestive Heart Failure (CHF), Diabetes Mellitus, Eye Disorder, Hypertension Additional Family Medical History / Comment(s): Father was exposed to agent o range. He at the age of 46 from diabetic complications. Medications and Allergies Home Medications Medication Instructions Recorded Confirmed Type Albuterol Inhaler [Ventolin Hfa 1 - 2 puff INHALATION RT-Q6H PRN 06/20/19 07/29/19 History Inhaler] Butalb/Acetaminophen/Caffeine 1 tab PO DAILY PRN 06/20/19 07/29/19 History [Fioricet 50-325-40] Omeprazole 20 mg PO DAILY 06/20/19 07/29/19 History QUEtiapine [SEROquel] 50 mg PO HS 06/20/19 07/29/19 History Topiramate [Topamax] 50 mg PO DAILY 06/20/19 07/29/19 History clonazePAM [KlonoPIN] 1 mg PO DAILY 06/20/19 07/29/19 History Cetirizine HCl [Zyrtec] 10 mg PO DAILY #10 tab 07/20/19 07/29/19 Rx Sulfamethox-Tmp 800-160Mg [Bactrim 1 tab PO BID 07/29/19 07/29/19 History DS 800-160 mg] methylPREDNISolone Dose Pack See Taper PO DIRECTED 07/29/19 07/29/19 History [Medrol Dose Pack] Allergies Allergy/AdvReac Type Severity Reaction Status Date / Time Penicillins Allergy Unknown Verified 07/29/19 16:44 Childhood Physical Exam Vitals: Vital Signs Temp Pulse Pulse Resp BP BP Pulse Ox 07/30/19 14:38 97.7 F 73 16 99/60 94 L 07/30/19 05:16 97.7 F 85 18 130/75 95 07/29/19 23:18 97.5 F L 93 20 186/66 97 07/29/19 21:00 98.3 F 94 20 148/90 97 07/29/19 20:00 106 H 20 136/92 97 07/29/19 19:00 102 H 20 158/68 99 Intake and Output 07/30/19 07/30/19 07/30/19 06:59 14:59 22:59 Other: # Voids 1 2 # Bowel Movements 0 GENERAL DESCRIPTION: Middle-aged male lying in bed, no distress. No tachypnea or accessory muscle of respiration use. HEENT: Shows Pallor , no scleral icterus. Oral mucous membrane is dry. No pharyngeal erythema or thrush NECK: Trachea central, no thyromegaly. LUNGS: Unlabored breathing. Clear to auscultation anteriorly. No wheeze or crackle. HEART: S1, S2, regular rate and rhythm. No loud murmur ABDOMEN: Soft, no tenderness , guarding or rigidity, no organomegaly EXTREMITIES: No edema of feet. SKIN: Upper back with wound --base with slough tissue , some surrounding swelling and redness , tender to touch. NEUROLOGICAL: The patient is awake, alert, oriented x3, mood and affect normal. Results CBC & Chem 7: 07/29/19 17:17 07/29/19 17:17 Labs: Abnormal Lab Results - Last 24 Hours (Table) 07/29/19 07/29/19 07/29/19 Range/Units 17:17 17:17 17:17 WBC 12.6 H (3.8-10.6) k/uL RDW 16.1 H (11.5-15.5) % Neutrophils # 9.1 H (1.3-7.7) k/uL APTT 20.4 L (22.0-30.0) sec BUN 19 H (7-17) mg/dL Magnesium 2.4 H (1.6-2.3) mg/dL Microbiology - Last 24 Hours (Table) 07/30/19 07:45 Gram Stain - Preliminary Cyst Wound Culture - Preliminary Assessment and Plan Assessment: 1-patient with upper back abscess status post drainage with evidence of purulent material and history of recurrent skin soft tissue infection with concern for possible community associated MRSA from neck infection less likely but not entirely excluded (1) Back abscess Current Visit: Yes Status: Acute Code(s): L02.212 - CUTANEOUS ABSCESS OF BACK [ANY PART, EXCEPT BUTTOCK] SNOMED Code(s): 795451833 Plan: 1-vancomycin pharmacy to dose her with a target trough of 15 while watching her kidney function and Vanco trough closely. 2-local wound care with [facility] followed by moist dressing to be changed daily We will follow on clinical condition and cultures to further adjust medication if needed Thank you for this consultation we will follow the patient along with you Time with Patient: Greater than 30
[2019-07-31] MEDS ORDERED: VANCOMYCIN TROUGH DUE 1 EACH MISC MISCELLANE ONE (05:00)
[2019-07-31] MEDS: VANCOMYCIN 1,250 MG in SODIUM CHLORIDE 0.9% 250 ML IVPB SCH ×3 (06:28→21:55)
[2019-07-31] MEDS: PANTOPRAZOLE 40 MG TABLET PO SCH (08:25)
[2019-07-31] MEDS: LORATADINE 10 MG TAB PO SCH (08:25)
[2019-07-31] MEDS: TOPIRAMATE 25 MG TAB PO SCH (08:25)
[2019-07-31] MEDS: clonazePAM 1 MG TAB PO SCH (08:26)
[2019-07-31] MEDS: MORPHINE SULFATE 4 MG/ML SYRINGE IVP PRN ×3 (08:26→20:55)
[2019-07-31] MEDS: ENOXAPARIN 40 MG/0.4 ML SYRINGE SQ SCH (08:26)
--- NOTE | 2019-07-31 18:30 | P.PN ---
Progress Note - Text Progress Note Date: 07/31/19 The patient's resting comfortably rebound. There is no acute changes to her upper back wound. The wound appears to be less inflamed. The patient a local wound care. She'll be most likely discharge home tomorrow.
[2019-07-31] MEDS: QUEtiapine 50 MG TAB PO SCH (21:56)
--- NOTE | 2019-07-31 22:36 | PN ---
PROGRESS NOTE DATE OF SERVICE: July 31, 2019. REASON FOR FOLLOWUP: Upper back abscess and cellulitis. INTERVAL HISTORY: The patient is currently afebrile. The patient's pain to the upper back has slightly decreased in intensity. Denies having any chest pain. No shortness of breath or cough. No nausea, vomiting, abdominal pain or diarrhea. PHYSICAL EXAMINATION: Blood pressure is 138/74 with a pulse of 83, temperature of 98.2. She is 94% on room air. General description is a middle aged female up in the bed in no distress. Respiratory system: Unlabored breathing, clear to auscultation anteriorly. Heart S1, S2. Regular rate and rhythm. Abdomen: Soft, no tenderness. Upper back wound: We still have some slough tissue, surrounding redness is improved. No drainage. DIAGNOSTIC IMPRESSION AND PLAN: Patient with upper back abscess status post drainage. Cultures currently show the Staph aureus with sensitivities pending. Continue vancomycin. Will monitor the kidney function and vancomycin trough closely. Local wound care with [facility]. Re-evaluate the patient tomorrow. MMODL / IJN: [id number] /
--- NOTE | 2019-07-31 23:11 | PN ---
PROGRESS NOTE This is a 49-year-old white female with abscess of neck, cellulitis of the upper back, has an open wound about the size of a ya with necrotic material in the mid back. Surrounding erythema is greatly improved overnight. CARDIOVASCULAR: S1, S2. LUNGS: Clear. INTEGUMENT: Has an ulceration with necrotic material in the mid upper back. Continue current treatment. Follow up in next 24 to 48 hours. Broad-spectrum antibiotics. Possible discharge home soon. MMODL / IJN: [id number] /
[2019-08-01] MEDS: MORPHINE SULFATE 4 MG/ML SYRINGE IVP PRN ×2 (02:21→08:34)
[2019-08-01 04:45] VITALS: RESP 16
[2019-08-01] MEDS: VANCOMYCIN 1,250 MG in SODIUM CHLORIDE 0.9% 250 ML IVPB SCH ×2 (06:03→16:45)
[2019-08-01] MEDS: PANTOPRAZOLE 40 MG TABLET PO SCH (08:30)
[2019-08-01] MEDS: clonazePAM 1 MG TAB PO SCH (08:30)
[2019-08-01] MEDS: LORATADINE 10 MG TAB PO SCH (08:30)
[2019-08-01] MEDS: TOPIRAMATE 25 MG TAB PO SCH (08:30)
[2019-08-01] MEDS: ENOXAPARIN 40 MG/0.4 ML SYRINGE SQ SCH (08:30)
[2019-08-01 08:57] LABS: African American GFR (CKD) >90 (>60 ml/min/1.73 sqM)
--- NOTE | 2019-08-01 12:40 | P.PN ---
Progress Note - Text Progress Note Date: 08/01/19 The patient feels well. Her chronic wound on her back is stable. She'll be discharged home today. She'll follow up and in 1 week..
[2019-08-01] MEDS ORDERED: NICOTINE 21MG/24HR PATCH TRANSDERM SCH (12:45)
[2019-08-01 15:43] VITALS: BP 138/80; PULSE 87; TEMP 98.2
[2019-08-01] MEDS ORDERED: CLINDAMYCIN 150 MG CAP PO SCH (16:00)
--- NOTE | 2019-08-01 16:28 | PN ---
PROGRESS NOTE DATE OF SERVICE: 08/01/2019. REASON FOR FOLLOWUP: Upper back abscess MSSA. INTERVAL HISTORY: The patient is currently afebrile. The patient has been breathing comfortably. The patient denies having any chest pain, shortness of breath or cough or any worsening pain to the upper back area. PHYSICAL EXAMINATION: Blood pressure 101/63 with a pulse of 83, temperature 97.4. She is 96% on room air. General description is a middle-aged female up in the bed in no distress. RESPIRATORY SYSTEM: Unlabored breathing. Clear to auscultation anteriorly. HEART: S1, S2. Regular rate and rhythm. ABDOMEN: Soft. No tenderness. Upper back wound with minimal slough tissue. Surrounding redness has improved. LABS: Wound culture has been finalized with MSSA. DIAGNOSTIC IMPRESSION AND PLAN: Patient with methicillin-susceptible Staphylococcus aeruginosa upper back abscess, status post drainage. Patient at this time to finish therapy with oral Keflex mg p.o. q.6 hours. Prescription was sent to the pharmacy. Local wound care with [facility]. Follow up in the wound care center next week. MMODL / IJN: [id number] /
[2019-08-02] MEDS ORDERED: VANCOMYCIN TROUGH DUE 1 EACH MISC MISCELLANE ONE (05:00)
== END 2019-08-01 17:35 | disposition home or self-care (01) | DRG 603 ==
LOC: EC 15:50 → 4MS4W 19:29 → OBSVTOIN 07-31 09:55
PROVIDERS: ADMIT Family Medicine; ATTEND Family Medicine
DX: L02.212 Cutaneous abscess of back [any part, except buttock and flank] (principal); B95.61 Methicillin susceptible Staphylococcus aureus infection as the cause of diseases classified elsewhere; L03.312 Cellulitis of back [any part except buttock and flank]; T63.301A Toxic effect of unspecified spider venom, accidental (unintentional), initial encounter; I10 Essential (primary) hypertension; J44.9 Chronic obstructive pulmonary disease, unspecified; G43.909 Migraine, unspecified, not intractable, without status migrainosus; F17.210 Nicotine dependence, cigarettes, uncomplicated; M19.90 Unspecified osteoarthritis, unspecified site; Z79.899 Other long term (current) drug therapy; Z87.442 Personal history of urinary calculi; Z86.718 Personal history of other venous thrombosis and embolism; Z86.59 Personal history of other mental and behavioral disorders; Z90.721 Acquired absence of ovaries, unilateral; Z86.010 Personal history of colon polyps; Z88.0 Allergy status to penicillin; Z82.49 Family history of ischemic heart disease and other diseases of the circulatory system; Z83.3 Family history of diabetes mellitus; Z80.9 Family history of malignant neoplasm, unspecified; Z83.79 Family history of other diseases of the digestive system; Z83.518 Family history of other specified eye disorder
CPT/HCPCS: 36415; 70491; 80053; 80202; 82565; 83605; 83735; 84100; 84484; 85025; 85610; 85730; 87040; 87070; 87077; 87186; 87205; 93005; 94760; 96361; 96365; 96367; 96375; 99285

== ENCOUNTER 2019-11-16 10:33 | Emergency (ER) | payer MEDICARE, OTHER ==
[2019-11-16 10:39] VITALS: TEMP 97.7
[2019-11-16] MEDS ORDERED: LIDOCAINE 1%-EPI 1:100,000 20 ML VIAL SQ STA (11:16)
[2019-11-16] MEDS ORDERED: Acetaminophen-Codeine 300-30mg TAB PO STA (11:23)
--- NOTE | 2019-11-16 11:27 | ED ---
Skin/Abscess/FB HPI - General Chief complaint: Skin/Abscess/Foreign Body Stated complaint: abcsess in armpit Time Seen by Provider: 11/16/19 10:41 Source: patient Mode of arrival: ambulatory Limitations: no limitations - History of Present Illness Initial comments: Patient is a 49-year-old female presenting to emergency Department with chief complaint of an abscess. Patient states that about 2 days ago she developed a lesion on her right axilla which she initially felt was just an ingrown hair. She states the pain is getting worse. Patient denies any discharge from the region but does report surrounding erythema. Patient denies any night sweats fevers or chills. Patient has a history of abscesses but not in that region. Patient denies taking any medication to alleviate the symptoms. - Related Data Home Medications Medication Instructions Recorded Confirmed Albuterol Inhaler [Ventolin Hfa 1 - 2 puff INHALATION RT-Q6H PRN 06/20/19 07/29/19 Inhaler] Butalb/Acetaminophen/Caffeine 1 tab PO DAILY PRN 06/20/19 07/29/19 [Fioricet 50-325-40] Omeprazole 20 mg PO DAILY 06/20/19 07/29/19 QUEtiapine [SEROquel] 50 mg PO HS 06/20/19 07/29/19 Topiramate [Topamax] 50 mg PO DAILY 06/20/19 07/29/19 clonazePAM [KlonoPIN] 1 mg PO DAILY 06/20/19 07/29/19 methylPREDNISolone Dose Pack See Taper PO DIRECTED 07/29/19 07/29/19 [Medrol Dose Pack] Previous Rx's Medication Instructions Recorded Cetirizine HCl [Zyrtec] 10 mg PO DAILY #10 tab 07/20/19 Cephalexin [Keflex] 500 mg PO Q6HR #40 cap 08/01/19 Sulfamethox-Tmp 800-160Mg [Bactrim 1 each PO Q12HR #20 tab 11/16/19 Ds] Allergies Allergy/AdvReac Type Severity Reaction Status Date / Time Penicillins Allergy Unknown Verified 11/16/19 10:35 Childhood Review of Systems ROS Statement: Those systems with pertinent positive or pertinent negative responses have been documented in the HPI. ROS Other: All systems not noted in ROS Statement are negative. Past Medical History Past Medical History: Asthma, COPD, Deep Vein Thrombosis (DVT), Osteoarthritis (OA) Additional Past Medical History / Comment(s): Acute hypoxic respiratory failure secondary to COPD, bronchitis, tachycardia with RAAD, pt states she has recently been told she may have pancreatitis or a benign abdominal tumor, chronic pain- back and cervical, migraines, DJD, DVT L leg in 2013, kidney stones. History of Any Multi-Drug Resistant Organisms: None Reported Past Surgical History: Orthopedic Surgery Additional Past Surgical History / Comment(s): right knee arthroscopic, R oophorectomy d/t cyst, bilateral cervical facet blocks and back injections, colonoscopy with benign polypectomy 2-3 yrs ago. Past Anesthesia/Blood Transfusion Reactions: No Reported Reaction Past Psychological History: Anxiety Smoking Status: Current every day smoker Past Alcohol Use History: Occasional Past Drug Use History: None Reported - Past Family History Mother Family Medical History: No Reported History Additional Family Medical History / Comment(s): Diverticulitis Father Family Medical History: Cancer, Congestive Heart Failure (CHF), Diabetes Mellitus, Eye Disorder, Hypertension Additional Family Medical History / Comment(s): Father was exposed to agent orange. He at the age of 46 from diabetic complications. General Exam Limitations: no limitations General appearance: alert, in no apparent distress Head exam: Present: atraumatic, normocephalic, normal inspection Eye exam: Present: normal appearance, PERRL, EOMI Pupils: Present: normal accommodation ENT exam: Present: normal exam, mucous membranes moist Neck exam: Present: normal inspection, full ROM Respiratory exam: Present: normal lung sounds bilaterally Cardiovascular Exam: Present: regular rate, normal rhythm, normal heart sounds Extremities exam: Present: full ROM, tenderness (Tender at the right axilla.), normal capillary refill, other (+2 ulnar and radial pulses bilaterally.). Absen t: normal inspection (Abscess on the right axilla measuring approximately 1.5 cm x 3.5 cm. No drainage at this time. Multiple smaller lesions also noted in the region.) Back exam: Present: normal inspection, full ROM Neurological exam: Present: alert, oriented X3 Psychiatric exam: Present: normal affect, normal mood Skin exam: Present: warm, dry, intact, normal color Course Vital Signs 11/16/19 11/16/19 11/16/19 10:35 10:38 11:38 Temperature 97.7 F Pulse Rate 109 H 100 Respiratory 18 20 20 Rate Blood Pressure 158/90 156/88 O2 Sat by Pulse 98 97 Oximetry 11/16/19 12:17 Temperature Pulse Rate 108 H Respiratory 20 Rate Blood Pressure 165/89 O2 Sat by Pulse 97 Oximetry Procedures - Incision & Drainage Consent Obtained: verbal consent Indication: Abscess Site: other (Axilla) Size (cm): 4 Anesthetic Used: lidocaine 1%, with epi Amount (mLs): 5 I&D Cleaning Method: Alcohol Wipe, Iodine Sterile Field Used?: No Scalpel Used: #11 Needle Aspiration Performed?: No Irrigation Performed?: Yes I&D Drainage Obtained: Pus, Blood Culture Obtained?: Yes Complications: pain, bleeding Patient Tolerated Procedure: well, no complications Medical Decision Making - Medical Decision Making Patient is a 49-year-old female with history of abscesses presenting to the emergency department with a chief complaint of an abscess. On exam patient does have an abscess of the right axilla measuring approximately 1.53.5 cm. The area was anesthetized using lidocaine with epinephrine. Wound culture was also obtained. Patient tolerated procedure well. Large amounts of pus were removed. Patient reports improvement in pain. Patient advised on proper wound care. Patient will also be discharged with Bactrim. Patient also given Tylenol 3 starter pack and advised not to drive or operate heavy machinery when taking the medication. Strict return parameters were thoroughly discussed the patient was understanding and agreeable. Case discussed with physician. Disposition Clinical Impression: Abscess of axilla, right Disposition: HOME SELF-CARE Condition: Stable Instructions (If sedation given, give patient instructions): Abscess (ED) Additional Instructions: Please take prescribed medication as directed. Please follow-up with primary care. Please return to emergency department if symptoms worsen. Replace gauze daily. Do not put any ointment or hydrogen peroxide at the site of the abscess. Prescriptions: Sulfamethox-Tmp 800-160Mg [Bactrim Ds] 1 each PO Q12HR #20 tab Is patient prescribed a controlled substance at d/c from ED?: No Referrals: Kota Fernandez MD [Primary Care Provider] - 1-2 days Time of Disposition: 12:11
[2019-11-16 11:57] VITALS: RESP 20
[2019-11-16] MEDS ORDERED: ACET/COD 300 MG/30 MG STARTER PACK 6 TAB BTL PO STA (12:09)
[2019-11-16 12:18] VITALS: BP 165/89; PULSE 108
== END 2019-11-16 12:17 | disposition home or self-care (01) ==
LOC: EC 10:33
DX: L02.411 Cutaneous abscess of right axilla (principal); J44.9 Chronic obstructive pulmonary disease, unspecified; F41.9 Anxiety disorder, unspecified; F17.200 Nicotine dependence, unspecified, uncomplicated; Z79.899 Other long term (current) drug therapy; Z88.0 Allergy status to penicillin; Z86.718 Personal history of other venous thrombosis and embolism
CPT/HCPCS: 10060; 87070; 87077; 87186; 87205; 99283

== ENCOUNTER 2019-12-26 22:49 | Emergency (ER) | payer MEDICARE ==
[2019-12-26 22:55] VITALS: RESP 18; TEMP 97.6
[2019-12-26] MEDS ORDERED: PANTOPRAZOLE 40 MG/10 ML VIAL IVP STA (23:04)
[2019-12-26] MEDS ORDERED: MORPHINE SULFATE 4 MG/ML SYRINGE IV STA (23:04)
[2019-12-26] MEDS ORDERED: ONDANSETRON 4 MG/2 ML VIAL IVP STA (23:04)
[2019-12-26] MEDS ORDERED: SODIUM CHLORIDE 0.9% 1,000 ML IV STA (23:04)
--- NOTE | 2019-12-26 23:04 | ED ---
Abdominal Pain HPI - General Chief Complaint: Abdominal Pain Stated Complaint: R Side Pain Time Seen by Provider: 12/26/19 22:56 Source: patient, RN notes reviewed, old records reviewed Mode of arrival: ambulatory Limitations: no limitations - History of Present Illness Initial Comments: This is a 49-year-old female DF for eval [place] pain. Multiple visits for abdominal pain. Patient patient thinks he may have some sort of hernia seen by . family doctor earlier the day did scheduled for outpatient testing. This progressed with mild nausea no vomiting no diarrhea no fevers. Patient has had her gallbladder removed and had some sort of bowel rupture rupture which she was a kid. No modifying factors for symptoms at home she was able to eat she is passing stool she is passing flatulence Complaint: abdominal pain -: minutes(s) Location: diffuse, epigastric, suprapubic Radiation: epigastric, suprapubic Migration to: periumbilical Severity: moderate Severity scale (1-10): 4 Consistency: constant Improves With: nothing Worsens With: bowel movement Context: possible food poisoning Associated Symptoms: nausea, vomiting - Related Data Home Medications Medication Instructions Recorded Confirmed Albuterol Inhaler [Ventolin Hfa 1 - 2 puff INHALATION RT-Q6H PRN 06/20/19 07/29/19 Inhaler] Butalb/Acetaminophen/Caffeine 1 tab PO DAILY PRN 06/20/19 07/29/19 [Fioricet 50-325-40] Omeprazole 20 mg PO DAILY 06/20/19 07/29/19 QUEtiapine [SEROquel] 50 mg PO HS 06/20/19 07/29/19 Topiramate [Topamax] 50 mg PO DAILY 06/20/19 07/29/19 clonazePAM [KlonoPIN] 1 mg PO DAILY 06/20/19 07/29/19 methylPREDNISolone Dose Pack See Taper PO DIRECTED 07/29/19 07/29/19 [Medrol Dose Pack] Previous Rx's Medication Instructions Recorded Cetirizine HCl [Zyrtec] 10 mg PO DAILY #10 tab 07/20/19 Cephalexin [Keflex] 500 mg PO Q6HR #40 cap 08/01/19 Sulfamethox-Tmp 800-160Mg [Bactrim 1 each PO Q12HR #20 tab 11/16/19 Ds] Nitrofurantoin Monohyd/M-Cryst 100 mg PO Q12HR #14 cap 12/27/19 [Macrobid] Allergies Allergy/AdvReac Type Severity Reaction Status Date / Time Penicillins Allergy Unknown Verified 12/26/19 22:55 Childhood Review of Systems ROS Statement: Those systems with pertinent positive or pertinent negative responses have been documented in the HPI. ROS Other: All systems not noted in ROS Statement are negative. Past Medical History Past Medical History: Asthma, COPD, Deep Vein Thrombosis (DVT), Osteoarthritis (OA) Additional Past Medical History / Comment(s): Acute hypoxic respiratory failure secondary to COPD, bronchitis, tachycardia with RAAD, pt states she has recently been told she may have pancreatitis or a benign abdominal tumor, chronic pain- back and cervical, migraines, DJD, DVT L leg in 2013, kidney stones. History of Any Multi-Drug Resistant Organisms: None Reported Past Surgical History: Orthopedic Surgery Additional Past Surgical History / Comment(s): right knee arthroscopic, R oophorectomy d/t cyst, bilateral cervical facet blocks and back injections, colonoscopy with benign polypectomy 2-3 yrs ago. Past Anesthesia/Blood Transfusion Reactions: No Reported Reaction Past Psychological History: Anxiety Smoking Status: Current every day smoker Past Alcohol Use History: Occasional Past Drug Use History: None Reported - Past Family History Mother Family Medical History: No Reported History Additional Family Medical History / Comment(s): Diverticulitis Father Family Medical History: Cancer, Congestive Heart Failure (CHF), Diabetes Mellitus, Eye Disorder, Hypertension Additional Family Medical History / Comment(s): Father was exposed to agent orange. He at the age of 46 from diabetic complications. General Exam Limitations: no limitations General appearance: alert, in no apparent distress Head exam: Present: atraumatic, normocephalic, normal inspection Eye exam: Present: normal appearance, PERRL, EOMI. Absent: scleral icterus, conjunctival injection, periorbital swelling ENT exam: Present: normal exam, mucous membranes moist Neck exam: Present: normal inspection. Absent: tenderness, meningismus, lymphadenopathy Respiratory exam: Present: normal lung sounds bilaterally. Absent: respiratory distress, wheezes, rales, rhonchi, stridor Cardiovascular Exam: Present: regular rate, normal rhythm, normal heart sounds. Absent: systolic murmur, diastolic murmur, rubs, gallop, clicks GI/Abdominal exam: Present: soft, normal bowel sounds. Absent: distended, tenderness, guarding, rebound, rigid Extremities exam: Present: normal inspection, full ROM, normal capillary refill. Absent: tenderness, pedal edema, joint swelling, calf tenderness Back exam: Present: normal inspection Neurological exam: Present: alert, oriented X3, CN II-XII intact Psychiatric exam: Present: normal affect, normal mood Skin exam: Present: warm, dry, intact, normal color. Absent: rash Course Vital Signs 12/26/19 22:51 Temperature 97.6 F Pulse Rate 119 H Respiratory 18 Rate Blood Pressure 185/79 O2 Sat by Pulse 100 Oximetry - Reevaluation(s) Reevaluation #1: 12/26/19 23:54 medical record is reviewed Reevaluation #2: 12/27/19 00:45 Patient does have pain control currently Medical Decision Making - Medical Decision Making 49 female DF for evaluation of abdominal pain pain is improved here in the ER patient has urinary tract infection on his lab values, CT of the abdomen and pelvis is otherwise negative - Lab Data Result diagrams: 12/26/19 23:25 12/26/19 23:25 Lab Results 12/26/19 12/26/19 12/26/19 Range/Units 23:20 23:25 23:25 WBC 12.0 H (3.8-10.6) k/uL RBC 5.08 (3.80-5.40) m/uL Hgb 14.3 (11.4-16.0) gm/dL Hct 44.1 (34.0-46.0) % MCV 86.7 (80.0-100.0) fL MCH 28.1 (25.0-35.0) pg MCHC 32.4 (31.0-37.0) g/dL RDW 16.1 H (11.5-15.5) % Plt Count 325 (150-450) k/uL Neutrophils % 71 % Lymphocytes % 21 % Monocytes % 4 % Eosinophils % 1 % Basophils % 0 % Neutrophils # 8.5 H (1.3-7.7) k/uL Lymphocytes # 2.5 (1.0-4.8) k/uL Monocytes # 0.5 (0-1.0) k/uL Eosinophils # 0.2 (0-0.7) k/uL Basophils # 0.0 (0-0.2) k/uL Anisocytosis Slight Sodium 139 (137-145) mmol/L Potassium 4.0 (3.5-5.1) mmol/L Chloride 107 (98-107) mmol/L Carbon Dioxide 24 (22-30) mmol/L Anion Gap 8 mmol/L BUN 15 (7-17) mg/dL Creatinine 0.75 (0.52-1.04) mg/dL Est GFR (CKD-EPI)AfAm >90 (>60 ml/min/1.73 sqM) Est GFR (CKD-EPI)NonAf >90 (>60 ml/min/1.73 sqM) Glucose 115 H (74-99) mg/dL Plasma Lactic Acid [place] (0.7-2.0) mmol/L Calcium 9.6 (8.4-10.2) mg/dL Total Bilirubin <0.1 L (0.2-1.3) mg/dL AST 24 (14-36) U/L ALT 25 (4-34) U/L Alkaline Phosphatase 91 (38-126) U/L Total Protein 7.0 (6.3-8.2) g/dL Albumin 4.2 (3.5-5.0) g/dL Amylase 59 (30-110) U/L Lipase 223 (23-300) U/L Urine Color Yellow Urine Appearance Cloudy H (Clear) Urine pH 5.5 (5.0-8.0) Ur Specific [place] 1.022 (1.001-1.035) Urine Protein Trace H (Negative) Urine Glucose (UA) Negative (Negative) Urine Ketones Negative (Negative) Urine Blood Small H (Negative) Urine Nitrite Negative (Negative) Urine Bilirubin Negative (Negative) Urine Urobilinogen <2.0 (<2.0) mg/dL Ur Leukocyte Esterase Large H (Negative) Urine RBC 15 H (0-5) /hpf Urine WBC >182 H (0-5) /hpf Ur Squamous Epith Cells 6 H (0-4) /hpf Urine Mucus Occasional H (None) /hpf 12/26/19 Range/Units 23:25 WBC (3.8-10.6) k/uL RBC (3.80-5.40) m/uL Hgb (11.4-16.0) gm/dL Hct (34.0-46.0) % MCV (80.0-100.0) fL MCH (25.0-35.0) pg MCHC (31.0-37.0) g/dL RDW (11.5-15.5) % Plt Count (150-450) k/uL Neutrophils % % Lymphocytes % % Monocytes % % Eosinophils % % Basophils % % Neutrophils # (1.3-7.7) k/uL Lymphocytes # (1.0-4.8) k/uL Monocytes # (0-1.0) k/uL Eosinophils # (0-0.7) k/uL Basophils # (0-0.2) k/uL Anisocytosis Sodium (137-145) mmol/L Potassium (3.5-5.1) mmol/L Chloride (98-107) mmol/L Carbon Dioxide (22-30) mmol/L Anion Gap mmol/L BUN (7-17) mg/dL Creatinine (0.52-1.04) mg/dL Est GFR (CKD-EPI)AfAm (>60 ml/min/1.73 sqM) Est GFR (CKD-EPI)NonAf (>60 ml/min/1.73 sqM) Glucose (74-99) mg/dL Plasma Lactic Acid [place] 1.4 (0.7-2.0) mmol/L Calcium (8.4-10.2) mg/dL Total Bilirubin (0.2-1.3) mg/dL AST (14-36) U/L ALT (4-34) U/L Alkaline Phosphatase (38-126) U/L Total Protein (6.3-8.2) g/dL Albumin (3.5-5.0) g/dL Amylase (30-110) U/L Lipase (23-300) U/L Urine Color Urine Appearance (Clear) Urine pH (5.0-8.0) Ur Specific [place] (1.001-1.035) Urine Protein (Negative) Urine Glucose (UA) (Negative) Urine Ketones (Negative) Urine Blood (Negative) Urine Nitrite (Negative) Urine Bilirubin (Negative) Urine Urobilinogen (<2.0) mg/dL Ur Leukocyte Esterase (Negative) Urine RBC (0-5) /hpf Urine WBC (0-5) /hpf Ur Squamous Epith Cells (0-4) /hpf Urine Mucus (None) /hpf - Radiology Data Radiology results: report reviewed (CT head and pelvis is negative for significant acute disease), image reviewed Disposition Clinical Impression: UTI (urinary tract infection), Abdominal pain Disposition: HOME SELF-CARE Condition: Good Instructions (If sedation given, give patient instructions): Urinary Tract Infection in Women (ED) Prescriptions: Nitrofurantoin Monohyd/M-Cryst [Macrobid] 100 mg PO Q12HR #14 cap Is patient prescribed a controlled substance at d/c from ED?: No Referrals: Kota Fernandez MD [Primary Care Provider] - 1-2 days
[2019-12-26 23:36] LABS: Anisocytosis Slight; Basophils % (A) 0 %; Eosinophils # (A) 0.2 k/uL (0-0.7); Eosinophils % (A) 1 %; HCT 44.1 % (34.0-46.0); HGB 14.3 gm/dL (11.4-16.0); Lymphocytes # (A) 2.5 k/uL (1.0-4.8); Lymphocytes % (A) 21 %; MCH 28.1 pg (25.0-35.0); MCHC 32.4 g/dL (31.0-37.0); MCV 86.7 fL (80.0-100.0); Mean Platelet Volume 7.3; Monocytes # (A) 0.5 k/uL (0-1.0); Monocytes % (A) 4 %; Neutrophils # (A) 8.5 k/uL (1.3-7.7); Neutrophils % (A) 71 %; Platelet Count 325 k/uL (150-450); RBC 5.08 m/uL (3.80-5.40); RDW 16.1 % (11.5-15.5)
[2019-12-26 23:44] LABS: Appearance,Urine Cloudy (Clear); Bilirubin,Urine Negative (Negative); Blood,Urine Small (Negative); Color,Urine Yellow; Glucose,Urine (UA) Negative (Negative); Ketones,Urine Negative (Negative); Leukocyte Esterase,Urine Large (Negative); Mucus,Urine Occasional /hpf; Nitrite,Urine Negative (Negative); PH, Urine 5.5 (5.0-8.0); Protein,Urine Trace (Negative); RBC,Urine 15 /hpf (0-5); Specific Gravity,Urine 1.022 (1.001-1.035); Squamous Epithelial Cell,Urine 6 /hpf (0-4); Urobilinogen,Urine <2.0 mg/dL (<2.0); WBC,Urine >182 /hpf (0-5)
[2019-12-26 23:47] LABS: ALT 25 U/L (4-34); AST 24 U/L (14-36); African American GFR (CKD) >90 (>60 ml/min/1.73 sqM); Albumin 4.2 g/dL (3.5-5.0); Alkaline Phosphatase 91 U/L (38-126); Amylase 59 U/L (30-110); Anion Gap 8 mmol/L; Blood Urea Nitrogen 15 mg/dL (7-17); Calcium 9.6 mg/dL (8.4-10.2); Carbon Dioxide 24 mmol/L (22-30); Chloride 107 mmol/L (98-107); Glucose 115 mg/dL (74-99); Non-African American GFR(CKD) >90 (>60 ml/min/1.73 sqM); Sodium 139 mmol/L (137-145); Total Bilirubin <0.1 mg/dL (0.2-1.3)
--- NOTE | 2019-12-27 00:34 | CT ---
EXAMINATION TYPE: CT abdomen pelvis w con DATE OF EXAM: 12/27/2019 COMPARISON: 11/20/2018 HISTORY: RLQ pain CT DLP: 960.9 mGycm Automated exposure control for dose reduction was used. CONTRAST: Performed with IV Contrast, patient injected with 100 mL of Isovue 300. Multiple axial sections were obtained from the diaphragm to the floor the pelvis with intravenous con trast. FINDINGS: Lung bases are clear. There is no pleural effusion. Heart size is normal. There is no pericardial eff usion. Liver spleen pancreas appear normal. Bile ducts are not dilated. There are clips from cholecystectomy . Stomach is intact. There is oval-shaped low-density 1.8 x 3.5 cm left adrenal mass consistent with benign disease. Unchanged. Kidneys show satisfactory contrast opacification. There is no hydronephros is. Delayed images show normal renal excretion. Ureters are not dilated. There is no retroperitoneal adenopathy. Bladder distends smoothly. Uterus is anteverted. There is no inguinal hernia. Lumbar vertebra have normal spacing and alignment. Posterio r elements are intact. There is large posterior L4-5 lumbar disc herniation. Appendix is posterior an d appears normal. There are scattered sigmoid diverticula. There is no sign of diverticulitis. There is no mesenteric edema. There is no ascites or free air. There is no sign of a bowel obstruction. IMPRESSION: Stable left adrenal mass suggestive of benign disease. Normal appendix. No renal stone or obstruction. I do not see a cause for right lower quadrant pain. N o adverse change compared to old exam.
[2019-12-27] MEDS ORDERED: NITROFURANTOIN MONOHYD/M-CRYST 100 MG CAP PO STA (00:36)
[2019-12-27 01:06] VITALS: BP 155/75; PULSE 98
== END 2019-12-27 01:06 | disposition home or self-care (01) ==
LOC: EC 22:49
DX: N39.0 Urinary tract infection, site not specified (principal); J44.9 Chronic obstructive pulmonary disease, unspecified; F41.9 Anxiety disorder, unspecified; F17.200 Nicotine dependence, unspecified, uncomplicated; Z79.899 Other long term (current) drug therapy; Z88.0 Allergy status to penicillin; Z86.718 Personal history of other venous thrombosis and embolism
CPT/HCPCS: 36415; 80053; 82150; 83605; 83690; 85025; 81001; 87086; 87077; 87186; 74177; 99284; 96374; 96375 ×3; 96361; J2270; J2405; J0696; C9113; Q9967

== ENCOUNTER 2020-12-24 09:09 | Emergency (ER) | payer MEDICARE, OTHER ==
[2020-12-24] MEDS ORDERED: oxyCODONE-APAP 10-325MG 1 EACH TAB PO STA (09:50)
[2020-12-24] MEDS ORDERED: LIDOCAINE 5% PATCH TOPICAL STA (09:50)
--- NOTE | 2020-12-24 09:52 | ED ---
General Adult HPI - General Chief complaint: Back Pain/Injury Stated complaint: Back Injury Time Seen by Provider: 12/24/20 09:31 Source: patient Mode of arrival: ambulatory Limitations: no limitations - History of Present Illness Initial comments: Dictation was produced using [employer] dictation software. please excuse any grammatical, word or spelling errors. This patient was cared for during a federal and state declared state of emergency secondary to Covid 19 Chief Complaint: 50-year-old female presents with back strain History of Present Illness: 50-year-old female she states that she hurt her back yesterday. Patient is currently moving into a new residence. She was carrying heavy boxes with her back when all of a sudden she felt a sharp pain in her right lower back right hip area. Patient reports having had hip and back issues in the past after falling. Patient denies any numbness no paresthesias to the lower extremities. No saddle anesthesia. No urinary or bladder incontinence. Patient states her symptoms are exacerbated with certain movements especially going from sitting to supine and supine to sitting. Her position of maximal comfort is slightly leaning forward. The ROS documented in this emergency department record has been reviewed and confirmed by me. Those systems with pertinent positive or negative responses have been documented in the HPI. All other systems are other negative and/or noncontributory. PHYSICAL EXAM: General Impression: Alert and oriented x3, not in acute distress HEENT: Normocephalic atraumatic, extra-ocular movements intact, pupils equal and reactive to light bilaterally, mucous membranes moist. Cardiovascular: Heart regular rate and rhythm Chest: Able to complete full sentences, no retractions, no tachypnea Abdomen: abdomen soft, non-tender, non-distended, no organomegaly Musculoskeletal: Pulses present and equal in all extremities, no peripheral edema, positive straight leg test with elicitation of pain with left leg straight leg test Motor: no focal deficits noted Neurological: CN II-XII grossly intact, no focal motor or sensory deficits noted Skin: Intact with no visualized rashes Psych: Normal affect and mood ED course: 50-year-old female presents with acute back strain. Patient has no high-risk features. Vital Signs upon arrival shows heart rate of 130, rest of vital signs within acceptable limits.Lumbar spine x-ray shows no acute fracture or dislocation. Hip and pelvis x-ray shows no acute fracture dislocation. Clinical presentation consistent with back strain. Patient told to rest. Patient given analgesics at home. She is given referral to a spine doctor. - Related Data Previous Rx's Medication Instructions Recorded HYDROcodone/APAP 5-325MG [[place] 1 tab PO Q6HR PRN 3 Days #12 tab 12/24/20 5-325] Allergies Allergy/AdvReac Type Severity Reaction Status Date / Time Penicillins Allergy Unknown Verified 12/24/20 09:50 Childhood Review of Systems ROS Statement: Those systems with pertinent positive or pertinent negative responses have been documented in the HPI. ROS Other: All systems not noted in ROS Statement are negative. Past Medical History Past Medical History: Asthma, COPD, Deep Vein Thrombosis (DVT), Osteoarthritis (OA) Additional Past Medical History / Comment(s): Acute hypoxic respiratory failure secondary to COPD, bronchitis, tachycardia with RAAD, pt states she has recently been told she may have pancreatitis or a benign abdominal tumor, chronic pain- back and cervical, migraines, DJD, DVT L leg in 2012, kidney stones. History of Any Multi-Drug Resistant Organisms: None Reported Past Surgical History: Orthopedic Surgery Additional Past Surgical History / Comment(s): right knee arthroscopic, R oophorectomy d/t cyst, bilateral cervical facet blocks and back injections, colonoscopy with benign polypectomy 2-3 yrs ago. Past Anesthesia/Blood Transfusion Reactions: No Reported Reaction Past Psychological History: Anxiety Smoking Status: Current every day smoker Past Alcohol Use History: Occasional Past Drug Use History: None Reported - Past Family History Mother Family Medical History: No Reported History Additional Family Medical History / Comment(s): Diverticulitis Father Family Medical History: Cancer, Congestive Heart Failure (CHF), Diabetes Mellitus, Eye Disorder, Hypertension Additional Family Medical History / Comment(s): Father was exposed to agent orange. He at the age of 46 from diabetic complications. General Exam Limitations: no limitations Course Vital Signs 12/24/20 09:10 Temperature 97.9 F Pulse Rate 130 H Respiratory 18 Rate Blood Pressure 157/85 O2 Sat by Pulse 97 Oximetry Disposition Clinical Impression: Back strain Disposition: HOME SELF-CARE Condition: Good Instructions (If sedation given, give patient instructions): Acute Low Back Pain (ED) Prescriptions: HYDROcodone/APAP 5-325MG [[place] 5-325] 1 tab PO Q6HR PRN 3 Days #12 tab PRN Reason: Severe Pain Is patient prescribed a controlled substance at d/c from ED?: Yes If prescribed controlled substance>3 days was MAPS reviewed?: Prescribed <3 Days Referrals: Kota Fernandez MD [Primary Care Provider] - 1-2 days Time of Disposition: 10:50
--- NOTE | 2020-12-24 10:37 | XR ---
EXAMINATION TYPE: XR lumbar spine 2 or 3V DATE OF EXAM: 12/24/2020 CLINICAL HISTORY: Lifting injury yesterday with pain. TECHNIQUE: Frontal and lateral images of the lumbar spine are obtained. 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 The lumbar spine shows grade 1 retrolisthesis L3 on L4 redemonstrated. Vertebral body heights and disk space heights are wit hin normal limits. With mild multilevel anterior spurring redemonstrated. No acute fracture or disloc ation is seen. Punctate calcification towards the sandoval hepatis redemonstrated. IMPRESSION: No acute fracture or dislocation is seen in the lumbar spine.
--- NOTE | 2020-12-24 10:39 | XR ---
EXAMINATION TYPE: XR Hip RT and AP Pelvis DATE OF EXAM: 12/24/2020 COMPARISON: CT abdomen and pelvis December 27, 2019 HISTORY: Injury with pain TECHNIQUE: A single AP view of the pelvis is obtained. Two views of the right hip are obtained. FINDINGS: There is no acute fracture/dislocation evident in the pelvis. The sacroiliac joints remai n symmetric and within normal limits. Pubic symphysis is intact. Mild axial joint space loss and arielle tabular spurring in both hips. Numerous overlying bilateral inferior pelvic phleboliths redemonstrate d. Two views of right hip show no acute fracture or dislocation. No focal lytic or sclerotic lesion see n in the proximal right femur. The overlying soft tissue is unremarkable. IMPRESSION: There is no acute fracture or dislocation in the pelvis or right hip.
--- NOTE | 2020-12-24 10:51 | ED ---
Disposition Clinical Impression: Back strain Disposition: HOME SELF-CARE Condition: Good Instructions (If sedation given, give patient instructions): Acute Low Back Pain (ED) Prescriptions: HYDROcodone/APAP 5-325MG [[place] 5-325] 1 tab PO Q6HR PRN 3 Days #12 tab PRN Reason: Severe Pain Is patient prescribed a controlled substance at d/c from ED?: Yes If prescribed controlled substance>3 days was MAPS reviewed?: Prescribed <3 Days Referrals: Endy Swartz DO [Doctor of Osteopathic Medicine] - 1-2 days
[2020-12-24 11:04] VITALS: BP 137/89; PULSE 100; RESP 16; TEMP 98
== END 2020-12-24 11:10 | disposition home or self-care (01) ==
LOC: EC 09:09
DX: S39.012A Strain of muscle, fascia and tendon of lower back, initial encounter (principal); F17.200 Nicotine dependence, unspecified, uncomplicated; Z88.0 Allergy status to penicillin; Z86.718 Personal history of other venous thrombosis and embolism; X50.0XXA Overexertion from strenuous movement or load, initial encounter
CPT/HCPCS: 72100; 73502; 99283

== ENCOUNTER 2021-04-09 11:23 | Emergency (ER) | payer MEDICARE, OTHER ==
[2021-04-09 11:32] VITALS: RESP 18; TEMP 98.4
--- NOTE | 2021-04-09 12:12 | ED ---
General Adult HPI - General Chief complaint: Extremity Injury, Lower Stated complaint: Poss Blood Clot Time Seen by Provider: 04/09/21 12:04 Source: patient, family, RN notes reviewed, old records reviewed Mode of arrival: ambulatory Limitations: no limitations - History of Present Illness Initial comments: 50-year-old female presenting for evaluation of left leg swelling and pain. This has been noted for the past 2 or 3 days. She has a previous history of DVT and is not currently on any anticoagulation. Pain is primarily behind the knee. There is no injury. She is concerned that this may be a blood clot. She has history of COPD but does report some increased dyspnea. No fever. No central chest pain. She has a chest tightness. - Related Data Home Medications Medication Instructions Recorded Confirmed Aspirin EC [Ecotrin] 325 mg PO ONCE PRN 04/09/21 04/09/21 Tension Headache 1 tab PO Q8H PRN 04/09/21 04/09/21 Previous Rx's Medication Instructions Recorded predniSONE 50 mg PO DAILY #5 tab 04/09/21 Allergies Allergy/AdvReac Type Severity Reaction Status Date / Time Penicillins Allergy Unknown Verified 04/09/21 12:48 Childhood Review of Systems ROS Statement: Those systems with pertinent positive or pertinent negative responses have been documented in the HPI. ROS Other: All systems not noted in ROS Statement are negative. Past Medical History Past Medical History: Asthma, COPD, Deep Vein Thrombosis (DVT), Osteoarthritis (OA) Additional Past Medical History / Comment(s): Acute hypoxic respiratory failure secondary to COPD, bronchitis, tachycardia with RAAD, pt states she has recently been told she may have pancreatitis or a benign abdominal tumor, chronic pain- back and cervical, migraines, DJD, DVT L leg in 2012, kidney stones. History of Any Multi-Drug Resistant Organisms: None Reported Past Surgical History: Orthopedic Surgery Additional Past Surgical History / Comment(s): right knee arthroscopic, R oophorectomy d/t cyst, bilateral cervical facet blocks and back injections, colonoscopy with benign polypectomy 2-3 yrs ago. Past Anesthesia/Blood Transfusion Reactions: No Reported Reaction Past Psychological History: Anxiety Smoking Status: Current every day smoker Past Alcohol Use History: Occasional Past Drug Use History: None Reported - Past Family History Mother Family Medical History: No Reported History Additional Family Medical History / Comment(s): Diverticulitis Father Family Medical History: Cancer, Congestive Heart Failure (CHF), Diabetes Mellitus, Eye Disorder, Hypertension Additional Family Medical History / Comment(s): Father was exposed to agent orange. He at the age of 46 from diabetic complications. General Exam Limitations: no limitations General appearance: alert, in no apparent distress Head exam: Present: atraumatic, normocephalic Eye exam: Present: normal appearance, PERRL Neck exam: Present: normal inspection. Absent: tenderness, meningismus Respiratory exam: Present: respiratory distress, decreased breath sounds Cardiovascular Exam: Present: regular rate, normal rhythm GI/Abdominal exam: Present: soft, distended. Absent: tenderness, guarding, rebound Extremities exam: Present: calf tenderness, other (Calf tenderness in the left calf and posterior knee. Distal pulses, DP bilaterally 2+.) Neurological exam: Present: alert, oriented X3, CN II-XII intact. Absent: motor sensory deficit Psychiatric exam: Present: anxious Skin exam: Present: warm, dry, intact. Absent: cyanosis, diaphoretic Course Vital Signs 04/09/21 04/09/21 04/09/21 11:28 12:47 13:01 Temperature 98.4 F Pulse Rate 125 H 103 H 102 H Respiratory 18 Rate Blood Pressure 210/97 O2 Sat by Pulse 94 L Oximetry 04/09/21 04/09/21 13:52 13:57 Temperature Pulse Rate 80 98 Respiratory 18 18 Rate Blood Pressure 124/82 164/90 O2 Sat by Pulse 80 L 96 Oximetry EKG Findings - EKG Comments: EKG Findings:: EKG: Sinus tachycardia, rate of 109, MO interval 134, QRS duration 74, QTC 479, no ST segment elevation Medical Decision Making - Medical Decision Making 50-year-old female presenting with left leg swelling, concern for DVT. Patient did have diminished breath sounds, history of COPD. She was tachycardic and workup was initiated including CBC, CMP, d-dimer, troponin, bilateral lower extremity ultrasound and chest x-ray. Workup reveals a normal CBC, negative d-dimer, negative troponin, normal CMP. Ultrasounds of both legs are negative for DVT. Chest x-ray is clear. Given the diminished breath sounds she will be treated for COPD exacerbation. She is encouraged to follow up with her primary care physician as soon as possible. - Lab Data Result diagrams: 04/09/21 12:29 06/11/21 12:29 Lab Results 04/09/21 04/09/21 04/09/21 Range/Units 12:29 12:29 12:29 WBC 10.2 (3.8-10.6) k/uL RBC 5.26 (3.80-5.40) m/uL Hgb 15.8 (11.4-16.0) gm/dL Hct 48.6 H (34.0-46.0) % MCV 92.3 (80.0-100.0) fL MCH 30.0 (25.0-35.0) pg MCHC 32.5 (31.0-37.0) g/dL RDW 14.5 (11.5-15.5) % Plt Count 291 (150-450) k/uL MPV 7.1 Neutrophils % 66 % Lymphocytes % 26 % Monocytes % 5 % Eosinophils % 1 % Basophils % 1 % Neutrophils # 6.7 (1.3-7.7) k/uL Lymphocytes # 2.6 (1.0-4.8) k/uL Monocytes # 0.5 (0-1.0) k/uL Eosinophils # 0.1 (0-0.7) k/uL Basophils # 0.1 (0-0.2) k/uL PT 10.4 (9.0-12.0) sec INR 1.0 (<1.2) APTT 22.8 (22.0-30.0) sec D-Dimer 0.30 (<0.60) mg/L FEU Sodium 141 (137-145) mmol/L Potassium 4.3 (3.5-5.1) mmol/L Chloride 105 (98-107) mmol/L Carbon Dioxide 27 (22-30) mmol/L Anion Gap 9 mmol/L BUN 11 (7-17) mg/dL Creatinine 0.67 (0.52-1.04) mg/dL Est GFR (CKD-EPI)AfAm >90 (>60 ml/min/1.73 sqM) Est GFR (CKD-EPI)NonAf >90 (>60 ml/min/1.73 sqM) Glucose 108 H (74-99) mg/dL Plasma Lactic Acid César (0.7-2.0) mmol/L Calcium 10.2 (8.4-10.2) mg/dL Magnesium 2.1 (1.6-2.3) mg/dL Total Bilirubin 0.4 (0.2-1.3) mg/dL AST 30 (14-36) U/L ALT 33 (4-34) U/L Alkaline Phosphatase 109 (38-126) U/L Troponin I (0.000-0.034) ng/mL Total Protein 7.6 (6.3-8.2) g/dL Albumin 4.8 (3.5-5.0) g/dL 04/09/21 04/09/21 Range/Units 12:29 12:29 WBC (3.8-10.6) k/uL RBC (3.80-5.40) m/uL Hgb (11.4-16.0) gm/dL Hct (34.0-46.0) % MCV (80.0-100.0) fL MCH (25.0-35.0) pg MCHC (31.0-37.0) g/dL RDW (11.5-15.5) % Plt Count (150-450) k/uL MPV Neutrophils % % Lymphocytes % % Monocytes % % Eosinophils % % Basophils % % Neutrophils # (1.3-7.7) k/uL Lymphocytes # (1.0-4.8) k/uL Monocytes # (0-1.0) k/uL Eosinophils # (0-0.7) k/uL Basophils # (0-0.2) k/uL PT (9.0-12.0) sec INR (<1.2) APTT (22.0-30.0) sec D-Dimer (<0.60) mg/L FEU Sodium (137-145) mmol/L Potassium (3.5-5.1) mmol/L Chloride (98-107) mmol/L Carbon Dioxide (22-30) mmol/L Anion Gap mmol/L BUN (7-17) mg/dL Creatinine (0.52-1.04) mg/dL Est GFR (CKD-EPI)AfAm (>60 ml/min/1.73 sqM) Est GFR (CKD-EPI)NonAf (>60 ml/min/1.73 sqM) Glucose (74-99) mg/dL Plasma Lactic Acid César 1.7 (0.7-2.0) mmol/L Calcium (8.4-10.2) mg/dL Magnesium (1.6-2.3) mg/dL Total Bilirubin (0.2-1.3) mg/dL AST (14-36) U/L ALT (4-34) U/L Alkaline Phosphatase (38-126) U/L Troponin I <0.012 (0.000-0.034) ng/mL Total Protein (6.3-8.2) g/dL Albumin (3.5-5.0) g/dL Disposition Clinical Impression: COPD exacerbation Disposition: HOME SELF-CARE Instructions (If sedation given, give patient instructions): COPD (Chronic Obstructive Pulmonary Disease) (ED) Prescriptions: predniSONE 50 mg PO DAILY #5 tab Is patient prescribed a controlled substance at d/c from ED?: No Referrals: Kota Fernandez MD [Primary Care Provider] - 1-2 days Time of Disposition: 14:05
[2021-04-09] MEDS: SODIUM CHLORIDE 0.9% 500 ML 500 ML IV STA (12:42)
[2021-04-09] MEDS: predniSONE 20 MG TAB PO STA (12:42)
[2021-04-09 12:45] LABS: Basophils # (A) 0.1 k/uL (0-0.2); Basophils % (A) 1 %; Eosinophils # (A) 0.1 k/uL (0-0.7); Eosinophils % (A) 1 %; HCT 48.6 % (34.0-46.0); HGB 15.8 gm/dL (11.4-16.0); Lymphocytes # (A) 2.6 k/uL (1.0-4.8); Lymphocytes % (A) 26 %; MCHC 32.5 g/dL (31.0-37.0); MCV 92.3 fL (80.0-100.0); Mean Platelet Volume 7.1; Monocytes # (A) 0.5 k/uL (0-1.0); Monocytes % (A) 5 %; Neutrophils # (A) 6.7 k/uL (1.3-7.7); Neutrophils % (A) 66 %; Platelet Count 291 k/uL (150-450); RBC 5.26 m/uL (3.80-5.40); RDW 14.5 % (11.5-15.5); WBC 10.2 k/uL (3.8-10.6)
[2021-04-09] MEDS: IPRATROPIUM 0.5 MG/2.5 ML NEBU INHALATION STA (12:46)
[2021-04-09] MEDS: ALBUTEROL NEBULIZED 2.5 MG/3 ML INHALATION STA (12:46)
[2021-04-09 12:52] LABS: ALT 33 U/L (4-34); AST 30 U/L (14-36); African American GFR (CKD) >90 (>60 ml/min/1.73 sqM); Albumin 4.8 g/dL (3.5-5.0); Alkaline Phosphatase 109 U/L (38-126); Anion Gap 9 mmol/L; Blood Urea Nitrogen 11 mg/dL (7-17); Calcium 10.2 mg/dL (8.4-10.2); Carbon Dioxide 27 mmol/L (22-30); Chloride 105 mmol/L (98-107); Glucose 108 mg/dL (74-99); Magnesium 2.1 mg/dL (1.6-2.3); Non-African American GFR(CKD) >90 (>60 ml/min/1.73 sqM); Potassium 4.3 mmol/L (3.5-5.1); Sodium 141 mmol/L (137-145); Total Bilirubin 0.4 mg/dL (0.2-1.3); Total Protein 7.6 g/dL (6.3-8.2)
[2021-04-09 13:16] LABS: D-Dimer 0.3 mg/L FEU (<0.60); Partial Thromboplastin Time 22.8 sec (22.0-30.0); Prothrombin Time 10.4 sec (9.0-12.0)
--- NOTE | 2021-04-09 13:27 | US ---
EXAMINATION TYPE: US venous doppler duplex LE BI DATE OF EXAM: 04/09/2021 1:19 PM COMPARISON: NONE CLINICAL HISTORY: 50-year-old female with edema, rule out DVT SIDE PERFORMED: Bilateral TECHNIQUE: The lower extremity deep venous system is examined utilizing real time linear array sonog frank with graded compression, doppler sonography and color-flow sonography. FINDINGS: VESSELS IMAGED: Common Femoral Vein Deep Femoral Vein Greater Saphenous Vein * Femoral Vein Popliteal Vein Small Saphenous Vein * Proximal Calf Veins (* superficial vessels) Right Leg: Negative for DVT Left Leg: Negative for DVT IMPRESSION: No evidence for DVT within the bilateral lower extremities imaged from the groin to the upper calves.
--- NOTE | 2021-04-09 13:37 | XR ---
EXAMINATION TYPE: XR chest 1V portable DATE OF EXAM: 04/09/2021 COMPARISON: 10/07/2018 INDICATION: Difficulty breathing TECHNIQUE: Single frontal view of the chest is obtained. FINDINGS: The heart size is normal. The pulmonary vasculature is normal. The lungs are clear. IMPRESSION: 1. No acute pulmonary process.
[2021-04-09 13:58] VITALS: BP 164/90; PULSE 98
== END 2021-04-09 14:42 | disposition home or self-care (01) ==
LOC: EC 11:23
DX: J45.909 Unspecified asthma, uncomplicated (principal); F17.200 Nicotine dependence, unspecified, uncomplicated; M19.90 Unspecified osteoarthritis, unspecified site; Z86.718 Personal history of other venous thrombosis and embolism
CPT/HCPCS: 36415; 94640; 93005; 85379; 80053; 83605; 83735; 84484; 85025; 85610; 85730; 71045; 93970; 99284; J7512

== ENCOUNTER 2021-05-26 02:01 | Emergency (ER) | payer MEDICARE, OTHER ==
[2021-05-26] MEDS ORDERED: SODIUM CHLORIDE 0.9% 500 ML BAG ONE (05:00)
[2021-05-26 08:35] LABS: Basophils # (A) 0.1 k/uL (0-0.2); Basophils % (A) 1 %; Eosinophils # (A) 0.1 k/uL (0-0.7); Eosinophils % (A) 1 %; HCT 49.4 % (34.0-46.0); Lymphocytes % (A) 28 %; MCH 30.8 pg (25.0-35.0); MCHC 32.3 g/dL (31.0-37.0); MCV 95.5 fL (80.0-100.0); Mean Platelet Volume 7.6; Monocytes # (A) 0.7 k/uL (0-1.0); Monocytes % (A) 7 %; Neutrophils # (A) 6.3 k/uL (1.3-7.7); Neutrophils % (A) 61 %; Platelet Count 320 k/uL (150-450); RBC 5.18 m/uL (3.80-5.40); RDW 14.2 % (11.5-15.5); WBC 10.4 k/uL (3.8-10.6)
[2021-05-26 08:36] LABS: ALT 40 U/L (4-34); AST 33 U/L (14-36); African American GFR (CKD) >90 (>60 ml/min/1.73 sqM); Albumin 4.8 g/dL (3.5-5.0); Alkaline Phosphatase 108 U/L (38-126); Anion Gap 13 mmol/L; Blood Urea Nitrogen 10 mg/dL (7-17); Calcium 9.9 mg/dL (8.4-10.2); Carbon Dioxide 25 mmol/L (22-30); Chloride 102 mmol/L (98-107); Glucose 94 mg/dL (74-99); Non-African American GFR(CKD) >90 (>60 ml/min/1.73 sqM); Phosphorus 5.5 mg/dL (2.5-4.5); Potassium 4.5 mmol/L (3.5-5.1); Sodium 140 mmol/L (137-145); Total Bilirubin 0.3 mg/dL (0.2-1.3); Total Protein 7.7 g/dL (6.3-8.2)
--- NOTE | 2021-05-26 13:29 | XR ---
EXAM: XR Chest, 1 View CLINICAL HISTORY: SOB/COPD TECHNIQUE: Frontal view of the chest. COMPARISON: CXR, July 19, 2018 FINDINGS/IMPRESSION: No infiltrate, pleural effusion, or pneumothorax. Cardiomegaly.
== END 2021-05-26 04:30 | disposition home or self-care (01) ==
LOC: EC 02:01
DX: J44.1 Chronic obstructive pulmonary disease with (acute) exacerbation (principal); F17.200 Nicotine dependence, unspecified, uncomplicated; Z23 Encounter for immunization
CPT/HCPCS: 36415; 71045; 80053; 83735; 83880; 84100; 84484; 85025; 99285

== ENCOUNTER 2023-10-23 18:15 | Emergency (ER) | payer MEDICARE, OTHER ==
[2023-10-23] MEDS ORDERED: LORazepam 2 MG/ML INJ IV STA (18:39)
--- NOTE | 2023-10-23 18:41 | ED ---
General Adult HPI - General Chief complaint: Dizziness Stated complaint: Lightheaded, anxiety Time Seen by Provider: 10/23/23 18:24 Source: patient, RN notes reviewed Mode of arrival: EMS Limitations: no limitations - History of Present Illness Initial comments: Patient is a pleasant 53-year-old female presenting to the emergency department concern for anxiety. Patient has many stressors. Patient has difficulty with the family member who she has elected. Patient To the Bathtub Today and Did Feel Lightheaded and Scared Because She Is Afraid Water. Patient Is Feeling Much Better at This Point. Patient States She Has Had Some Left Leg Swelling T hat She Is Unclear If It Is Chronic. Patient Does Have History of a Previous DVT in That Leg and Was Previously Treated with Anticoagulant. Patient denies ever having any dyspnea. - Related Data Home Medications Medication Instructions Recorded Confirmed Aspirin EC [Ecotrin] 325 mg PO ONCE PRN 04/09/21 04/09/21 Tension Headache 1 tab PO Q8H PRN 04/09/21 04/09/21 Previous Rx's Medication Instructions Recorded Albuterol Nebulized [Ventolin 2.5 mg INHALATION Q4H #60 nebu 04/09/21 Nebulized] predniSONE 50 mg PO DAILY #5 tab 04/09/21 Apixaban [Eliquis Starter Pack 5 - 10 mg PO DIRECTED 30 Days 12/31/22 (for VTE)] #1 each Apixaban [Eliquis Starter Pack 5 - 10 mg PO DIRECTED 30 Days 10/23/23 (for VTE)] #1 each Allergies Allergy/AdvReac Type Severity Reaction Status Date / Time Penicillins Allergy Unknown Verified 12/31/22 13:31 Childhood Review of Systems ROS Statement: Those systems with pertinent positive or pertinent negative responses have been documented in the HPI. ROS Other: All systems not noted in ROS Statement are negative. Constitutional: Denies: fever Eyes: Denies: eye pain ENT: Denies: ear pain Respiratory: Denies: dyspnea Cardiovascular: Denies: chest pain Endocrine: Denies: fatigue Gastrointestinal: Denies: abdominal pain Genitourinary: Denies: dysuria Musculoskeletal: Denies: back pain Past Medical History Past Medical History: Asthma, COPD, Deep Vein Thrombosis (DVT), Osteoarthritis (OA) Additional Past Medical History / Comment(s): Acute hypoxic respiratory failure secondary to COPD, bronchitis, tachycardia with RAAD, pt states she has recently been told she may have pancreatitis or a benign abdominal tumor, chronic pain- back and cervical, migraines, DJD, DVT L leg in 2013, kidney stones. History of Any Multi-Drug Resistant Organisms: None Reported Past Surgical History: Orthopedic Surgery Additional Past Surgical History / Comment(s): right knee arthroscopic, R oophorectomy d/t cyst, bilateral cervical facet blocks and back injections, colonoscopy with benign polypectomy 2-3 yrs ago. Past Anesthesia/Blood Transfusion Reactions: No Reported Reaction Past Psychological History: Anxiety Smoking Status: Current every day smoker, Vaper Past Alcohol Use History: Occasional Past Drug Use History: None Reported - Past Family History Mother Family Medical History: No Reported History Additional Family Medical History / Comment(s): Diverticulitis Father Family Medical History: Cancer, Congestive Heart Failure (CHF), Diabetes Mellitus, Eye Disorder, Hypertension Additional Family Medical History / Comment(s): Father was exposed to agent orange. He at the age of 46 from diabetic complications. General Exam Limitations: no limitations General appearance: alert, in no apparent distress Head exam: Present: normocephalic Eye exam: Present: normal appearance Neck exam: Present: normal inspection Respiratory exam: Present: normal lung sounds bilaterally Cardiovascular Exam: Present: regular rate, normal rhythm Expanded Peripheral pulses: 2+: Radial (R), Radial (L), Dorsalis Pedis (R), Dorsalis Pedis (L) GI/Abdominal exam: Present: soft. Absent: distended, tenderness Extremities exam: Present: other (Minimal swelling left leg.). Absent: calf tenderness Neurological exam: Present: alert Psychiatric exam: Present: normal affect, normal mood Skin exam: Present: normal color Course Vital Signs 10/23/23 10/23/23 18:28 18:38 Temperature 98 F Pulse Rate 99 95 Respiratory 20 16 Rate Blood Pressure 182/87 182/87 O2 Sat by Pulse 97 98 Oximetry EKG Findings - EKG Results: EKG: interpreted by ERMD, sinus rhythm, normal axis, normal QRS, normal ST/T Medical Decision Making - Medical Decision Making Was pt. sent in by a medical professional or institution (, PA, PROPOSAL REVIEW ANALYST, urgent care, hospital, or fci...) When possible be specific @ -No Did you speak to anyone other than the patient for history (EMS, parent, family, police, friend...)? What history was obtained from this source @ -No Did you review nursing and triage notes (agree or disagree)? Why? @ -I reviewed and agree with nursing and triage notes Were old charts reviewed (outside hosp., previous admission, EMS record, old EKG, old radiological studies, urgent care reports/EKG's, fci records)? Report findings @ -No old charts were reviewed Differential Diagnosis (chest pain, altered mental status, abdominal pain women, abdominal pain men, vaginal bleeding, weakness, fever, dyspnea, syncope, headache, dizziness, GI bleed, back pain, seizure, CVA, palpatations, mental health, musculoskeletal)? @ -Differential Dizziness: Benign paroxysmal positional Vertigo, Menieres disease, otitis media, acoustic neuroma, vertebrobasilar insufficiency, cerebellar stroke, encephalitis, hypovolemic, arrhythmia, coronary artery syndrome, anemia, this is not meant to be an all-inclusive list EKG interpreted by me (3pts min.). @ -As above X-rays interpreted by me (1pt min.). @ -None done CT interpreted by me (1pt min.). @ -None done U/S interpreted by me (1pt. min.). @ -Report reviewed What testing was considered but not performed or refused? (CT, X-rays, U/S, labs)? Why? @ -None What meds were considered but not given or refused? Why? @ -None Did you discuss the management of the patient with other professionals (professionals i.e. , PA, PROPOSAL REVIEW ANALYST, lab, RT, psych nurse, social services director, plastic cutter, teacher, supervisory cbp officer, pillowcase cutter)? Give summary @ -No Was smoking cessation discussed for >3mins.? @ -No Was critical care preformed (if so, how long)? @ -No Were there social determinants of health that impacted care today? How? (Homelessness, low income, unemployed, alcoholism, drug addiction, transportation, low edu. Level, literacy, decrease access to med. care, residential, rehab)? @ -No Was there de-escalation of care discussed even if they declined (Discuss DNR or withdrawal of care, Hospice)? DNR status @ -No What co-morbidities impacted this encounter? (DM, HTN, Smoking, COPD, CAD, Cancer, CVA, ARF, Chemo, Hep., AIDS, mental health diagnosis, sleep apnea, morbid obesity)? @ -None Was patient admitted / discharged? Hospital course, mention meds given and route, prescriptions, significant lab abnormalities, going to OR and other pertinent info. @ -Patient reevaluated and symptom-free following Ativan. Patient is updated on results and plan. Patient will be prescribed eliquis starter pack. Patient recommended follow-up with primary care physician. Patient will be discharged. Undiagnosed new problem with uncertain prognosis? @ -No Drug Therapy requiring intensive monitoring for toxicity (Heparin, Nitro, Insulin, Cardizem)? @ -No Were any procedures done? @ -No Diagnosis/symptom? @ -Anxiety, DVT Acute, or Chronic, or Acute on Chronic? @ -Acute on chronic, acute on chronic Uncomplicated (without systemic symptoms) or Complicated (systemic symptoms)? @ -default Side effects of treatment? @ -No Exacerbation, Progression, or Severe Exacerbation? @ -No Poses a threat to life or bodily function? How? (Chest pain, USA, VT, pneumonia, PE, COPD, DKA, ARF, appy, cholecystitis, CVA, Diverticulitis, Homicidal, Suicidal, threat to staff... and all critical care pts) @ -No - Lab Data Result diagrams: 10/23/23 18:38 10/23/23 18:38 Lab Results 10/23/23 10/23/23 Range/Units 18:38 18:38 WBC 8.7 (3.8-10.6) k/uL RBC 4.85 (3.80-5.40) m/uL Hgb 14.7 (11.4-16.0) gm/dL Hct 43.8 (34.0-46.0) % MCV 90.3 (80.0-100.0) fL MCH 30.2 (25.0-35.0) pg MCHC 33.5 (31.0-37.0) g/dL RDW 13.3 (11.5-15.5) % Plt Count 257 (150-450) k/uL MPV 7.5 Neutrophils % 51 % Lymphocytes % 38 % Monocytes % 7 % Eosinophils % 1 % Basophils % 0 % Neutrophils # 4.4 (1.3-7.7) k/uL Lymphocytes # 3.3 (1.0-4.8) k/uL Monocytes # 0.6 (0-1.0) k/uL Eosinophils # 0.1 (0-0.7) k/uL Basophils # 0.0 (0-0.2) k/uL Sodium 142 (137-145) mmol/L Potassium 4.5 (3.5-5.1) mmol/L Chloride 106 (98-107) mmol/L Carbon Dioxide 26 (22-30) mmol/L Anion Gap 10 mmol/L BUN 17 (7-17) mg/dL Creatinine 0.73 (0.52-1.04) mg/dL Est GFR (CKD-EPI)AfAm >90 (>60 ml/min/1.73 sqM) Est GFR (CKD-EPI)NonAf >90 (>60 ml/min/1.73 sqM) Glucose 108 H (74-99) mg/dL Calcium 8.6 (8.4-10.2) mg/dL Disposition Clinical Impression: DVT (deep venous thrombosis), Anxiety Disposition: HOME SELF-CARE Condition: Stable Instructions (If sedation given, give patient instructions): Deep Vein Thrombosis (ED), Anxiety (ED) Additional Instructions: Prescription sent to pharmacy. Please start in the morning. Please do follow-u p with your primary care physician in the next one or 2 days for recheck. Return for chest pain or difficulty in breathing, worsening symptoms or any other concerns. Prescriptions: Apixaban [Eliquis Starter Pack (for VTE)] 5 - 10 mg PO DIRECTED 30 Days #1 each Is patient prescribed a controlled substance at d/c from ED?: No Referrals: Nick Melara MD [STAFF PHYSICIAN] - 1-2 days Time of Disposition: 20:12
[2023-10-23 19:03] VITALS: TEMP 98
[2023-10-23 19:29] LABS: African American GFR (CKD) >90 (>60 ml/min/1.73 sqM); Anion Gap 10 mmol/L; Blood Urea Nitrogen 17 mg/dL (7-17); Calcium 8.6 mg/dL (8.4-10.2); Carbon Dioxide 26 mmol/L (22-30); Chloride 106 mmol/L (98-107); Glucose 108 mg/dL (74-99); Non-African American GFR(CKD) >90 (>60 ml/min/1.73 sqM); Potassium 4.5 mmol/L (3.5-5.1); Sodium 142 mmol/L (137-145)
[2023-10-23 19:46] LABS: Basophils % (A) 0 %; Eosinophils # (A) 0.1 k/uL (0-0.7); Eosinophils % (A) 1 %; HCT 43.8 % (34.0-46.0); HGB 14.7 gm/dL (11.4-16.0); Lymphocytes # (A) 3.3 k/uL (1.0-4.8); Lymphocytes % (A) 38 %; MCH 30.2 pg (25.0-35.0); MCHC 33.5 g/dL (31.0-37.0); MCV 90.3 fL (80.0-100.0); Mean Platelet Volume 7.5; Monocytes # (A) 0.6 k/uL (0-1.0); Monocytes % (A) 7 %; Neutrophils # (A) 4.4 k/uL (1.3-7.7); Neutrophils % (A) 51 %; Platelet Count 257 k/uL (150-450); RBC 4.85 m/uL (3.80-5.40); RDW 13.3 % (11.5-15.5); WBC 8.7 k/uL (3.8-10.6)
--- NOTE | 2023-10-23 19:53 | US ---
EXAMINATION TYPE: US venous doppler duplex LE LT DATE OF EXAM: 10/23/2023 6:39 PM COMPARISON: 12/31/22 CLINICAL INDICATION: Female, 53 years old with history of swelling; Hx of DVT in December 2022. Left spring f pain tonight. Not on blood thinners anymore SIDE PERFORMED: Left TECHNIQUE: The lower extremity deep venous system is examined utilizing real time linear array sonog frank with graded compression, doppler sonography and color-flow sonography. VESSELS IMAGED: Common Femoral Vein Deep Femoral Vein Greater Saphenous Vein * Femoral Vein Popliteal Vein Small Saphenous Vein * Proximal Calf Veins (* superficial vessels) Left Leg: Unable to compress mid femoral vein and there is minimal blood flow. This is the same area of previous DVT IMPRESSION: Redemonstrated mid femoral vein DVT left lower extremity with interval slight recanalizat ion compared to the prior 12/31/2022 exam..
[2023-10-23] MEDS ORDERED: LORazepam 1 MG TAB PO STA (20:07)
[2023-10-23] MEDS ORDERED: APIXABAN 5 MG TAB PO STA ×2 (20:07→20:16)
[2023-10-23 20:56] VITALS: BP 143/82; PULSE 100; RESP 18
== END 2023-10-23 20:47 | disposition home or self-care (01) ==
LOC: EC 18:15
DX: I82.402 Acute embolism and thrombosis of unspecified deep veins of left lower extremity (principal); F41.9 Anxiety disorder, unspecified; J44.89 Other specified chronic obstructive pulmonary disease; F17.290 Nicotine dependence, other tobacco product, uncomplicated; Z79.82 Long term (current) use of aspirin; Z88.0 Allergy status to penicillin
CPT/HCPCS: 36415; 93005; 80048; 85025; 93971; 99285; 96374; J2060

== ENCOUNTER 2023-11-05 10:51 | Emergency (ER) | payer MEDICARE, OTHER ==
[2023-11-05] MEDS ORDERED: methylPREDNISolone SOD SUCCI 125 MG/2 ML VIAL IV STA (10:53)
[2023-11-05] MEDS ORDERED: LORazepam 2 MG/ML INJ IV STA (10:53)
--- NOTE | 2023-11-05 10:55 | ED ---
General Adult HPI - General Stated complaint: Asthma Attack Time Seen by Provider: 11/05/23 10:51 Source: patient, RN notes reviewed, old records reviewed - History of Present Illness Initial comments: This is a 53-year-old female presents emergency department with past medical history significant for COPD and asthma. Patient states she continues to smoke. Patient comes in today stating that her difficulty breathing started this morning and it got aggressively worse even after she used her inhaler. EMS arrived and gave her a DuoNeb in route to the emergency department. Patient states she is feeling a little bit better. Patient denies any fever chills per patient states she is coughing a lot more lately. Patient denies any chest pain or back pain. Patient denies any abdominal pain. Patient denies lightheadedness or dizziness. - Related Data Home Medications Medication Instructions Recorded Confirmed Aspirin EC [Ecotrin] 325 mg PO ONCE PRN 04/09/21 04/09/21 Tension Headache 1 tab PO Q8H PRN 04/09/21 04/09/21 Previous Rx's Medication Instructions Recorded Albuterol Nebulized [Ventolin 2.5 mg INHALATION Q4H #60 nebu 04/09/21 Nebulized] predniSONE 50 mg PO DAILY #5 tab 04/09/21 Apixaban [Eliquis Starter Pack 5 - 10 mg PO DIRECTED 30 Days 12/31/22 (for VTE)] #1 each Apixaban [Eliquis Starter Pack 5 - 10 mg PO DIRECTED 30 Days 10/23/23 (for VTE)] #1 each Ipratropium-Albuterol Nebulize 3 ml INHALATION QID #90 ml 11/05/23 [Duoneb 0.5 mg-3 mg/3 ml Soln] predniSONE [Deltasone] 40 mg PO DAILY #8 tab 11/05/23 Allergies Allergy/AdvReac Type Severity Reaction Status Date / Time Penicillins Allergy Unknown Verified 11/05/23 10:56 Childhood Review of Systems ROS Statement: Those systems with pertinent positive or pertinent negative responses have been documented in the HPI. ROS Other: All systems not noted in ROS Statement are negative. Past Medical History Past Medical History: Asthma, COPD, Deep Vein Thrombosis (DVT), Osteoarthritis (OA) Additional Past Medical History / Comment(s): Acute hypoxic respiratory failure secondary to COPD, bronchitis, tachycardia with RAAD, pt states she has recently been told she may have pancreatitis or a benign abdominal tumor, chronic pain- back and cervical, migraines, DJD, DVT L leg in 2013, kidney stones. History of Any Multi-Drug Resistant Organisms: None Reported Past Surgical History: Orthopedic Surgery Additional Past Surgical History / Comment(s): right knee arthroscopic, R oophorectomy d/t cyst, bilateral cervical facet blocks and back injections, colonoscopy with benign polypectomy 2-3 yrs ago. Past Anesthesia/Blood Transfusion Reactions: No Reported Reaction Past Psychological History: Anxiety Smoking Status: Current every day smoker, Vaper Past Alcohol Use History: Occasional Past Drug Use History: None Reported - Past Family History Mother Family Medical History: No Reported History Additional Family Medical History / Comment(s): Diverticulitis Father Family Medical History: Cancer, Congestive Heart Failure (CHF), Diabetes Mellitus, Eye Disorder, Hypertension Additional Family Medical History / Comment(s): Father was exposed to agent orange. He at the age of 46 from diabetic complications. General Exam - General Exam Comments Initial Comments: GENERAL: Patient is well-developed and well-nourished. Patient is nontoxic and well- hydrated and is in mild distress. ENT: Neck is soft and supple. No significant lymphadenopathy is noted. Oropharynx is clear. Moist mucous membranes. Neck has full range of motion without eliciting any pain. EYES: The sclera were anicteric and conjunctiva were pink and moist. Extraocular movements were intact and pupils were equal round and reactive to light. Eyelids were unremarkable. PULMONARY: Patient has some expiratory wheezing. CARDIOVASCULAR: There is a regular rate and rhythm without any murmurs gallops or rubs. ABDOMEN: Soft and nontender with normal bowel sounds. No palpable organomegaly was noted. There is no palpable pulsatile mass. SKIN: Skin is clear with no lesions or rashes and otherwise unremarkable. NEUROLOGIC: Patient is alert and oriented x3. Cranial nerves II through XII are grossly intact. Motor and sensory are also intact. Normal speech, volume and content. Symmetrical smile. MUSCULOSKELETAL: Normal extremities with adequate strength and full range of motion. LYMPHATICS: No significant lymphadenopathy is noted PSYCHIATRIC: Patient is very anxious Course Vital Signs 11/05/23 11/05/23 11/05/23 10:52 10:57 11:21 Temperature 97.6 F Pulse Rate 117 H 124 H Respiratory 34 H 32 H 24 Rate Blood Pressure 156/97 161/87 O2 Sat by Pulse 99 95 Oximetry 11/05/23 12:13 Temperature Pulse Rate 98 Respiratory 20 Rate Blood Pressure 135/95 O2 Sat by Pulse 97 Oximetry Medical Decision Making - Medical Decision Making EKG was interpreted by myself. EKG shows a sinus rhythm at 99 bpm NE interval is 149 QRS is 93 QT interval 356 QTC is 412. Patient's EKG shows no ST segment elevation or depression. Was pt. sent in by a medical professional or institution (, [facility], [facility], urgent care, hospital, or senior care...) When possible be specific @ -No Did you speak to anyone other than the patient for history (EMS, parent, family, police, friend...)? What history was obtained from this source @ -No Did you review nursing and triage notes (agree or disagree)? Why? @ -I reviewed and agree with nursing and triage notes Were old charts reviewed (outside hosp., previous admission, EMS record, old EKG, old radiological studies, urgent care reports/EKG's, senior care records)? Report findings @ -I reviewed prior chart from prior lab work on the patient Differential Diagnosis (chest pain, altered mental status, abdominal pain women, abdominal pain men, vaginal bleeding, weakness, fever, dyspnea, syncope, headache, dizziness, GI bleed, back pain, seizure, CVA, palpatations, mental health, musculoskeletal)? @ -Differential Dyspnea: Coronary syndrome, arrhythmia, tamponade, asthma, COPD, pulmonary embolism, pneumonia, pneumothorax, pulmonary effusion, anaphylaxis, diabetic ketoacidosis, flailed chest, pulmonary contusion, diaphragmatic rupture, anemia, neuromuscular, this is not meant to be an all-inclusive list. EKG interpreted by me (3pts min.). @ -As above X-rays interpreted by me (1pt min.). @ -Chest x-ray showed signs of COPD with no acute findings CT interpreted by me (1pt min.). @ -None done U/S interpreted by me (1pt. min.). @ -None done What testing was considered but not performed or refused? (CT, X-rays, U/S, labs)? Why? @ -None What meds were considered but not given or refused? Why? @ -None Did you discuss the management of the patient with other professionals (professionals i.e. , PA, [facility], lab, RT, psych nurse, social contact worker, editor in chief, te acher, electorate officer, rn case management)? Give summary @ -No Was smoking cessation discussed for >3mins.? @ -Yes Was critical care preformed (if so, how long)? @ -No Were there social determinants of health that impacted care today? How? (Homelessness, low income, unemployed, alcoholism, drug addiction, transportation, low edu. Level, literacy, decrease access to med. care, [facility], rehab)? @ -No Was there de-escalation of care discussed even if they declined (Discuss DNR or withdrawal of care, Hospice)? DNR status @ -No What co-morbidities impacted this encounter? (DM, HTN, Smoking, COPD, CAD, Cancer, CVA, ARF, Chemo, Hep., AIDS, mental health diagnosis, sleep apnea, morbid obesity)? @ -None Was patient admitted / discharged? Hospital course, mention meds given and ro roselyn, prescriptions, significant lab abnormalities, going to OR and other pertinent info. @ -She received treatment from EMS she finished on the emergency department. Patient's x-ray showed no acute abnormality. Patient did receive Solu-Medrol in the emergency department. I went back into reevaluate the patient patient's lung sounds were clear she was feeling better and she was actually 97% on room air. Undiagnosed new problem with uncertain prognosis? @ -No Drug Therapy requiring intensive monitoring for toxicity (Heparin, Nitro, Insulin, Cardizem)? @ -No Were any procedures done? @ -No Diagnosis/symptom? @ -COPD exacerbation Acute, or Chronic, or Acute on Chronic? @ -Acute Uncomplicated (without systemic symptoms) or Complicated (systemic symptoms)? @ -Complicated Side effects of treatment? @ -No Exacerbation, Progression, or Severe Exacerbation? @ -No Poses a threat to life or bodily function? How? (Chest pain, USA, NV, pneumonia, PE, COPD, DKA, ARF, appy, cholecystitis, CVA, Diverticulitis, Homicidal, Suicidal, threat to staff... and all critical care pts) @ -No - Lab Data Result diagrams: 11/05/23 11:11 11/05/23 11:11 Lab Results 11/05/23 11/05/23 11/05/23 Range/Units 11:11 11:11 11:11 WBC 7.1 (3.8-10.6) k/uL RBC 5.23 (3.80-5.40) m/uL Hgb 15.8 (11.4-16.0) gm/dL Hct 47.9 H (34.0-46.0) % MCV 91.6 (80.0-100.0) fL MCH 30.2 (25.0-35.0) pg MCHC 32.9 (31.0-37.0) g/dL RDW 13.0 (11.5-15.5) % Plt Count 268 (150-450) k/uL MPV 6.7 Neutrophils % 47 % Lymphocytes % 43 % Monocytes % 5 % Eosinophils % 2 % Basophils % 1 % Neutrophils # 3.3 (1.3-7.7) k/uL Lymphocytes # 3.1 (1.0-4.8) k/uL Monocytes # 0.4 (0-1.0) k/uL Eosinophils # 0.1 (0-0.7) k/uL Basophils # 0.1 (0-0.2) k/uL PT 10.3 (10.0-12.5) sec INR 0.9 (<1.2) APTT 24.7 (22.0-30.0) sec Sodium 141 (137-145) mmol/L Potassium 3.6 (3.5-5.1) mmol/L Chloride 102 (98-107) mmol/L Carbon Dioxide 27 (22-30) mmol/L Anion Gap 12 mmol/L BUN 14 (7-17) mg/dL Creatinine 0.74 (0.52-1.04) mg/dL Est GFR (CKD-EPI)AfAm >90 (>60 ml/min/1.73 sqM) Est GFR (CKD-EPI)NonAf >90 (>60 ml/min/1.73 sqM) Glucose 143 H (74-99) mg/dL Plasma Lactic Acid César (0.7-2.0) mmol/L Calcium 9.2 (8.4-10.2) mg/dL Magnesium 2.0 (1.6-2.3) mg/dL Total Bilirubin 0.3 (0.2-1.3) mg/dL AST 20 (14-36) U/L ALT 18 (4-34) U/L Alkaline Phosphatase 98 (38-126) U/L Troponin I (0.000-0.034) ng/mL NT-Pro-B Natriuret Pep 52 pg/mL Total Protein 6.7 (6.3-8.2) g/dL Albumin 4.0 (3.5-5.0) g/dL Influenza Type A (PCR) (Not Detectd) Influenza Type B (PCR) (Not Detectd) RSV (PCR) (Not Detectd) SARS-CoV-2 (PCR) (Not Detectd) 11/05/23 11/05/23 11/05/23 Range/Units 11:11 11:11 11:11 WBC (3.8-10.6) k/uL RBC (3.80-5.40) m/uL Hgb (11.4-16.0) gm/dL Hct (34.0-46.0) % MCV (80.0-100.0) fL MCH (25.0-35.0) pg MCHC (31.0-37.0) g/dL RDW (11.5-15.5) % Plt Count (150-450) k/uL MPV Neutrophils % % Lymphocytes % % Monocytes % % Eosinophils % % Basophils % % Neutrophils # (1.3-7.7) k/uL Lymphocytes # (1.0-4.8) k/uL Monocytes # (0-1.0) k/uL Eosinophils # (0-0.7) k/uL Basophils # (0-0.2) k/uL PT (10.0-12.5) sec INR (<1.2) APTT (22.0-30.0) sec Sodium (137-145) mmol/L Potassium (3.5-5.1) mmol/L Chloride (98-107) mmol/L Carbon Dioxide (22-30) mmol/L Anion Gap mmol/L BUN (7-17) mg/dL Creatinine (0.52-1.04) mg/dL Est GFR (CKD-EPI)AfAm (>60 ml/min/1.73 sqM) Est GFR (CKD-EPI)NonAf (>60 ml/min/1.73 sqM) Glucose (74-99) mg/dL Plasma Lactic Acid César 2.2 H* (0.7-2.0) mmol/L Calcium (8.4-10.2) mg/dL Magnesium (1.6-2.3) mg/dL Total Bilirubin (0.2-1.3) mg/dL AST (14-36) U/L ALT (4-34) U/L Alkaline Phosphatase (38-126) U/L Troponin I <0.012 (0.000-0.034) ng/mL NT-Pro-B Natriuret Pep pg/mL Total Protein (6.3-8.2) g/dL Albumin (3.5-5.0) g/dL Influenza Type A (PCR) Not Detected (Not Detectd) Influenza Type B (PCR) Not Detected (Not Detectd) RSV (PCR) Not Detected (Not Detectd) SARS-CoV-2 (PCR) Not Detected (Not Detectd) Disposition Clinical Impression: COPD exacerbation Disposition: HOME SELF-CARE Instructions (If sedation given, give patient instructions): COPD (Chronic Obstructive Pulmonary Disease) (ED) Prescriptions: predniSONE [Deltasone] 40 mg PO DAILY #8 tab Ipratropium-Albuterol Nebulize [Duoneb 0.5 mg-3 mg/3 ml Soln] 3 ml INHALATION QID #90 ml Is patient prescribed a controlled substance at d/c from ED?: No Referrals: None,Stated [Primary Care Provider] - 1-2 days Time of Disposition: 12:53
[2023-11-05 11:44] LABS: Basophils # (A) 0.1 k/uL (0-0.2); Basophils % (A) 1 %; Eosinophils # (A) 0.1 k/uL (0-0.7); Eosinophils % (A) 2 %; HCT 47.9 % (34.0-46.0); HGB 15.8 gm/dL (11.4-16.0); Lymphocytes # (A) 3.1 k/uL (1.0-4.8); Lymphocytes % (A) 43 %; MCH 30.2 pg (25.0-35.0); MCHC 32.9 g/dL (31.0-37.0); MCV 91.6 fL (80.0-100.0); Mean Platelet Volume 6.7; Monocytes # (A) 0.4 k/uL (0-1.0); Monocytes % (A) 5 %; Neutrophils # (A) 3.3 k/uL (1.3-7.7); Neutrophils % (A) 47 %; Platelet Count 268 k/uL (150-450); RBC 5.23 m/uL (3.80-5.40); WBC 7.1 k/uL (3.8-10.6)
--- NOTE | 2023-11-05 11:49 | XR ---
EXAMINATION TYPE: XR chest 2V DATE OF EXAM: 11/05/2023 COMPARISON: 05/26/2021 HISTORY: 53 year-old female shortness of breath, difficulty breathing TECHNIQUE: AP and lateral views FINDINGS: Heart normal size. Aorta and pulmonary vasculature are within normal limits. Mild hyperinflation. No consolidation or pleural effusion. IMPRESSION: COPD. No acute process seen.
[2023-11-05 11:52] LABS: INR 0.9 (<1.2); Partial Thromboplastin Time 24.7 sec (22.0-30.0); Prothrombin Time 10.3 sec (10.0-12.5)
[2023-11-05 11:56] LABS: African American GFR (CKD) >90 (>60 ml/min/1.73 sqM); Anion Gap 12 mmol/L; Blood Urea Nitrogen 14 mg/dL (7-17); Carbon Dioxide 27 mmol/L (22-30); Chloride 102 mmol/L (98-107); Glucose 143 mg/dL (74-99); Potassium 3.6 mmol/L (3.5-5.1); Sodium 141 mmol/L (137-145)
[2023-11-05 11:57] LABS: ALT 18 U/L (4-34); AST 20 U/L (14-36); Alkaline Phosphatase 98 U/L (38-126); Calcium 9.2 mg/dL (8.4-10.2); Non-African American GFR(CKD) >90 (>60 ml/min/1.73 sqM); Total Bilirubin 0.3 mg/dL (0.2-1.3); Total Protein 6.7 g/dL (6.3-8.2)
[2023-11-05 12:03] LABS: NT-Pro-B-Type Natriuretic Pept 52 pg/mL
[2023-11-05 13:24] VITALS: BP 132/89; PULSE 94; RESP 18; TEMP 98
== END 2023-11-05 13:18 | disposition home or self-care (01) ==
LOC: EC 10:51
DX: J44.89 Other specified chronic obstructive pulmonary disease (principal); F17.290 Nicotine dependence, other tobacco product, uncomplicated; Z79.82 Long term (current) use of aspirin; Z88.0 Allergy status to penicillin; Z20.822 Contact with and (suspected) exposure to COVID-19
CPT/HCPCS: 99285 ×2; 96374 ×2; 96375 ×2; 36415; 93005; 83880; 80053; 83605; 83735; 84484; 85025; 85610; 85730; 87040; 87636; 71046; J2060; J2930